=== PATIENT | male | born 1935 ===

== ENCOUNTER 2016-07-19 21:25 | Inpatient (IN) | payer MEDICARE, MEDICAID ==
[2016-07-19 21:31] VITALS: BMI 35.6
[2016-07-19] MEDS ORDERED: Promethazine/Cod 6.25mg-10mg/5ml Syr UD PO PRN (22:33)
[2016-07-19] MEDS: Oxycodone/Acetaminophen 5/325 mg Tab PO PRN (23:08)
[2016-07-20] MEDS: cefTRIAXone 2 GM in Sodium Chloride 0.9% 100 ML IVPB SCH (05:12)
[2016-07-20] MEDS: Enoxaparin 40 mg Syringe SC SCH (08:54)
[2016-07-20] MEDS: Oxycodone/Acetaminophen 5/325 mg Tab PO PRN ×2 (08:54→22:35)
[2016-07-20] MEDS: Pantoprazole 40 mg EC Tab PO SCH (08:55)
[2016-07-20] MEDS ORDERED: Patient's Own Med (Vancomycin 750mg [Vancomycin 750 Mg In Ns] 750 MG) IVPB SCH (09:00)
[2016-07-20] MEDS ORDERED: cefTRIAXone (Rocephin) 2 gm Inj IVPB SCH (09:00)
[2016-07-20] MEDS ORDERED: cefTRIAXone 2 GM in Sodium Chloride 0.9% 100 ML IVPB SCH (09:00)
[2016-07-20] MEDS: Insulin Lispro (humaLOG) 100 Units/ml Inj SC SCH ×2 (16:30→21:19)
--- NOTE | 2016-07-20 18:25 | CP.PCM.HP ---
History of Present Illness - History of Present Illness History of Present Illness: 81 years old male with PMH of Anemia,DM II and Gastritis,history prostate cancer ( on remission) brought to the ED bec of 2 days hx of sharp, intense,continuous, generalized abdominal pain, associated with vomiting, fever , chills, diarrhea, and loss of appetite. He was found to be hypotensive,, febrile with elevated WBC, bandemia ,elevated LFT-s and total jefferson,elevated Troponin. Ct abdomen showed :diverticulosis and CBD dilatation Patient admitted with severe sepsis to ICU due to cholangitis , started on IVF , and antibiotics . Surgery , GI and ID consulted.He underwent open Cholecystectomy, Cholangiogram and CBD Exploration and at present post op day 5 and doing well. Right upper quadrant ELYSIA drain and T-tube present with small drainage and antibiotics changed to Vanco , Flagyl and rocephin . Patient transferred to TCU for physical therapy and continuation of IV antibiotics At present feeling well, denies any abdominal pain, nausea, vomiting, fever, chills. tolerating diet. PMH: Anemia, Dementia, Diabetes, Gastritis, HTN, Cancer of the Prostate with seeding PSH:open c]holecystectomy SH: No illegal drugs; No cigarette smoking; Occasional Alcohol; Lives with the family FH: No Known Family Hx Allergies: NKDA ROS ; 14 point system review negative except above Present on Admission - Present on Admission Any Indicators Present on Admission: No Review of Systems - Review of Systems All systems: reviewed and no additional remarkable complaints except Past Patient History - Infectious Disease Hx of Infectious Diseases: None - Tetanus Immunizations Tetanus Immunization: Unknown - Past Medical History & Family History Past Medical History?: Yes Past Family History: Reviewed and not pertinent - Past Social History Smoking Status: Never Smoked Chewing Tobacco Use: No Cigar Use: No Alcohol: None Drugs: Denies Home Situation {Lives}: With Family Domestic Violence: Negative - CARDIAC Hx Hypertension: Yes - PULMONARY Hx Respiratory Disorders: No - NEUROLOGICAL Hx Dementia: Yes - HEENT Hx Deafness: (Hard of hearing) - RENAL Hx Chronic Kidney Disease: No - ENDOCRINE/METABOLIC Hx Hypothyroidism: Yes - HEMATOLOGICAL/ONCOLOGICAL Hx Anemia: Yes - INTEGUMENTARY Hx Dermatological Problems: No - MUSCULOSKELETAL/RHEUMATOLOGICAL Hx Falls: No - GASTROINTESTINAL Hx Gastritis: Yes - GENITOURINARY/GYNECOLOGICAL Hx Genitourinary Disorders: No - PSYCHIATRIC Hx Substance Use: No - SURGICAL HISTORY Hx Cholecystectomy: Yes - ANESTHESIA Hx Anesthesia: Yes Hx Anesthesia Reactions: No Meds Allergies/Adverse Reactions: Allergies Allergy/AdvReac Type Severity Reaction Status Date / Time No Known Allergies Allergy Verified 07/12/16 17:21 Physical Exam - Constitutional Appears: Non-toxic, No Acute Distress - Head Exam Head Exam: ATRAUMATIC, NORMAL INSPECTION, NORMOCEPHALIC - Eye Exam Eye Exam: EOMI, Normal appearance, PERRL Pupil Exam: NORMAL ACCOMODATION - ENT Exam ENT Exam: Mucous Membranes Moist, Normal Exam - Neck Exam Neck exam: Positive for: Full Rom, Normal Inspection - Respiratory Exam Respiratory Exam: Clear to Auscultation Bilateral, NORMAL BREATHING PATTERN. absent: Rales, Rhonchi, Wheezes - Cardiovascular Exam Cardiovascular Exam: REGULAR RHYTHM, RRR, +S1, +S2. absent: JVD - GI/Abdominal Exam GI & Abdominal Exam: Normal Bowel Sounds, Soft. absent: Distended, Guarding, Rebound Additional comments: right upper quadrant T tube and ELYSIA drain in place - Rectal Exam Rectal Exam: Deferred - Extremities Exam Extremities exam: Positive for: normal capillary refill, normal inspection, pedal pulses present. Negative for: calf tenderness, pedal edema - Back Exam Back exam: NORMAL INSPECTION - Neurological Exam Neurological exam: Alert, CN II-XII Intact, Oriented x3, Reflexes Normal - Psychiatric Exam Psychiatric exam: Normal Affect, Normal Mood - Skin Skin Exam: Dry, Intact, Pallor, Warm Results - Vital Signs Recent Vital Signs: Last Vital Signs Temp 97.9 F 07/20/16 18:08 Pulse 88 07/20/16 18:08 Resp 20 07/20/16 18:08 BP 132/78 07/20/16 18:08 Pulse Ox 99 07/20/16 18:08 Assessment & Plan - Assessment and Plan (Free Text) Assessment: 81 years old male with PMH of Anemia,DM II and Gastritis,history prostate cancer ( on remission) brought to the ED bec of 2 days hx of sharp, intense,continuous, generalized abdominal pain, associated with vomiting, fever , chills, diarrhea, and loss of appetite. He was found to be hypotensive,, febrile with elevated WBC, bandemia ,elevated LFT-s and total jefferson, elevatedTroponin. Ct abdomen showed :diverticulosis and CBD dilatation Patient admitted with severe sepsis to ICU , started on IVF, and antibiotics . Surgery , GI and ID consulted. 3 - underwent Open Cholecystectomy, Cholangiogram and CBD Exploration. At present post op #5 doing well , extubated , hemodynamically stable, tolerating diet. right upper quadrant ELYSIA drain and T-tube present with small drainage. Initial blood cx x 2 were positive for E.coli so patient was started on Meropenem and Flagyl and also received 1 dose of Genta for 7 days. Repeat blood cx with no growth but wound cx growing Enterococcus Gallinarum. Antibiotics changed to Vanco 750 mg IV daily for 7 more dys for enterococcus , Rocephin 2 G Iv daily for 7 more days and Flagyl 500 mg PO q8 for 7 more days for E. Coli bacteremia Physical therapy consulted and recommended TCU. Patient now in TCU for physical therapy and continue IV antibiotics. 1. Choledocholithiasis/Cholangitis with sepsis s/p open Cholecystectomy and intraop CBD exploration # 5 , doing well LFT-s, total bilirubin and WBC trending now normalized Continue pain management PRN Tolerating diet. Blood c/s x 2 positive for E coli and repeat blood cx is with no growth , wound cx positive for Enterococcus Received Meropenem, and Flagyl IV for 7 days Continue Vanco , Flagyl and Rocephin for 7 more days as per ID Continue ambulation Keep T-tube and ELYSIA drain in place 2.DM II uncontrolled Continue accu / insulin coverage on metformin Actos and Amaryl on hold 3.Gastritis on Protonix 4. Hypertension lisinopril on hold Started on Coreg and BP controlled 5.Diverticulosis stable , no signs of diverticulitis C diff : negative on Flagyl 6. History prostate cancer on remission 7. DVT prophylaxis lovenox and SCD
[2016-07-21] MEDS: cefTRIAXone 2 GM in Sodium Chloride 0.9% 100 ML IVPB SCH (05:04)
[2016-07-21] MEDS: Insulin Lispro (humaLOG) 100 Units/ml Inj SC SCH ×4 (07:26→21:23)
[2016-07-21] MEDS: Pantoprazole 40 mg EC Tab PO SCH (09:17)
[2016-07-21] MEDS: Enoxaparin 40 mg Syringe SC SCH (09:17)
--- NOTE | 2016-07-21 10:14 | CP.PCM.PN ---
<Corrine Martinez - Last Filed: 07/21/16 10:25> Subjective - Date & Time of Evaluation Date of Evaluation: 07/21/16 Time of Evaluation: 09:45 - Subjective Subjective: GENERAL SURGERY PROGRESS NOTE: DR. CARROLL Pt seen and examined at bedside in the TCU this morning. Pt seen resting comfortably in bed at time of visit. Daughter present at the bedside. Says he is feeling well overall today, does admit to a small amount of abdominal pain. Tolerating diet, however he says he does not have much of an appetite. Denies f/ n/v/c/sob/cp. Admits to passing flatus, denies diarrhea, says he had a bowel movement yesterday. Says he is walking well with physical therapy. Denies any other problems. Objective - Vital Signs/Intake and Output Vital Signs (last 24 hours): Temp Pulse Resp BP Pulse Ox 98.1 F 87 20 137/74 96 07/21/16 07:52 07/21/16 07:52 07/21/16 07:52 07/21/16 07:52 07/21/16 07:52 - Medications Medications: Current Medications Acetaminophen (Tylenol 325mg Tab) 650 mg PO Q4 PRN PRN Reason: fever 100.4 or pain 1-3 Enoxaparin Sodium (Lovenox) 40 mg SC DAILY [facility] PRN Reason: Protocol Last Admin: 07/21/16 09:17 Dose: 40 mg Ceftriaxone Sodium 2 gm/ (Sodium Chloride) 100 mls @ 100 mls/hr IVPB DAILY@ 0600 [facility] Last Admin: 07/21/16 05:04 Dose: 100 mls/hr Vancomycin HCl 750 mg/ Sodium (Chloride) 250 mls @ 166.667 mls/hr IVPB DAILY@ 1700 [facility] Insulin Human Lispro (Humalog) 0 units SC ACHS [facility] PRN Reason: Protocol Last Admin: 07/21/16 07:26 Dose: 3 units Metformin HCl (Glucophage) 1,000 mg PO BID [facility] Last Admin: 07/21/16 09:17 Dose: 1,000 mg Metronidazole (Flagyl) 500 mg PO Q8 [facility] Last Admin: 07/21/16 09:17 Dose: 500 mg Oxycodone/Acetaminophen (Percocet 5/325 Mg Tab) 1 tab PO Q4 PRN PRN Reason: Pain, severe (8-10) Stop: 07/22/16 22:34 Last Admin: 07/20/16 22:35 Dose: 1 tab Pantoprazole Sodium (Protonix Ec Tab) 40 mg PO DAILY [facility] Last Admin: 07/21/16 09:17 Dose: 40 mg Promethazine HCl/Codeine (Phenergan/Codeine Oral Syrup) 10 ml PO Q6 PRN PRN Reason: Cough Last Admin: 07/21/16 01:31 Dose: 10 ml - Constitutional Appears: Well, Non-toxic, No Acute Distress - Eye Exam Eye Exam: EOMI, Normal appearance - Respiratory Exam Respiratory Exam: NORMAL BREATHING PATTERN. absent: Respiratory Distress - Cardiovascular Exam Cardiovascular Exam: REGULAR RHYTHM - GI/Abdominal Exam GI & Abdominal Exam: Soft, Tenderness (slight tenderness to RUQ). absent: Distended, Firm, Guarding, Rigid Additional comments: Cristiano and T tube in place and draining. Dressings c/d/i - Neurological Exam Neurological Exam: Alert, Awake, Oriented x3 - Psychiatric Exam Psychiatric exam: Normal Affect, Normal Mood - Skin Skin Exam: Normal Color, Warm Assessment and Plan - Assessment and Plan (Free Text) Assessment: 81 yo male with severe sepsis and choledocholithiasis with failed ERCP and unsuccessful PTC now s/p open cholecystectomy with IOC, control of hepatic bleeding, common bile duct exploration, T tube placement POD #6 Plan: - Pt seen and evaluated at bedside. - Afebrile, VSS - T Tube had 150 cc bilious output overnight per nursing - Cristiano drain had 50 cc serosanguinous overnight - Tolerating low fat/CCD diet - C/w abx per ID - Plan discussed with Dr. Carroll -Dr. Martinez, PGY-1 <Des Carroll - Last Filed: 07/25/16 21:45> Objective - Vital Signs/Intake and Output Vital Signs (last 24 hours): Temp Pulse Resp BP Pulse Ox 97.8 F 20 L 89 H 126/85 98 07/25/16 20:35 07/25/16 20:35 07/25/16 20:35 07/25/16 20:35 07/25/16 20:35 - Medications Medications: Current Medications Acetaminophen (Tylenol 325mg Tab) 650 mg PO Q4 PRN PRN Reason: fever 100.4 or pain 1-3 Last Admin: 07/23/16 14:20 Dose: 650 mg Enoxaparin Sodium (Lovenox) 40 mg SC DAILY [facility] PRN Reason: Protocol Last Admin: 07/25/16 09:21 Dose: 40 mg Ceftriaxone Sodium 2 gm/ (Sodium Chloride) 100 mls @ 100 mls/hr IVPB DAILY@ 0600 [facility] Last Admin: 07/25/16 05:00 Dose: 100 mls/hr Vancomycin HCl 750 mg/ Sodium (Chloride) 250 mls @ 166.667 mls/hr IVPB DAILY@ 1700 [facility] Last Admin: 07/25/16 17:06 Dose: 166.667 mls/hr Insulin Human Lispro (Humalog) 0 units SC ACHS [facility] PRN Reason: Protocol Last Admin: 07/25/16 17:06 Dose: 3 units Metformin HCl (Glucophage) 1,000 mg PO BID [facility] Last Admin: 07/25/16 17:07 Dose: 1,000 mg Metronidazole (Flagyl) 500 mg PO Q8 [facility] Last Admin: 07/25/16 17:07 Dose: 500 mg Oxycodone/Acetaminophen (Percocet 5/325 Mg Tab) 1 tab PO Q4 PRN PRN Reason: Pain, moderate (4-7) Stop: 07/26/16 14:26 Last Admin: 07/24/16 21:29 Dose: 1 tab Oxycodone/Acetaminophen (Percocet 5/325 Mg Tab) 1 tab PO Q4 PRN PRN Reason: Pain, severe (8-10) Stop: 07/26/16 16:55 Pantoprazole Sodium (Protonix Ec Tab) 40 mg PO DAILY [facility] Last Admin: 07/25/16 09:21 Dose: 40 mg Promethazine HCl/Codeine (Phenergan/Codeine Oral Syrup) 10 ml PO Q6 PRN PRN Reason: Cough Last Admin: 07/21/16 01:31 Dose: 10 ml - Labs Labs: 07/25/16 05:30 Attending/Attestation - Attestation I have personally seen and examined this patient.: Yes I have fully participated in the care of the patient.: Yes I have reviewed all pertinent clinical information, including history, physical exam and plan: Yes Notes (Text): 07/25/16 21:44 Pt was seen and examined at bedside on 07/23/16 Agree with above note and assessment Pt is improving clinically C.w current mx DC plan
[2016-07-21] MEDS: Oxycodone/Acetaminophen 5/325 mg Tab PO PRN ×2 (11:31→17:58)
[2016-07-22] MEDS: Oxycodone/Acetaminophen 5/325 mg Tab PO PRN ×3 (00:09→13:54)
[2016-07-22] MEDS: cefTRIAXone 2 GM in Sodium Chloride 0.9% 100 ML IVPB SCH (05:02)
[2016-07-22] MEDS: Insulin Lispro (humaLOG) 100 Units/ml Inj SC SCH ×4 (07:01→21:24)
[2016-07-22] MEDS: Enoxaparin 40 mg Syringe SC SCH (08:35)
[2016-07-22] MEDS: Pantoprazole 40 mg EC Tab PO SCH (08:36)
--- NOTE | 2016-07-22 10:25 | CP.PCM.PN ---
Subjective - Date & Time of Evaluation Date of Evaluation: 07/22/16 Time of Evaluation: 10:23 - Subjective Subjective: Patient seen and examined at bedside, states he is feeling better today, tolerating pt and all meds well. No cp, no dyspnea, pain is well controlled. T Tube 160 cc bilious overnight, 40 cc from anabela serosang overnight. Tolerating diet well. VSS NAD. Objective - Vital Signs/Intake and Output Vital Signs (last 24 hours): Temp Pulse Resp BP Pulse Ox 97.2 F L 88 20 132/67 20 L 07/22/16 08:54 07/22/16 08:54 07/22/16 08:54 07/22/16 08:54 07/22/16 08:54 Intake and Output: 07/22/16 07/22/16 06:59 18:59 Output Total 200 Balance -200 - Medications Medications: Current Medications Acetaminophen (Tylenol 325mg Tab) 650 mg PO Q4 PRN PRN Reason: fever 100.4 or pain 1-3 Enoxaparin Sodium (Lovenox) 40 mg SC DAILY [facility] PRN Reason: Protocol Last Admin: 07/22/16 08:35 Dose: 40 mg Ceftriaxone Sodium 2 gm/ (Sodium Chloride) 100 mls @ 100 mls/hr IVPB DAILY@ 0600 [facility] Last Admin: 07/22/16 05:02 Dose: 100 mls/hr Vancomycin HCl 750 mg/ Sodium (Chloride) 250 mls @ 166.667 mls/hr IVPB DAILY@ 1700 [facility] Last Admin: 07/21/16 17:33 Dose: 166.667 mls/hr Insulin Human Lispro (Humalog) 0 units SC ACHS [facility] PRN Reason: Protocol Last Admin: 07/22/16 07:01 Dose: 3 units Metformin HCl (Glucophage) 1,000 mg PO BID [facility] Last Admin: 07/22/16 08:36 Dose: 1,000 mg Metronidazole (Flagyl) 500 mg PO Q8 [facility] Last Admin: 07/22/16 08:36 Dose: 500 mg Oxycodone/Acetaminophen (Percocet 5/325 Mg Tab) 1 tab PO Q4 PRN PRN Reason: Pain, severe (8-10) Stop: 07/22/16 22:34 Last Admin: 07/22/16 08:35 Dose: 1 tab Pantoprazole Sodium (Protonix Ec Tab) 40 mg PO DAILY [facility] Last Admin: 07/22/16 08:36 Dose: 40 mg Promethazine HCl/Codeine (Phenergan/Codeine Oral Syrup) 10 ml PO Q6 PRN PRN Reason: Cough Last Admin: 07/21/16 01:31 Dose: 10 ml - Constitutional Appears: Non-toxic, No Acute Distress - Head Exam Head Exam: ATRAUMATIC, NORMOCEPHALIC - Eye Exam Eye Exam: EOMI, Normal appearance, PERRL Pupil Exam: NORMAL ACCOMODATION - ENT Exam ENT Exam: Mucous Membranes Moist, Normal Exam - Neck Exam Neck Exam: Full ROM, Normal Inspection - Respiratory Exam Respiratory Exam: Clear to Ausculation Bilateral, NORMAL BREATHING PATTERN. absent: Wheezes, Respiratory Distress - Cardiovascular Exam Cardiovascular Exam: RRR, +S1, +S2. absent: Gallop, Rubs - GI/Abdominal Exam GI & Abdominal Exam: Soft, Tenderness (op sites, drains in place), Normal Bowel Sounds. absent: Mass, Organomegaly - Extremities Exam Extremities Exam: Normal Capillary Refill. absent: Calf Tenderness - Back Exam Back Exam: absent: CVA tenderness (L), CVA tenderness (R) - Neurological Exam Neurological Exam: Alert, Awake - Psychiatric Exam Psychiatric exam: Normal Affect, Normal Mood - Skin Skin Exam: Dry, Warm Assessment and Plan - Assessment and Plan (Free Text) Plan: 81 year old male PMH of Anemia, DM II and Gastritis, history prostate cancer (remission) initially presented with 2 days hx of sharp, intense, continuous, generalized abdominal pain, associated with vomiting, fever, chills , diarrhea, and loss of appetite. He was found to be hypotensive, febrile with elevated WBC, bandemia, elevated LFT-s and total jefferson, elevatedTroponin. Ct abdomen showed: diverticulosis and CBD dilatation Patient admitted with severe sepsis to ICU, started on IVF, and antibiotics. Surgery, GI and ID consulted. 07/15/16 - underwent Open Cholecystectomy, Cholangiogram and CBD Exploration. ( Failed ERCP and unsuccessful PTC now s/p open cholecystectomy with IOC, control of hepatic bleeding, common bile duct exploration, T tube placement) At present post op doing well, extubated, hemodynamically stable, tolerating diet. right upper quadrant ELYSIA drain and T-tube present both with small drainage. Initial blood cx x2 were positive for E.coli so patient was started on Meropenem and Flagyl and also received 1 dose of Genta for 7 days. Repeat blood cx with no growth but wound cx growing Enterococcus Gallinarum. Antibiotics changed to Vanco 750 mg IV daily for 7 more dys for enterococcus, Rocephin 2 G Iv daily for 7 more days and Flagyl 500 mg PO q8 for 7 more days for E. Coli bacteremia Physical therapy consulted and recommended TCU. Patient now in TCU for physical therapy and continue IV antibiotics. 1. Choledocholithiasis/Cholangitis with sepsis s/p open Cholecystectomy and intraop CBD exploration #7, doing well LFT-s, total bilirubin and WBC trending now normalized Continue pain management PRN Followed by surgery as well, Dr. Carroll, appreciated Tolerating diet. Blood c/s x 2 positive for E coli and repeat blood cx is with no growth, wound cx positive for Enterococcus Received Meropenem, and Flagyl IV for 7 days Continue Vanco , Flagyl and Rocephin today is day 4 of 7 more days as per ID Continue ambulation Keep T-tube and ELYSIA drain in place 2.DM II uncontrolled Continue accu / insulin coverage on metformin Actos and Amaryl on hold 3.Gastritis on Protonix 4. Hypertension lisinopril on hold Started on Coreg and BP controlled 5.Diverticulosis stable , no signs of diverticulitis C diff : negative on Flagyl 6. History prostate cancer on remission 7. DVT prophylaxis lovenox and SCD
[2016-07-23] MEDS: cefTRIAXone 2 GM in Sodium Chloride 0.9% 100 ML IVPB SCH (05:57)
[2016-07-23] MEDS: Insulin Lispro (humaLOG) 100 Units/ml Inj SC SCH ×4 (07:11→22:04)
--- NOTE | 2016-07-23 07:23 | CP.PCM.PN ---
<Bianca Baron - Last Filed: 07/23/16 07:44> Subjective - Date & Time of Evaluation Date of Evaluation: 07/23/16 Time of Evaluation: 07:00 - Subjective Subjective: GENERAL SURGERY PROGRESS NOTE FOR DR. CARROLL Patient seen and examined at bedside in the TCU. He is doing well and only has abdominal pain when he moves. He is tolerating his low fat/CCD diet, however he states that he is not eating much because he doesn't like the food. He denies nausea or vomiting. He is having some diarrhea. He is using his IS. He is doing his PT. Objective - Vital Signs/Intake and Output Vital Signs (last 24 hours): Temp Pulse Resp BP Pulse Ox 97.7 F 90 20 134/67 97 07/22/16 20:31 07/22/16 20:31 07/22/16 20:31 07/22/16 20:31 07/22/16 20:31 Intake and Output: 07/23/16 07/23/16 06:59 18:59 Intake Total 100 Output Total 265 Balance -165 - Medications Medications: Current Medications Acetaminophen (Tylenol 325mg Tab) 650 mg PO Q4 PRN PRN Reason: fever 100.4 or pain 1-3 Enoxaparin Sodium (Lovenox) 40 mg SC DAILY [facility] PRN Reason: Protocol Last Admin: 07/22/16 08:35 Dose: 40 mg Ceftriaxone Sodium 2 gm/ (Sodium Chloride) 100 mls @ 100 mls/hr IVPB DAILY@ 0600 [facility] Last Admin: 07/23/16 05:57 Dose: 100 mls/hr Vancomycin HCl 750 mg/ Sodium (Chloride) 250 mls @ 166.667 mls/hr IVPB DAILY@ 1700 [facility] Last Admin: 07/22/16 17:25 Dose: 166.667 mls/hr Insulin Human Lispro (Humalog) 0 units SC ACHS [facility] PRN Reason: Protocol Last Admin: 07/23/16 07:11 Dose: 3 units Metformin HCl (Glucophage) 1,000 mg PO BID [facility] Last Admin: 07/22/16 17:27 Dose: 1,000 mg Metronidazole (Flagyl) 500 mg PO Q8 [facility] Last Admin: 07/23/16 01:36 Dose: 500 mg Pantoprazole Sodium (Protonix Ec Tab) 40 mg PO DAILY [facility] Last Admin: 07/22/16 08:36 Dose: 40 mg Promethazine HCl/Codeine (Phenergan/Codeine Oral Syrup) 10 ml PO Q6 PRN PRN Reason: Cough Last Admin: 07/21/16 01:31 Dose: 10 ml - Constitutional Appears: Non-toxic, No Acute Distress - Head Exam Head Exam: ATRAUMATIC, NORMAL INSPECTION - Eye Exam Eye Exam: EOMI, Normal appearance - Respiratory Exam Respiratory Exam: NORMAL BREATHING PATTERN. absent: Respiratory Distress - Cardiovascular Exam Cardiovascular Exam: +S1, +S2 - GI/Abdominal Exam GI & Abdominal Exam: Soft, Tenderness (RUQ). absent: Distended, Firm, Guarding , Rigid, Rebound Additional comments: Dressings around drains with small amount drainage, changed Gordon in place Cristiano drain with 40cc serosanguinous output T tube with 225cc bilious output - Neurological Exam Neurological Exam: Alert, Awake, Oriented x3 - Psychiatric Exam Psychiatric exam: Normal Affect, Normal Mood - Skin Skin Exam: Dry, Normal Color, Warm Assessment and Plan - Assessment and Plan (Free Text) Assessment: 81yo M with severe sepsis and choledocholithiasis with failed ERCP and unsuccessful PTC now s/p Open cholecystectomy with IOC, control of hepatic bleeding, common bile duct exploration, T tube placement POD #8 - Afebrile, VSS - T Tube had 225cc bilious output - Cristiano drain had 340cc serosanguinous output - Both Cristiano drain and T tube dressings changed - Tolerating low fat/CCD diet - Clear for DC home from surgical standpoint with PO Abx, will discuss with ID - Patient will go home with both T tube and Cristiano drain in place. Dr. Carroll will remove cristiano drain in his office. T tube will remain in place for 4-6 weeks. - Discussed plan with Dr. Carly Baron PGY-2 <Des Carroll - Last Filed: 07/28/16 18:04> Objective - Vital Signs/Intake and Output Vital Signs (last 24 hours): Temp Pulse Resp BP Pulse Ox 98.1 F 90 20 117/66 97 07/28/16 16:58 07/28/16 16:58 07/28/16 16:58 07/28/16 16:58 07/28/16 16:58 Intake and Output: 07/28/16 07/28/16 06:59 18:59 Output Total 150 Balance -150 - Medications Medications: Current Medications Acetaminophen (Tylenol 325mg Tab) 650 mg PO Q4 PRN PRN Reason: fever 100.4 or pain 1-3 Last Admin: 07/23/16 14:20 Dose: 650 mg Enoxaparin Sodium (Lovenox) 40 mg SC DAILY [facility] PRN Reason: Protocol Last Admin: 07/28/16 09:09 Dose: 40 mg Glipizide (Glucotrol Xl) 5 mg PO BRK [facility] Last Admin: 07/28/16 09:09 Dose: 5 mg Ceftriaxone Sodium 2 gm/ (Sodium Chloride) 100 mls @ 100 mls/hr IVPB DAILY@ 0600 [facility] Last Admin: 07/28/16 05:37 Dose: 100 mls/hr Insulin Human Lispro (Humalog) 0 units SC ACHS [facility] PRN Reason: Protocol Last Admin: 07/28/16 17:50 Dose: 1 units Metformin HCl (Glucophage) 1,000 mg PO BID [facility] Last Admin: 07/28/16 17:48 Dose: 1,000 mg Metronidazole (Flagyl) 500 mg PO Q8 [facility] Last Admin: 07/28/16 17:22 Dose: 500 mg Pantoprazole Sodium (Protonix Ec Tab) 40 mg PO DAILY [facility] Last Admin: 07/28/16 09:09 Dose: 40 mg Promethazine HCl/Codeine (Phenergan/Codeine Oral Syrup) 10 ml PO Q6 PRN PRN Reason: Cough Last Admin: 07/21/16 01:31 Dose: 10 ml - Labs Labs: 07/28/16 07:00 07/28/16 07:00 Attending/Attestation - Attestation I have personally seen and examined this patient.: Yes I have fully participated in the care of the patient.: Yes I have reviewed all pertinent clinical information, including history, physical exam and plan: Yes Notes (Text): 07/28/16 18:03 Pt was seen and examined at bedside on 07/23/16 Agree with above note and assessment. C/w current mx DC Plan F/U as out pt
[2016-07-23] MEDS: Pantoprazole 40 mg EC Tab PO SCH (08:48)
[2016-07-23] MEDS: Enoxaparin 40 mg Syringe SC SCH (08:48)
--- NOTE | 2016-07-23 14:55 | CP.PCM.PCO ---
Assessment & Plan - Assessment and Plan (Free Text) Assessment: have d/w hospitalist that pt. needs total of 14 days IV abx for bacteremia. he has already completed 11 days of Iv abx and hence needs another 3 days of IV ceftriaxone for his bacteremia treatement. he is also on metronidazole which can be given by mouth. once pt. is ready to be d/c he can be d/c on oral flagyl adn ampiciiln for another 7 days and to have close f/u with his surgeon as outpatient. All above d/w at length.
[2016-07-23] MEDS ORDERED: Oxycodone/Acetaminophen 5/325 mg Tab PO PRN (16:54)
[2016-07-24] MEDS: cefTRIAXone 2 GM in Sodium Chloride 0.9% 100 ML IVPB SCH (06:37)
[2016-07-24] MEDS: Insulin Lispro (humaLOG) 100 Units/ml Inj SC SCH ×4 (06:38→21:26)
[2016-07-24] MEDS: Pantoprazole 40 mg EC Tab PO SCH (09:08)
[2016-07-24] MEDS: Oxycodone/Acetaminophen 5/325 mg Tab PO PRN ×2 (09:08→21:29)
[2016-07-24] MEDS: Enoxaparin 40 mg Syringe SC SCH (09:09)
[2016-07-25] MEDS: cefTRIAXone 2 GM in Sodium Chloride 0.9% 100 ML IVPB SCH (05:00)
[2016-07-25] MEDS: Insulin Lispro (humaLOG) 100 Units/ml Inj SC SCH ×4 (06:44→23:03)
[2016-07-25 08:23] LABS: BLOOD UREA NITROGEN 15 mg/dl (9-20); CALCIUM 7.6 mg/dL (8.4-10.2); CARBON DIOXIDE 24 mmol/L (22-30); CHLORIDE 104 mmol/L (98-107); GFR AFRICAN-AMERICAN > 60; GLUCOSE,RANDOM 203 mg/dL (75-110); POTASSIUM 3.4 MMOL/L (3.6-5.0); SODIUM 132 mmol/l (132-148)
[2016-07-25] MEDS: Pantoprazole 40 mg EC Tab PO SCH (09:21)
[2016-07-25] MEDS: Enoxaparin 40 mg Syringe SC SCH (09:21)
[2016-07-26] MEDS: cefTRIAXone 2 GM in Sodium Chloride 0.9% 100 ML IVPB SCH (05:52)
[2016-07-26] MEDS: Insulin Lispro (humaLOG) 100 Units/ml Inj SC SCH ×4 (06:37→21:47)
[2016-07-26 08:23] VITALS: RESP 20
[2016-07-26] MEDS: Pantoprazole 40 mg EC Tab PO SCH (09:11)
[2016-07-26] MEDS: Enoxaparin 40 mg Syringe SC SCH (09:12)
--- NOTE | 2016-07-26 09:16 | CP.PCM.PN ---
<Corrine Martinez - Last Filed: 07/26/16 09:19> Subjective - Date & Time of Evaluation Date of Evaluation: 07/26/16 Time of Evaluation: 09:00 - Subjective Subjective: GENERAL SURGERY PROGRESS NOTE FOR DR. CARROLL Pt seen at the bedside in TCU this morning. Seen sitting in the bedside chair with present at time of visit. Reports some mild abdominal pain today. Says he has been eating much more the past few days. Denies f/n/v/c/sob/cp. Passing flatus and having bowel movements which he reports as somewhat loose in consistency. Says he is participating in PT and it is going well. Denies any other complaints at this time. Objective - Vital Signs/Intake and Output Vital Signs (last 24 hours): Temp Pulse Resp BP Pulse Ox 98.1 F 89 20 136/63 98 07/26/16 08:22 07/26/16 08:22 07/26/16 08:22 07/26/16 08:22 07/26/16 08:22 Intake and Output: 07/26/16 07/26/16 06:59 18:59 Output Total 250 Balance -250 - Medications Medications: Current Medications Acetaminophen (Tylenol 325mg Tab) 650 mg PO Q4 PRN PRN Reason: fever 100.4 or pain 1-3 Last Admin: 07/23/16 14:20 Dose: 650 mg Enoxaparin Sodium (Lovenox) 40 mg SC DAILY [facility] PRN Reason: Protocol Last Admin: 07/26/16 09:12 Dose: 40 mg Ceftriaxone Sodium 2 gm/ (Sodium Chloride) 100 mls @ 100 mls/hr IVPB DAILY@ 0600 [facility] Last Admin: 07/26/16 05:52 Dose: 100 mls/hr Vancomycin HCl 750 mg/ Sodium (Chloride) 250 mls @ 166.667 mls/hr IVPB DAILY@ 1700 [facility] Last Admin: 07/25/16 17:06 Dose: 166.667 mls/hr Insulin Human Lispro (Humalog) 0 units SC ACHS [facility] PRN Reason: Protocol Last Admin: 07/26/16 06:37 Dose: 4 units Metformin HCl (Glucophage) 1,000 mg PO BID [facility] Last Admin: 07/26/16 09:11 Dose: 1,000 mg Metronidazole (Flagyl) 500 mg PO Q8 [facility] Last Admin: 07/26/16 09:11 Dose: 500 mg Oxycodone/Acetaminophen (Percocet 5/325 Mg Tab) 1 tab PO Q4 PRN PRN Reason: Pain, moderate (4-7) Stop: 07/26/16 14:26 Last Admin: 07/24/16 21:29 Dose: 1 tab Oxycodone/Acetaminophen (Percocet 5/325 Mg Tab) 1 tab PO Q4 PRN PRN Reason: Pain, severe (8-10) Stop: 07/26/16 16:55 Pantoprazole Sodium (Protonix Ec Tab) 40 mg PO DAILY [facility] Last Admin: 07/26/16 09:11 Dose: 40 mg Promethazine HCl/Codeine (Phenergan/Codeine Oral Syrup) 10 ml PO Q6 PRN PRN Reason: Cough Last Admin: 07/21/16 01:31 Dose: 10 ml - Labs Labs: 07/25/16 05:30 - Constitutional Appears: Well, Non-toxic, No Acute Distress - Head Exam Head Exam: ATRAUMATIC, NORMAL INSPECTION - Eye Exam Eye Exam: EOMI, Normal appearance - Respiratory Exam Respiratory Exam: NORMAL BREATHING PATTERN. absent: Respiratory Distress - Cardiovascular Exam Cardiovascular Exam: REGULAR RHYTHM - GI/Abdominal Exam GI & Abdominal Exam: Soft, Tenderness (slight tenderness RUQ). absent: Distended, Firm, Guarding, Rigid Additional comments: Dressings to drains appear c/d/i [place] well-coapted to upper abdominal incision ELYSIA drain: 20 cc T tube: 100 cc - Neurological Exam Neurological Exam: Alert, Awake, Oriented x3 - Psychiatric Exam Psychiatric exam: Normal Affect, Normal Mood - Skin Skin Exam: Normal Color, Warm Assessment and Plan - Assessment and Plan (Free Text) Assessment: 81 yo male pt w/ severe sepsis and choledocholithiasis with failed ERCP and unsuccessful PTC now s/p open cholecystectomy with IOC, control of hepatic bleeding, common bile duct exploration, T tube placement POD #11 Plan: - Pt seen and examined at bedside - Afebrile, VSS - ELYSIA drain removed today. Pressure dressing applied - T tube dressing changed - Cleared for d/c home per surgery w/ po abx (will discuss with ID) - Pt will go home with T tube in place x 4-6 weeks - Pt to follow up with Dr. Carroll in the office - Plan discussed w/ Dr. Carroll -Corrine Martinez, PGY-1 <Des Carroll - Last Filed: 07/28/16 17:55> Objective - Vital Signs/Intake and Output Vital Signs (last 24 hours): Temp Pulse Resp BP Pulse Ox 98.1 F 90 20 117/66 97 07/28/16 16:58 07/28/16 16:58 07/28/16 16:58 07/28/16 16:58 07/28/16 16:58 Intake and Output: 07/28/16 07/28/16 06:59 18:59 Output Total 150 Balance -150 - Medications Medications: Current Medications Acetaminophen (Tylenol 325mg Tab) 650 mg PO Q4 PRN PRN Reason: fever 100.4 or pain 1-3 Last Admin: 07/23/16 14:20 Dose: 650 mg Enoxaparin Sodium (Lovenox) 40 mg SC DAILY [facility] PRN Reason: Protocol Last Admin: 07/28/16 09:09 Dose: 40 mg Glipizide (Glucotrol Xl) 5 mg PO BRK [facility] Last Admin: 07/28/16 09:09 Dose: 5 mg Ceftriaxone Sodium 2 gm/ (Sodium Chloride) 100 mls @ 100 mls/hr IVPB DAILY@ 0600 [facility] Last Admin: 07/28/16 05:37 Dose: 100 mls/hr Insulin Human Lispro (Humalog) 0 units SC ACHS [facility] PRN Reason: Protocol Last Admin: 07/28/16 17:50 Dose: 1 units Metformin HCl (Glucophage) 1,000 mg PO BID [facility] Last Admin: 07/28/16 17:48 Dose: 1,000 mg Metronidazole (Flagyl) 500 mg PO Q8 [facility] Last Admin: 07/28/16 17:22 Dose: 500 mg Pantoprazole Sodium (Protonix Ec Tab) 40 mg PO DAILY [facility] Last Admin: 07/28/16 09:09 Dose: 40 mg Promethazine HCl/Codeine (Phenergan/Codeine Oral Syrup) 10 ml PO Q6 PRN PRN Reason: Cough Last Admin: 07/21/16 01:31 Dose: 10 ml - Labs Labs: 07/28/16 07:00 07/28/16 07:00 Attending/Attestation - Attestation I have personally seen and examined this patient.: Yes I have fully participated in the care of the patient.: Yes I have reviewed all pertinent clinical information, including history, physical exam and plan: Yes Notes (Text): 07/28/16 17:54 Pt was seen and examined at bedside on 07/26/16 Agree with above note and assessment. DC Plan C/w current mx
[2016-07-26] MEDS ORDERED: Potassium Chloride 20 mEq ER Tab PO ONE (09:46)
[2016-07-27] MEDS: cefTRIAXone 2 GM in Sodium Chloride 0.9% 100 ML IVPB SCH (06:13)
[2016-07-27] MEDS: Insulin Lispro (humaLOG) 100 Units/ml Inj SC SCH ×4 (06:56→21:15)
--- NOTE | 2016-07-27 07:21 | CARD ---
APPROVED REPORT EKG Measurement Heart [id number] <Conclusion> Atrial Fibrillation Low voltage QRS Cannot rule out Inferior infarct, age undetermined Abnormal ECG
[2016-07-27] MEDS: Pantoprazole 40 mg EC Tab PO SCH (09:05)
[2016-07-27] MEDS: Enoxaparin 40 mg Syringe SC SCH (09:05)
--- NOTE | 2016-07-27 15:26 | CP.PCM.PN ---
Subjective - Date & Time of Evaluation Date of Evaluation: 07/27/16 Time of Evaluation: 15:00 - Subjective Subjective: pt is afebrile participates with Physical therapy ELYSIA drain removed yesterday T tube drain in place with bilous drainage Pt is tolerating PO intake minimal abdominal discomfort and has some sl tenderness + pedal edema however no calf pain nor tenderness denies CP no cough no SOB Objective - Vital Signs/Intake and Output Vital Signs (last 24 hours): Temp Pulse Resp BP Pulse Ox 97.2 F L 88 20 133/76 98 07/27/16 08:35 07/27/16 08:35 07/27/16 08:35 07/27/16 08:35 07/27/16 08:35 Intake and Output: 07/27/16 07/27/16 06:59 18:59 Output Total 265 Balance -265 - Medications Medications: Current Medications Acetaminophen (Tylenol 325mg Tab) 650 mg PO Q4 PRN PRN Reason: fever 100.4 or pain 1-3 Last Admin: 07/23/16 14:20 Dose: 650 mg Enoxaparin Sodium (Lovenox) 40 mg SC DAILY [facility] PRN Reason: Protocol Last Admin: 07/27/16 09:05 Dose: 40 mg Ceftriaxone Sodium 2 gm/ (Sodium Chloride) 100 mls @ 100 mls/hr IVPB DAILY@ 0600 [facility] Last Admin: 07/27/16 06:13 Dose: 100 mls/hr Vancomycin HCl 750 mg/ Sodium (Chloride) 250 mls @ 166.667 mls/hr IVPB DAILY@ 1700 [facility] Last Admin: 07/26/16 17:05 Dose: 166.667 mls/hr Insulin Human Lispro (Humalog) 0 units SC ACHS [facility] PRN Reason: Protocol Last Admin: 07/27/16 12:04 Dose: 3 units Metformin HCl (Glucophage) 1,000 mg PO BID [facility] Last Admin: 07/27/16 09:05 Dose: 1,000 mg Metronidazole (Flagyl) 500 mg PO Q8 [facility] Last Admin: 07/27/16 09:06 Dose: 500 mg Pantoprazole Sodium (Protonix Ec Tab) 40 mg PO DAILY [facility] Last Admin: 07/27/16 09:05 Dose: 40 mg Promethazine HCl/Codeine (Phenergan/Codeine Oral Syrup) 10 ml PO Q6 PRN PRN Reason: Cough Last Admin: 07/21/16 01:31 Dose: 10 ml - Labs Labs: 07/25/16 05:30 - Constitutional Appears: Non-toxic, No Acute Distress - Head Exam Head Exam: NORMAL INSPECTION, NORMOCEPHALIC - Eye Exam Eye Exam: EOMI, Normal appearance Pupil Exam: NORMAL ACCOMODATION - ENT Exam ENT Exam: Mucous Membranes Moist, Normal External Ear Exam - Neck Exam Neck Exam: Full ROM. absent: Meningismus - Respiratory Exam Respiratory Exam: NORMAL BREATHING PATTERN. absent: Rales, Wheezes, Respiratory Distress - Cardiovascular Exam Cardiovascular Exam: REGULAR RHYTHM, +S1, +S2 - GI/Abdominal Exam GI & Abdominal Exam: Soft, Tenderness (minimal RUQ tenderness), Normal Bowel Sounds Additional comments: T Tube drain in place with bilious drainage dalia intact- wound looks clean - Extremities Exam Extremities Exam: Full ROM, Normal Capillary Refill, Pedal Edema. absent: Calf Tenderness - Back Exam Back Exam: Full ROM. absent: CVA tenderness (L), CVA tenderness (R) - Neurological Exam Neurological Exam: Alert, Awake, CN II-XII Intact, Oriented x3 Neuro motor strength exam: Left Upper Extremity: 5, Right Upper Extremity: 5, Left Lower Extremity: 5, Right Lower Extremity: 5 - Psychiatric Exam Psychiatric exam: Normal Affect, Normal Mood - Skin Skin Exam: Dry, Normal Color, Warm Assessment and Plan - Assessment and Plan (Free Text) Assessment: 81 year old male PMH of Anemia, DM II and Gastritis, history prostate cancer (remission) initially presented with 2 days hx of sharp, intense, continuous, generalized abdominal pain, associated with vomiting, fever, chills , diarrhea, and loss of appetite. He was found to be hypotensive, febrile with elevated WBC, bandemia, elevated LFT-s and total jefferson, elevatedTroponin. Ct abdomen showed: diverticulosis and CBD dilatation Patient admitted with severe sepsis to ICU, started on IVF, and antibiotics. Surgery, GI and ID consulted. 07/15/16 - underwent Open Cholecystectomy, Cholangiogram and CBD Exploration. ( Failed ERCP and unsuccessful PTC ) At present doing well, tolerating diet, ELYSIA drain was d/c however T-tube is still in place . Initial blood cx x2 were positive for E.coli so patient was started on Meropenem and Flagyl and also received 1 dose of Genta for 7 days. Repeat blood cx with no growth but wound cx growing Enterococcus Gallinarum. Now in TCU for Physical therapy and to continue IV antibiotics 1. Sepsis sec to Choledocholithiasis/Cholangitis s/p open Cholecystectomy and intraop CBD exploration LFT-s, total bilirubin and WBC t normalized pain management PRN Followed by surgery as well, Dr. Carroll Tolerating diet. Blood c/s x 2 positive for E coli and repeat blood cx is with no growth, wound cx positive for Enterococcus Received Meropenem, and Flagyl IV Now on IV Ceftriaxone and PO Flagyl- will continue until pt is d/c on Tuesday d/c IV Vanco ELYSIA drain d/c yesterday T tube drain in place rpt labs in am 2.DM II uncontrolled Continue accu / insulin coverage on metformin add low dose Glucotrol 3.Gastritis on Protonix 4. Hypertension Bp controlled without meds 5.Diverticulosis stable , no signs of diverticulitis C diff : negative on Flagyl 6. History prostate cancer on remission 7. DVT prophylaxis lovenox and SCD
[2016-07-28] MEDS: cefTRIAXone 2 GM in Sodium Chloride 0.9% 100 ML IVPB SCH (05:37)
[2016-07-28] MEDS: Insulin Lispro (humaLOG) 100 Units/ml Inj SC SCH ×4 (06:37→21:15)
[2016-07-28 07:48] LABS: HEMATOCRIT 30.4 % (35.0-51.0); RED CELL DISTRIBUTION WIDTH 15.9 % (11.5-14.5); WHITE BLOOD COUNT 7.4 K/uL (4.8-10.8)
[2016-07-28 07:51] LABS: ALB/GLOB RATIO 0.9 (1.0-2.1); ALKALINE PHOSPHATASE 227 U/L (38-126); ALT/SGPT 43 U/L (21-72); AST/SGOT 42 U/L (17-59); BILIRUBIN,TOTAL 0.7 mg/dl (0.2-1.3); BLOOD UREA NITROGEN 15 mg/dl (9-20); CALCIUM 7.9 mg/dL (8.4-10.2); CARBON DIOXIDE 22 mmol/L (22-30); CHLORIDE 105 mmol/L (98-107); GFR AFRICAN-AMERICAN > 60; GLUCOSE,RANDOM 203 mg/dL (75-110); POTASSIUM 3.9 MMOL/L (3.6-5.0); SODIUM 133 mmol/l (132-148)
[2016-07-28 08:07] LABS: MEAN CELL VOLUME 93.5 fl (80.0-94.0)
[2016-07-28] MEDS: Enoxaparin 40 mg Syringe SC SCH (09:09)
[2016-07-28] MEDS: Pantoprazole 40 mg EC Tab PO SCH (09:09)
[2016-07-28] MEDS: GlipiZIDE 5 mg SR Tab PO SCH (09:09)
[2016-07-29] MEDS: cefTRIAXone 2 GM in Sodium Chloride 0.9% 100 ML IVPB SCH (05:33)
[2016-07-29] MEDS: Insulin Lispro (humaLOG) 100 Units/ml Inj SC SCH ×4 (06:57→22:08)
[2016-07-29] MEDS: GlipiZIDE 5 mg SR Tab PO SCH (08:33)
[2016-07-29] MEDS: Pantoprazole 40 mg EC Tab PO SCH (08:33)
[2016-07-29] MEDS: Enoxaparin 40 mg Syringe SC SCH (08:33)
--- NOTE | 2016-07-29 09:33 | CP.PCM.PN ---
Subjective - Date & Time of Evaluation Date of Evaluation: 07/29/16 Time of Evaluation: 07:00 - Subjective Subjective: GENERAL SURGERY PROGRESS NOTE FOR DR. GUY Patient seen and examined at bedside in the TCU. He is doing well and only has abdominal pain when he moves. He is tolerating his low fat/CCD diet, however he states that he is not eating much because he doesn't like the food. He denies nausea or vomiting. His TCU stay has been extended for continued PT. Objective - Vital Signs/Intake and Output Vital Signs (last 24 hours): Temp Pulse Resp BP Pulse Ox 98.1 F 83 20 128/62 99 07/29/16 08:17 07/29/16 08:17 07/29/16 08:17 07/29/16 08:17 07/29/16 08:17 Intake and Output: 07/29/16 07/29/16 06:59 18:59 Output Total 50 Balance -50 - Medications Medications: Current Medications Acetaminophen (Tylenol 325mg Tab) 650 mg PO Q4 PRN PRN Reason: fever 100.4 or pain 1-3 Last Admin: 07/23/16 14:20 Dose: 650 mg Enoxaparin Sodium (Lovenox) 40 mg SC DAILY [facility] PRN Reason: Protocol Last Admin: 07/29/16 08:33 Dose: 40 mg Glipizide (Glucotrol Xl) 5 mg PO BRK [facility] Last Admin: 07/29/16 08:33 Dose: 5 mg Ceftriaxone Sodium 2 gm/ (Sodium Chloride) 100 mls @ 100 mls/hr IVPB DAILY@ 0600 [facility] Last Admin: 07/29/16 05:33 Dose: 100 mls/hr Insulin Human Lispro (Humalog) 0 units SC ACHS [facility] PRN Reason: Protocol Last Admin: 07/29/16 06:57 Dose: 2 units Metformin HCl (Glucophage) 1,000 mg PO BID [facility] Last Admin: 07/29/16 08:33 Dose: 1,000 mg Metronidazole (Flagyl) 500 mg PO Q8 [facility] Last Admin: 07/29/16 08:32 Dose: 500 mg Pantoprazole Sodium (Protonix Ec Tab) 40 mg PO DAILY [facility] Last Admin: 07/29/16 08:33 Dose: 40 mg Promethazine HCl/Codeine (Phenergan/Codeine Oral Syrup) 10 ml PO Q6 PRN PRN Reason: Cough Last Admin: 07/21/16 01:31 Dose: 10 ml - Labs Labs: 07/28/16 07:00 07/28/16 07:00 - Constitutional Appears: Non-toxic, No Acute Distress - Head Exam Head Exam: ATRAUMATIC, NORMAL INSPECTION - Respiratory Exam Respiratory Exam: NORMAL BREATHING PATTERN. absent: Respiratory Distress - Cardiovascular Exam Cardiovascular Exam: +S1, +S2 - GI/Abdominal Exam GI & Abdominal Exam: Soft, Tenderness (mild tenderness around T tube skin site) . absent: Distended, Firm, Guarding, Rigid, Rebound Additional comments: [place] in place over incision Small erythema around T tube insertion site. T tube in place with bilious drainage - Neurological Exam Neurological Exam: Alert, Awake, Oriented x3 - Psychiatric Exam Psychiatric exam: Normal Affect, Normal Mood - Skin Skin Exam: Dry, Normal Color, Warm Assessment and Plan - Assessment and Plan (Free Text) Assessment: 81yo M with severe sepsis and choledocholithiasis with failed ERCP and unsuccessful PTC now s/p Open cholecystectomy with IOC, control of hepatic bleeding, common bile duct exploration, T tube placement POD #14 - Afebrile, VSS - Tolerating low fat/CCD diet - Removed dalia today - Placed another stitch under local at bedside to further secure T tube drain. - T tube will remain in place for 4-6 weeks following surgery. - Surgery will sign off at this time. Please reconsult as necessary. - Discussed plan with Dr. Carly Baron PGY-2
[2016-07-29] MEDS ORDERED: Lidocaine 1% Inj (20ml) IJ ONE (14:16)
--- NOTE | 2016-07-29 14:32 | CP.PCM.PN ---
Subjective - Date & Time of Evaluation Date of Evaluation: 07/29/16 Time of Evaluation: 12:30 - Subjective Subjective: Pt seen and examined. Denied any complaint. Objective - Vital Signs/Intake and Output Vital Signs (last 24 hours): Temp Pulse Resp BP Pulse Ox 98.1 F 87 20 121/63 99 07/29/16 08:17 07/29/16 12:25 07/29/16 08:17 07/29/16 12:25 07/29/16 08:17 Intake and Output: 07/29/16 07/29/16 06:59 18:59 Output Total 250 Balance -250 - Medications Medications: Current Medications Acetaminophen (Tylenol 325mg Tab) 650 mg PO Q4 PRN PRN Reason: fever 100.4 or pain 1-3 Last Admin: 07/23/16 14:20 Dose: 650 mg Carvedilol (Coreg) 6.25 mg PO Q12 [facility] Last Admin: 07/29/16 12:25 Dose: 6.25 mg Enoxaparin Sodium (Lovenox) 40 mg SC DAILY [facility] PRN Reason: Protocol Last Admin: 07/29/16 08:33 Dose: 40 mg Glipizide (Glucotrol Xl) 5 mg PO BRK [facility] Last Admin: 07/29/16 08:33 Dose: 5 mg Ceftriaxone Sodium 2 gm/ (Sodium Chloride) 100 mls @ 100 mls/hr IVPB DAILY@ 0600 [facility] Last Admin: 07/29/16 05:33 Dose: 100 mls/hr Insulin Human Lispro (Humalog) 0 units SC ACHS [facility] PRN Reason: Protocol Last Admin: 07/29/16 12:14 Dose: 3 units Metformin HCl (Glucophage) 1,000 mg PO BID [facility] Last Admin: 07/29/16 08:33 Dose: 1,000 mg Metronidazole (Flagyl) 500 mg PO Q8 [facility] Last Admin: 07/29/16 08:32 Dose: 500 mg Pantoprazole Sodium (Protonix Ec Tab) 40 mg PO DAILY [facility] Last Admin: 07/29/16 08:33 Dose: 40 mg Promethazine HCl/Codeine (Phenergan/Codeine Oral Syrup) 10 ml PO Q6 PRN PRN Reason: Cough Last Admin: 07/21/16 01:31 Dose: 10 ml - Labs Labs: 07/28/16 07:00 07/28/16 07:00 - Constitutional Appears: No Acute Distress - Head Exam Head Exam: ATRAUMATIC - Eye Exam Eye Exam: absent: Scleral icterus - ENT Exam ENT Exam: Mucous Membranes Moist - Neck Exam Neck Exam: absent: Meningismus - Respiratory Exam Respiratory Exam: absent: Rhonchi, Wheezes, Respiratory Distress - Cardiovascular Exam Cardiovascular Exam: REGULAR RHYTHM, +S1, +S2 - GI/Abdominal Exam GI & Abdominal Exam: Soft. absent: Tenderness - Rectal Exam Rectal Exam: Deferred - Neurological Exam Neurological Exam: Alert, Oriented x3 - Psychiatric Exam Psychiatric exam: Normal Affect - Skin Skin Exam: Dry, Intact Assessment and Plan - Assessment and Plan (Free Text) Assessment: 81 yo male with history of Anemia, DM II, Gastritis and prostate cancer (on remission) admitted because of abdominal pain accompanied with vomiting, fever, chills, diarrhea, and loss of appetite. He was hypotensive, febrile with leukocytosis (elevated bands), elevated LFTs and elevated Troponin. Ct of abdomen showed: diverticulosis and CBD dilatation Patient was admitted to ICU and started on IVF and antibiotics. On 07/15/16 he had Open Cholecystectomy, Cholangiogram and CBD Exploration. Blood culture was positive for E coli. He was put on Meropenem, Flagyl and Genta. Pt did well and was transferred to TCU for IV antibiotics and Physical therapy. 1. Sepsis sec to Choledocholithiasis/Cholangitis s/p open Cholecystectomy and intraop CBD exploration LFTs improved and WBC back to normal level Tolerating diet. repeat blood culture: negative for growth wound culture positive for Enterococcus Received Meropenem, and Flagyl IV on IV Ceftriaxone and PO Flagyl, to continue until discharge on Tuesday 2. DM II uncontrolled BS uncontrolled continue Metformin and Glucotrol 3.Gastritis on Protonix 4. Hypertension BP controlled without meds 5. DVT prophylaxis Lovenox 40mg SC daily
[2016-07-30] MEDS: cefTRIAXone 2 GM in Sodium Chloride 0.9% 100 ML IVPB SCH (05:34)
[2016-07-30] MEDS: Insulin Lispro (humaLOG) 100 Units/ml Inj SC SCH ×4 (07:06→23:40)
[2016-07-30] MEDS: Enoxaparin 40 mg Syringe SC SCH (09:31)
[2016-07-30] MEDS: Pantoprazole 40 mg EC Tab PO SCH (09:31)
[2016-07-30] MEDS: GlipiZIDE 5 mg SR Tab PO SCH (09:31)
[2016-07-31] MEDS: cefTRIAXone 2 GM in Sodium Chloride 0.9% 100 ML IVPB SCH (05:40)
[2016-07-31] MEDS: Insulin Lispro (humaLOG) 100 Units/ml Inj SC SCH ×4 (08:43→21:14)
[2016-07-31] MEDS: Pantoprazole 40 mg EC Tab PO SCH (08:43)
[2016-07-31] MEDS: GlipiZIDE 5 mg SR Tab PO SCH (08:43)
[2016-07-31] MEDS: Enoxaparin 40 mg Syringe SC SCH (21:43)
[2016-08-01] MEDS: cefTRIAXone 2 GM in Sodium Chloride 0.9% 100 ML IVPB SCH (05:13)
[2016-08-01] MEDS: Insulin Lispro (humaLOG) 100 Units/ml Inj SC SCH ×4 (08:51→22:32)
[2016-08-01] MEDS: Pantoprazole 40 mg EC Tab PO SCH (08:52)
[2016-08-01] MEDS: GlipiZIDE 5 mg SR Tab PO SCH (08:53)
[2016-08-01] MEDS: Enoxaparin 40 mg Syringe SC SCH (08:53)
[2016-08-01] MEDS ORDERED: Vitamin A/D oint 60G TP ONE (21:33)
[2016-08-02] MEDS: cefTRIAXone 2 GM in Sodium Chloride 0.9% 100 ML IVPB SCH (05:46)
[2016-08-02] MEDS: Insulin Lispro (humaLOG) 100 Units/ml Inj SC SCH ×4 (06:52→21:39)
[2016-08-02 07:35] LABS: HEMATOCRIT 31.3 % (35.0-51.0); MEAN CELL VOLUME 93.8 fl (80.0-94.0); MEAN CORPUSCULAR HEMOGLOBIN 30.6 pg (27.0-31.0); MEAN CORPUSCULAR HGB CONC 32.6 g/dL (33.0-37.0); RED CELL DISTRIBUTION WIDTH 16.7 % (11.5-14.5); WHITE BLOOD COUNT 4.8 K/uL (4.8-10.8)
[2016-08-02 07:56] LABS: BLOOD UREA NITROGEN 19 mg/dl (9-20); CALCIUM 8.4 mg/dL (8.4-10.2); CARBON DIOXIDE 23 mmol/L (22-30); CHLORIDE 103 mmol/L (98-107); GFR AFRICAN-AMERICAN > 60; GLUCOSE,RANDOM 166 mg/dL (75-110); SODIUM 137 mmol/l (132-148)
[2016-08-02] MEDS: Pantoprazole 40 mg EC Tab PO SCH (08:11)
[2016-08-02] MEDS: Enoxaparin 40 mg Syringe SC SCH (08:11)
[2016-08-02] MEDS: GlipiZIDE 5 mg SR Tab PO SCH (08:11)
[2016-08-03] MEDS: cefTRIAXone 2 GM in Sodium Chloride 0.9% 100 ML IVPB SCH (05:10)
[2016-08-03] MEDS: Insulin Lispro (humaLOG) 100 Units/ml Inj SC SCH ×4 (06:41→21:09)
[2016-08-03] MEDS: GlipiZIDE 5 mg SR Tab PO SCH (08:48)
[2016-08-03] MEDS: Pantoprazole 40 mg EC Tab PO SCH (08:49)
[2016-08-03] MEDS: Enoxaparin 40 mg Syringe SC SCH (08:49)
--- NOTE | 2016-08-03 18:53 | CP.PCM.PN ---
Subjective - Date & Time of Evaluation Date of Evaluation: 08/03/16 Time of Evaluation: 10:30 - Subjective Subjective: Pt seen and examined. Complained of irritation just below the scrotum. Objective - Vital Signs/Intake and Output Vital Signs (last 24 hours): Temp Pulse Resp BP Pulse Ox 97.9 F 81 20 121/67 98 08/03/16 17:01 08/03/16 17:01 08/03/16 17:01 08/03/16 17:01 08/03/16 17:01 Intake and Output: 08/03/16 08/03/16 06:59 18:59 Output Total 160 Balance -160 - Medications Medications: Current Medications Acetaminophen (Tylenol 325mg Tab) 650 mg PO Q4 PRN PRN Reason: fever 100.4 or pain 1-3 Last Admin: 07/23/16 14:20 Dose: 650 mg Carvedilol (Coreg) 6.25 mg PO Q12 [facility] Last Admin: 08/03/16 08:48 Dose: 6.25 mg Enoxaparin Sodium (Lovenox) 40 mg SC DAILY [facility] PRN Reason: Protocol Last Admin: 08/03/16 08:49 Dose: 40 mg Glipizide (Glucotrol Xl) 5 mg PO BRK [facility] Last Admin: 08/03/16 08:48 Dose: 5 mg Ceftriaxone Sodium 2 gm/ (Sodium Chloride) 100 mls @ 100 mls/hr IVPB DAILY@ 0600 [facility] Last Admin: 08/03/16 05:10 Dose: 100 mls/hr Insulin Human Lispro (Humalog) 0 units SC ACHS [facility] PRN Reason: Protocol Last Admin: 08/03/16 16:48 Dose: Not Given Ketoconazole (Nizoral) 1 applic TOP BID [facility] Last Admin: 08/03/16 17:26 Dose: 1 appful Metformin HCl (Glucophage) 1,000 mg PO BID [facility] Last Admin: 08/03/16 17:26 Dose: 1,000 mg Metronidazole (Flagyl) 500 mg PO Q8 [facility] Last Admin: 08/03/16 17:26 Dose: 500 mg Pantoprazole Sodium (Protonix Ec Tab) 40 mg PO DAILY [facility] Last Admin: 08/03/16 08:49 Dose: 40 mg - Labs Labs: 08/02/16 06:59 08/02/16 06:59 - Constitutional Appears: No Acute Distress - Head Exam Head Exam: ATRAUMATIC - Eye Exam Eye Exam: absent: Scleral icterus - ENT Exam ENT Exam: Mucous Membranes Moist - Neck Exam Neck Exam: absent: Meningismus - Respiratory Exam Respiratory Exam: absent: Rhonchi, Wheezes, Respiratory Distress - Cardiovascular Exam Cardiovascular Exam: REGULAR RHYTHM, +S1, +S2 - GI/Abdominal Exam GI & Abdominal Exam: Soft. absent: Tenderness Additional comments: T tube drain intact draining copius amount of bile in just 4 hrs - Rectal Exam Rectal Exam: Deferred - Neurological Exam Neurological Exam: Alert, Oriented x3 - Psychiatric Exam Psychiatric exam: Normal Affect - Skin Skin Exam: Dry, Intact Assessment and Plan (1) Cholangitis due to bile duct calculus with obstruction Status: Acute (2) DM2 (diabetes mellitus, type 2) Status: Acute (3) HTN (hypertension) Status: Acute - Assessment and Plan (Free Text) Assessment: 81 yo male with history of DM2, HTN and Gastritis admitted with sepsis in ICU secondary to Cholangitis. Open cholecystectomy was done with common bile duct exploration. T tube was left in place to drain. Patient did well post surgery. He was put on Meropenem, Flagyl and 1 dose of Gentamycin. Blood culture was positive for E coli. Antibiotics later were switched to Vanco, Rocephin and Flagyl. He was transferred to TCU for continuaton of IV antibiotics and PT. 1. Choledocholithiasis/Cholangitis with sepsis s/p open Cholecystectomy and CBD exploration LFTs and WBC normalized continue pain management PRN Dr. Carroll following case Tolerating diet. Blood c/s x 2 positive for E coli, repeat blood c/s was negative, wound c/s positive for Enterococcus had 7 day course of IV Meropenem and Flagyl today is last day of IV antibiotics on PO Flagyl and Ampicillin T-tube intact and draining 2.DM II uncontrolled BS relatively controlled Continue accuchek with insulin coverage Metformin 1000mg PO BID Glipizide SR 5mg PO at breakfast 3. Hypertension BP stable continue Coreg 4. DVT prophylaxis Lovenox
[2016-08-04] MEDS: Insulin Lispro (humaLOG) 100 Units/ml Inj SC SCH ×4 (06:51→21:50)
[2016-08-04] MEDS: GlipiZIDE 5 mg SR Tab PO SCH (08:47)
[2016-08-04] MEDS: Pantoprazole 40 mg EC Tab PO SCH (08:47)
[2016-08-04] MEDS: Enoxaparin 40 mg Syringe SC SCH (08:51)
[2016-08-05] MEDS: Insulin Lispro (humaLOG) 100 Units/ml Inj SC SCH ×2 (06:46→12:31)
[2016-08-05 08:10] VITALS: BP 130/72; PULSE 76; TEMP 96.3; O2SAT 100
[2016-08-05] MEDS: Enoxaparin 40 mg Syringe SC SCH (10:02)
[2016-08-05] MEDS: GlipiZIDE 5 mg SR Tab PO SCH (10:02)
[2016-08-05] MEDS: Pantoprazole 40 mg EC Tab PO SCH (10:03)
--- NOTE | 2016-08-05 11:15 | CP.PCM.DIS ---
Provider - Provider Date of Admission: 07/19/16 21:31 Attending physician: Phan Ortiz MD Primary care physician: Alejandro Joaquin MD Consults: Dr Carly Yun Time Spent in preparation of Discharge (in minutes): 35 Diagnosis - Discharge Diagnosis (1) Cholangitis due to bile duct calculus with obstruction Status: Acute Comment: continue PO Flagyl and Ampicillin. T-tube left intact and draining (2) DM2 (diabetes mellitus, type 2) Status: Acute Comment: BS relatively controlled. Metformin 1000mg PO BID. Glipizide SR 5mg PO at breakfast (3) HTN (hypertension) Status: Acute Comment: BP stable. continue Coreg Hospital Course - Lab Results Lab Results: Most Recent Lab Values WBC 4.8 K/uL (4.8-10.8) 08/02/16 06:59 RBC 3.34 Mil/uL (4.40-5.90) L 08/02/16 06:59 Hgb 10.2 g/dL (12.0-18.0) L 08/02/16 06:59 Hct 31.3 % (35.0-51.0) L 08/02/16 06:59 MCV 93.8 fl (80.0-94.0) 08/02/16 06:59 MCH 30.6 pg (27.0-31.0) 08/02/16 06:59 MCHC 32.6 g/dL (33.0-37.0) L 08/02/16 06:59 RDW 16.7 % (11.5-14.5) H 08/02/16 06:59 Plt Count 211 K/uL (130-400) 08/02/16 06:59 Sodium 137 mmol/l (132-148) 08/02/16 06:59 Potassium 4.0 MMOL/L (3.6-5.0) 08/02/16 06:59 Chloride 103 mmol/L (98-107) 08/02/16 06:59 Carbon Dioxide 23 mmol/L (22-30) 08/02/16 06:59 Anion Gap 15 (10-20) 08/02/16 06:59 BUN 19 mg/dl (9-20) 08/02/16 06:59 Creatinine 0.9 mg/dL (0.8-1.5) 08/02/16 06:59 Est GFR ( Amer) > 60 08/02/16 06:59 Est GFR (Non-Af Amer) > 60 08/02/16 06:59 POC Glucose (mg/dL) 277 mg/dL (65-110) H 08/05/16 11:04 Random Glucose 166 mg/dL (75-110) H 08/02/16 06:59 Calcium 8.4 mg/dL (8.4-10.2) 08/02/16 06:59 Total Bilirubin 0.7 mg/dl (0.2-1.3) 07/28/16 07:00 AST 42 U/L (17-59) 07/28/16 07:00 ALT 43 U/L (21-72) 07/28/16 07:00 Alkaline Phosphatase 227 U/L (38-126) H D 07/28/16 07:00 Total Protein 5.0 G/DL (6.3-8.2) L 07/28/16 07:00 Albumin 2.4 g/dL (3.5-5.0) L 07/28/16 07:00 Globulin 2.6 gm/dL (2.2-3.9) 07/28/16 07:00 Albumin/Globulin Ratio 0.9 (1.0-2.1) L 07/28/16 07:00 Random Vancomycin 7.7 ug/mL 07/26/16 17:51 - Hospital Course Hospital Course: 81 yo male with history of Anemia, DM2, Gastritis and Prostate Cancer (on remission) because of abdominal pain accompanied with vomiting, diarrhea, fever and chills. Patient was also hypotensive with leukocytosis, elevated LFTs and elevated Troponin. Patient was admitted to ICU with sepsis secondary to cholangitis. He was started on IV antibiotics and had open Cholecystectomy and CBD exploration with T tube left in place to drain the bile. Initial blood cultures were positive for E coli. He was put on Meropenem, Flagyl and Genta and then later on switched to Rocephin and Flagyl. Pt did well and improved and was transferred to TCU for continuation of IV antibiotics and therapy. Pt is now for discharge in stable condition with T tube in place and to continue PO Flagyl and Ampicillin for another week. Patient would be followed up by surgery as outpatient. Discharge Exam - Head Exam Head Exam: ATRAUMATIC - Eye Exam Eye Exam: absent: Scleral icterus - ENT Exam ENT Exam: Mucous Membranes Moist - Respiratory Exam Respiratory Exam: absent: Wheezes, Respiratory Distress - Cardiovascular Exam Cardiovascular Exam: REGULAR RHYTHM, +S1, +S2 - GI/Abdominal Exam GI & Abdominal Exam: Soft. absent: Tenderness Additional comments: t tube intact and in place and draining - Rectal Exam Rectal Exam: Deferred - Neurological Exam Neurological exam: Alert, Oriented x3 - Psychiatric Exam Psychiatric exam: Normal Affect - Skin Skin Exam: Dry, Intact Discharge Plan - Discharge Medications Prescriptions: Ampicillin 500 mg PO Q6 #28 cap Carvedilol [Coreg] 6.25 mg PO Q12 #28 tab Metronidazole [Flagyl] 500 mg PO Q8 #21 tablet GlipiZIDE SR [Glucotrol XL] 5 mg PO BRK #14 tab Pantoprazole [Protonix EC Tab] 40 mg PO DAILY #10 ect MetFORMIN [glucoPHAGE] 1,000 mg PO BID #28 tab - Follow Up Plan Condition: GOOD Disposition: HOME/ ROUTINE Instructions: Open Cholecystectomy (DC), Fall Prevention (DC) Additional Instructions: t tube instructions given to and family. to empty twice a day. notify MD if any s/s infection such as drainage, fever, redness, t tube drainage greater than 200cc Referrals: Alejandro Joaquin [Primary Care Provider] - Des Carroll MD [Staff Provider] -
== END 2016-08-05 12:45 | disposition home health service (06) | DRG 872 ==
LOC: H.TCU 21:31
PROVIDERS: ADMIT Internal Medicine; ATTEND Internal Medicine
PROC: F07Z9ZZ Gait Training/Functional Ambulation Treatment (ICD-10-PCS; principal; 2016-07-19)
PROC: F07L6ZZ Therapeutic Exercise Treatment of Musculoskeletal System - Lower Back / Lower Extremity (ICD-10-PCS; 2016-07-19)
DX: A41.51 Sepsis due to Escherichia coli [E. coli] (principal); F03.90 Unspecified dementia, unspecified severity, without behavioral disturbance, psychotic disturbance, mood disturbance, and anxiety; E11.65 Type 2 diabetes mellitus with hyperglycemia; K80.30 Calculus of bile duct with cholangitis, unspecified, without obstruction; R65.20 Severe sepsis without septic shock; I10 Essential (primary) hypertension; K29.70 Gastritis, unspecified, without bleeding; K57.90 Diverticulosis of intestine, part unspecified, without perforation or abscess without bleeding; Z85.46 Personal history of malignant neoplasm of prostate; I48.91 Unspecified atrial fibrillation

== ENCOUNTER 2016-09-01 16:03 | Observation (INO) | payer MEDICARE, MEDICAID ==
[2016-09-01 16:03] VITALS: BMI 35.6
--- NOTE | 2016-09-01 16:44 | ED PDOC ---
HPI: Abdomen Time Seen by Provider: 09/01/16 16:35 Chief Complaint (Nursing): Abdominal Pain Chief Complaint (Provider): ABDOMINAL PAIN History Per: Patient (81 Y/O MALE HERE FOR EVALUATION OF RUQ PAIN AFTER J TUBE WAS PULLED OUT 4 CM YESTERDAY. PATIENT IS STATUS POST CHOLECYSTECTOMY FOR CHOLEDECOLITHIASIS/CHOLANGITIS.) Past Medical History Reviewed: Historical Data, Nursing Documentation, Vital Signs Vital Signs: Last Vital Signs Temp 97.9 F 09/01/16 16:17 Pulse 86 09/01/16 16:17 Resp 20 09/01/16 16:17 BP 116/62 09/01/16 16:17 Pulse Ox 99 09/01/16 18:24 - Medical History PMH: Anemia, Dementia, Diabetes, Gastritis, HTN, Hypothyroidism Denies: Cardia Arrhythmia, Peripheral Edema, Chronic Kidney Disease - Surgical History Surgical History: Cholecystectomy Denies: Pacemaker - Family History Family History: States: No Known Family Hx - Home Medications Home Medications: Ambulatory Orders Medication Instructions Recorded Acetaminophen [Tylenol 325mg tab] 650 mg PO Q4 PRN #0 tab 07/19/16 Carvedilol [Coreg] 6.25 mg PO Q12 #28 tab 08/05/16 GlipiZIDE SR [Glucotrol XL] 5 mg PO BRK #14 tab 08/05/16 MetFORMIN [glucoPHAGE] 1,000 mg PO BID #28 tab 08/05/16 Pantoprazole [Protonix EC Tab] 40 mg PO DAILY #10 ect 08/05/16 - Allergies Allergies/Adverse Reactions: Allergies Allergy/AdvReac Type Severity Reaction Status Date / Time No Known Allergies Allergy Verified 09/01/16 16:10 Review of Systems ROS Statement: Except As Marked, All Systems Reviewed And Found Negative Physical Exam - Reviewed Nursing Documentation Reviewed: Yes Vital Signs Reviewed: Yes - Physical Exam Appears: Positive for: Well, Non-toxic, No Acute Distress Head Exam: Positive for: ATRAUMATIC, NORMAL INSPECTION, NORMOCEPHALIC Skin: Positive for: Normal Color, Warm, DRY Eye Exam: Positive for: EOMI, Normal appearance, PERRL ENT: Positive for: Normal ENT Inspection Neck: Positive for: Normal, Painless ROM Cardiovascular/Chest: Positive for: Regular Rate, Rhythm Respiratory: Positive for: CNT, Normal Breath Sounds Gastrointestinal/Abdominal: Positive for: Normal Exam, Bowel Sounds, Soft, Tenderness (MILD RUQ TENDERNESS; ) Back: Positive for: Normal Inspection Extremity: Positive for: Normal ROM Neurologic/Psych: Positive for: Alert, Oriented - Laboratory Results Result Diagrams: 09/01/16 17:25 09/01/16 17:25 - ECG O2 Sat by Pulse Oximetry: 99 - Progress ED Course And Treament: D/W INDEX CLERK. NOTES DRAIN IS DUE FOR REMOVAL. WILL COME TO ED TO EVALUATE PATIENT. PATIENT NOTES THAT HE HAS HAD MODERATE DRAINAGE FROM DRAIN. NOTES INCREASED WEAKNESS. BLOODWORK REVIEWED WITH HYPONATREMIA/RENAL INSUFFICIENCY NOTED. D/W DR. SILVERMAN. Disposition - Clinical Impression Clinical Impression: Hyponatremia, Renal insufficiency, Jejunostomy tube fell out - Patient ED Disposition Is Patient to be Admitted: Yes - Disposition Referrals: Alejandro Joaquin [Primary Care Provider] - Disposition Time: 18:24 Condition: FAIR - Pt Status Changed To: Hospital Disposition Of: Observation
[2016-09-01 17:47] LABS: BASO % 0.6 % (0.0-2.0); EOS # 0.1 K/uL (0.0-0.7); EOS % 1.3 % (0.0-4.0); HEMATOCRIT 38.8 % (35.0-51.0); LYMPH # 1.9 K/uL (1.0-4.3); LYMPH % 24.3 % (20.0-40.0); MEAN CELL VOLUME 94.6 fl (80.0-94.0); MEAN CORPUSCULAR HEMOGLOBIN 31.1 pg (27.0-31.0); MEAN CORPUSCULAR HGB CONC 32.9 g/dL (33.0-37.0); MEAN PLATELET VOLUME 11.2 fl (7.2-11.7); MONO # 0.9 K/uL (0.0-0.8); NEUT # 4.9 K/uL (1.8-7.0); NEUT % 62.8 % (50.0-75.0); RED CELL DISTRIBUTION WIDTH 15.2 % (11.5-14.5); WHITE BLOOD COUNT 7.8 K/uL (4.8-10.8)
[2016-09-01 17:53] LABS: PARTIAL THROMBOPLASTIN TIME 31.3 SECONDS (23.3-32.5)
[2016-09-01 18:01] LABS: CALCIUM 9.7 mg/dL (8.4-10.2); TOTAL PROTEIN 6.8 G/DL (6.3-8.2)
[2016-09-01 18:03] LABS: ALB/GLOB RATIO 1.1 (1.0-2.1)
[2016-09-01 18:04] LABS: POTASSIUM 5.4 MMOL/L (3.6-5.0)
[2016-09-01] MEDS ORDERED: Sodium Chloride 0.9% 1,000 ML IV STA (18:21)
--- NOTE | 2016-09-01 19:06 | CP.PCM.HP ---
History of Present Illness - History of Present Illness History of Present Illness: 81 yo male with history Anemia, DM2, Gastritis, Prostate Cancer recently discharged on 08/05/2016 post cholecystectomy with continuous drainage of bile via T tube because of Cholangitis came back because of pain on RUQ after the tube was accidentally pulled out. claimed patient's tube is still actively draining and caused pain when ambulating. Complained also of poor oral intake and general weakness. Denied fever or chills. Present on Admission - Present on Admission Any Indicators Present on Admission: No History of DVT/PE: No History of Uncontrolled Diabetes: No Urinary Catheter: No Decubitus Ulcer Present: No Review of Systems - Review of Systems All systems: reviewed and no additional remarkable complaints except (aside from those mentioned above, 12 point system review were negative by me) Past Patient History - Infectious Disease Hx of Infectious Diseases: None - Tetanus Immunizations Tetanus Immunization: Unknown - Past Medical History & Family History Past Medical History?: Yes - Past Social History Smoking Status: Never Smoked Chewing Tobacco Use: No Cigar Use: No Alcohol: None Drugs: Denies - CARDIAC Hx Cardia Arrhythmia: No Hx Hypertension: Yes Hx Pacemaker: No Hx Peripheral Edema: No - PULMONARY Hx Respiratory Disorders: No - NEUROLOGICAL Hx Dementia: Yes - HEENT Hx Deafness: (Hard of hearing) - RENAL Hx Chronic Kidney Disease: No - ENDOCRINE/METABOLIC Hx Hypothyroidism: Yes - HEMATOLOGICAL/ONCOLOGICAL Hx Anemia: Yes - INTEGUMENTARY Hx Dermatological Problems: No - MUSCULOSKELETAL/RHEUMATOLOGICAL Hx Falls: No - GASTROINTESTINAL Hx Gall Bladder Disease: Yes Hx Gastritis: Yes - GENITOURINARY/GYNECOLOGICAL Hx Genitourinary Disorders: No - PSYCHIATRIC Hx Substance Use: No - SURGICAL HISTORY Hx Cholecystectomy: Yes - ANESTHESIA Hx Anesthesia: Yes Hx Anesthesia Reactions: No Meds Allergies/Adverse Reactions: Allergies Allergy/AdvReac Type Severity Reaction Status Date / Time No Known Allergies Allergy Verified 09/01/16 16:10 Physical Exam - Constitutional Appears: No Acute Distress - Head Exam Head Exam: ATRAUMATIC - Eye Exam Eye Exam: absent: Scleral icterus - ENT Exam ENT Exam: Mucous Membranes Moist - Neck Exam Neck exam: Negative for: Meningismus - Respiratory Exam Respiratory Exam: absent: Rhonchi, Wheezes, Respiratory Distress - Cardiovascular Exam Cardiovascular Exam: REGULAR RHYTHM, +S1, +S2 - GI/Abdominal Exam GI & Abdominal Exam: Soft, Tenderness (mild to moderate tenderness on RUQ; T tube actively draining bile) - Rectal Exam Rectal Exam: Deferred - Back Exam Back exam: absent: tenderness - Neurological Exam Neurological exam: Alert, Oriented x3 - Psychiatric Exam Psychiatric exam: Normal Affect - Skin Skin Exam: Dry, Intact Results - Vital Signs Recent Vital Signs: Last Vital Signs Temp 97.9 F 09/01/16 16:17 Pulse 86 09/01/16 16:17 Resp 20 09/01/16 16:17 BP 116/62 09/01/16 16:17 Pulse Ox 99 09/01/16 18:32 - Labs Result Diagrams: 09/01/16 17:25 09/01/16 17:25 Labs: Laboratory Results - last 24 hr 09/01/16 09/01/16 09/01/16 17:25 17:25 17:25 WBC 7.8 D RBC 4.10 L Hgb 12.8 D Hct 38.8 MCV 94.6 H MCH 31.1 H MCHC 32.9 L RDW 15.2 H Plt Count 136 MPV 11.2 Neut % (Auto) 62.8 Lymph % (Auto) 24.3 [place] % (Auto) 11.0 H Eos % (Auto) 1.3 Baso % (Auto) 0.6 Neut # 4.9 Lymph # 1.9 [place] # 0.9 H Eos # 0.1 Baso # 0.0 PT 13.1 H INR 1.26 H APTT 31.3 Sodium 127 L Potassium 5.4 H Chloride 99 Carbon Dioxide 17 L Anion Gap 16 BUN 56 H Creatinine 2.0 H Est GFR ( Amer) 39 Est GFR (Non-Af Amer) 32 Random Glucose 237 H Calcium 9.7 Total Bilirubin 2.0 H AST 65 H D ALT 70 Alkaline Phosphatase 187 H Total Protein 6.8 Albumin 3.5 D Globulin 3.3 Albumin/Globulin Ratio 1.1 Assessment & Plan (1) Hyponatremia Status: Acute Comment: place on observation in med/surg. IV hydration with NSS 100cc/hr. BMP in am (2) Azotemia Status: Acute Comment: probably secondary to dehydration from poor intake. continue hydration. DC Metformin. renal consult with Dr Ruano (3) Jejunostomy tube fell out Status: Acute Comment: surgical consult with Dr Carroll (4) DM2 (diabetes mellitus, type 2) Status: Chronic Comment: diabetic diet. accuchek ACHS. Glipizide SR 5mg PO daily. DC Metformin
[2016-09-01] MEDS ORDERED: Lidocaine 2% Inj (20ml) SC ONE (19:09)
[2016-09-01] MEDS ORDERED: Lidocaine 2% Inj (20ml) ONE (19:13)
[2016-09-01] MEDS ORDERED: Sod Polystyrene Sulf 15 gm/60 ml Oral Susp PO ONE (20:30)
[2016-09-01] MEDS ORDERED: Sod Polystyrene Sulf 15 gm/60 ml Oral Susp ONE (21:09)
--- NOTE | 2016-09-01 21:47 | CP.PCM.CON ---
<Bianca Baron - Last Filed: 09/01/16 22:04> History of Present Illness - History of Present Illness History of Present Illness: GENERAL SURGERY CONSULT NOTE FOR DR. CARROLL 81yo M with PMHx of HTN, DM, prostate cancer, choledocholithiasis s/p open cholecystectomy with common bile duct exploration and placement of T tube on 07/15 , POD#48 who presented to the ED due to T tube partially coming out and weakness. The patient states that yesterday, the T tube came out about 4 cm from where it had been. The tube has continued to drain bile. His notes that usually the output is around 250-290cc/24 hours but that the past week, it has increased to about 400cc/24 hours. The patient reports pain at the tube insertion site. The patient and his also note that he has felt weak and easily tires since his surgery. He has also had a poor appetite and has not been eating much at home. He denies nausea or vomiting. PMHx: anemia, dementia, DM, gastritis, HTN, prostate cancer with seeding, choledocholithiasis Surgeries: open cholecystectomy with common bile duct exploration with T tube placement on 07/15/16 Allergies: none Social history: occasional alcohol, no smoking Review of Systems - Review of Systems All systems: reviewed and no additional remarkable complaints except (as per HPI ) Past Patient History - Infectious Disease Hx of Infectious Diseases: None - Tetanus Immunizations Tetanus Immunization: Unknown - Past Medical History & Family History Past Medical History?: Yes - Past Social History Smoking Status: Never Smoked Chewing Tobacco Use: No Cigar Use: No Alcohol: None Drugs: Denies - CARDIAC Hx Cardia Arrhythmia: No Hx Hypertension: Yes Hx Pacemaker: No Hx Peripheral Edema: No - PULMONARY Hx Respiratory Disorders: No - NEUROLOGICAL Hx Dementia: Yes - HEENT Hx Deafness: (Hard of hearing) - RENAL Hx Chronic Kidney Disease: No - ENDOCRINE/METABOLIC Hx Hypothyroidism: Yes - HEMATOLOGICAL/ONCOLOGICAL Hx Anemia: Yes - INTEGUMENTARY Hx Dermatological Problems: No - MUSCULOSKELETAL/RHEUMATOLOGICAL Hx Falls: No - GASTROINTESTINAL Hx Gall Bladder Disease: Yes Hx Gastritis: Yes - GENITOURINARY/GYNECOLOGICAL Hx Genitourinary Disorders: No - PSYCHIATRIC Hx Substance Use: No - SURGICAL HISTORY Hx Cholecystectomy: Yes - ANESTHESIA Hx Anesthesia: Yes Hx Anesthesia Reactions: No Meds Allergies/Adverse Reactions: Allergies Allergy/AdvReac Type Severity Reaction Status Date / Time No Known Allergies Allergy Verified 09/01/16 16:10 - Medications Medications: Current Medications Carvedilol (Coreg) 6.25 mg PO Q12 [facility] Heparin Sodium (Porcine) (Heparin) 5,000 units SC Q12 [facility] PRN Reason: Protocol Sodium Chloride (Sodium Chloride 0.9%) 1,000 mls @ 125 mls/hr IV .Q8H STA Stop: 09/02/16 02:20 Last Admin: 09/01/16 21:20 Dose: 125 mls/hr Pantoprazole Sodium (Protonix Ec Tab) 40 mg PO DAILY [facility] Physical Exam - Constitutional Appears: Non-toxic, No Acute Distress - Head Exam Head Exam: ATRAUMATIC, NORMAL INSPECTION - Eye Exam Eye Exam: EOMI, Normal appearance - Respiratory Exam Respiratory Exam: NORMAL BREATHING PATTERN. absent: Respiratory Distress - Cardiovascular Exam Cardiovascular Exam: +S1, +S2 - GI/Abdominal Exam GI & Abdominal Exam: Soft, Tenderness (around drain site). absent: Distended, Firm, Guarding, Rebound, Rigid Additional comments: small area of erythema and skin breakdown where previous suture held the drain in place. Suture has now been pulled out of the skin. T tube in place draining bile - Neurological Exam Neurological exam: Alert, CN II-XII Intact, Oriented x3 - Psychiatric Exam Psychiatric exam: Normal Affect, Normal Mood - Skin Skin Exam: Dry, Warm Results - Vital Signs Recent Vital Signs: Last Vital Signs Temp 97.9 F 09/01/16 16:17 Pulse 86 09/01/16 16:17 Resp 20 09/01/16 16:17 BP 116/62 09/01/16 16:17 Pulse Ox 99 09/01/16 18:32 - Labs Result Diagrams: 09/01/16 17:25 09/01/16 17:25 Assessment & Plan - Assessment and Plan (Free Text) Assessment: 81yo M with PMHx of HTN, DM, prostate cancer, choledocholithiasis s/p open cholecystectomy with common bile duct exploration and placement of T tube on 07/15 , POD#48 - Afebrile, VSS, no leukocytosis - Hyponatremia Na 127 - Elevated BUN/Cr, 56/2.0 (higher than on previous admission) - Patient was admitted for the above - At bedside, 2 sutures were placed using Lidocaine to prevent further dislodgment of T tube - Will monitor T tube output - Likely will remove T tube soon - Discussed plan with Dr. Carly Baron PGY-2 <Des Carroll - Last Filed: 09/03/16 20:03> Results - Vital Signs Recent Vital Signs: Last Vital Signs Temp 97.8 F 09/02/16 15:42 Pulse 94 H 09/02/16 15:42 Resp 18 09/02/16 15:42 BP 112/70 09/02/16 15:42 Pulse Ox 98 09/02/16 15:42 - Labs Result Diagrams: 09/02/16 06:00 09/02/16 06:00 Labs: Laboratory Results - last 24 hr 09/02/16 10:59 POC Glucose (mg/dL) 287 H Attending/Attestation - Attestation I have personally seen and examined this patient.: Yes I have fully participated in the care of the patient.: Yes I have reviewed all pertinent clinical information: Yes Notes (Text): 09/03/16 20:02 Pt was seen and examined at bedside on 09/02/16 Agree with above note and assessment Pt with T tube s/p CBC exploration Clam T tube LFTs as out pt F.U as out pt Plan d.w pt in detail.
[2016-09-01] MEDS ORDERED: Oxycodone/Acetaminophen 5/325 mg Tab PO PRN (22:14)
[2016-09-02 07:47] LABS: BASO % 0.3 % (0.0-2.0); EOS # 0.1 K/uL (0.0-0.7); EOS % 1.2 % (0.0-4.0); HEMATOCRIT 37.7 % (35.0-51.0); LYMPH # 1.9 K/uL (1.0-4.3); LYMPH % 25.2 % (20.0-40.0); MEAN CELL VOLUME 92.9 fl (80.0-94.0); MEAN CORPUSCULAR HEMOGLOBIN 31.4 pg (27.0-31.0); MEAN CORPUSCULAR HGB CONC 33.8 g/dL (33.0-37.0); MEAN PLATELET VOLUME 11.5 fl (7.2-11.7); MONO # 0.9 K/uL (0.0-0.8); MONO % 11.8 % (0.0-10.0); NEUT # 4.7 K/uL (1.8-7.0); NEUT % 61.5 % (50.0-75.0); NRBC % 0.1 % (0.0-0.0); WHITE BLOOD COUNT 7.6 K/uL (4.8-10.8)
--- NOTE | 2016-09-02 07:58 | CARD ---
APPROVED REPORT EKG Measurement Heart [id number] AR [id number] [id number] <Conclusion> Sinus rhythm with 1st degree AV block Left axis deviation Low voltage QRS Inferior infarct, age undetermined Cannot rule out Anterior infarct, age undetermined Abnormal ECG
[2016-09-02 08:03] VITALS: O2SAT 98
[2016-09-02 08:13] LABS: CALCIUM 9.5 mg/dL (8.4-10.2); POTASSIUM 4.6 MMOL/L (3.6-5.0)
[2016-09-02] MEDS ORDERED: Pantoprazole 40 mg EC Tab PO SCH (09:00)
[2016-09-02] MEDS ORDERED: Sodium Chloride 0.9% 1,000 ML IV SCH (10:00)
[2016-09-02 10:07] LABS: BILIRUBIN,TOTAL 2.1 mg/dl (0.2-1.3); TOTAL PROTEIN 6.5 G/DL (6.3-8.2)
--- NOTE | 2016-09-02 12:15 | CP.PCM.DIS ---
Provider - Provider Date of Admission: 09/01/16 18:32 Attending physician: Matt Vaughn MD Primary care physician: Matt Vaughn MD Consults: Surgery consult Time Spent in preparation of Discharge (in minutes): 20 Hospital Course - Lab Results Lab Results: Most Recent Lab Values WBC 7.6 K/uL (4.8-10.8) 09/02/16 06:00 RBC 4.06 Mil/uL (4.40-5.90) L 09/02/16 06:00 Hgb 12.8 g/dL (12.0-18.0) 09/02/16 06:00 Hct 37.7 % (35.0-51.0) 09/02/16 06:00 MCV 92.9 fl (80.0-94.0) 09/02/16 06:00 MCH 31.4 pg (27.0-31.0) H 09/02/16 06:00 MCHC 33.8 g/dL (33.0-37.0) 09/02/16 06:00 RDW 15.0 % (11.5-14.5) H 09/02/16 06:00 Plt Count 139 K/uL (130-400) 09/02/16 06:00 MPV 11.5 fl (7.2-11.7) 09/02/16 06:00 Neut % (Auto) 61.5 % (50.0-75.0) 09/02/16 06:00 Lymph % (Auto) 25.2 % (20.0-40.0) 09/02/16 06:00 [place] % (Auto) 11.8 % (0.0-10.0) H 09/02/16 06:00 Eos % (Auto) 1.2 % (0.0-4.0) 09/02/16 06:00 Baso % (Auto) 0.3 % (0.0-2.0) 09/02/16 06:00 Neut # 4.7 K/uL (1.8-7.0) 09/02/16 06:00 Lymph # 1.9 K/uL (1.0-4.3) 09/02/16 06:00 [place] # 0.9 K/uL (0.0-0.8) H 09/02/16 06:00 Eos # 0.1 K/uL (0.0-0.7) 09/02/16 06:00 Baso # 0.0 K/uL (0.0-0.2) 09/02/16 06:00 PT 13.1 SECONDS (9.6-11.2) H 09/01/16 17:25 INR 1.26 (0.92-1.08) H 09/01/16 17:25 APTT 31.3 SECONDS (23.3-32.5) 09/01/16 17:25 Sodium 135 mmol/l (132-148) 09/02/16 06:00 Potassium 4.6 MMOL/L (3.6-5.0) 09/02/16 06:00 Chloride 106 mmol/L (98-107) 09/02/16 06:00 Carbon Dioxide 16 mmol/L (22-30) L 09/02/16 06:00 Anion Gap 18 (10-20) 09/02/16 06:00 BUN 45 mg/dl (9-20) H 09/02/16 06:00 Creatinine 1.6 mg/dL (0.8-1.5) H 09/02/16 06:00 Est GFR ( Amer) 50 09/02/16 06:00 Est GFR (Non-Af Amer) 41 09/02/16 06:00 POC Glucose (mg/dL) 184 mg/dL (65-110) H 09/02/16 05:52 Random Glucose 181 mg/dL (75-110) H 09/02/16 06:00 Calcium 9.5 mg/dL (8.4-10.2) 09/02/16 06:00 Total Bilirubin 2.1 mg/dl (0.2-1.3) H 09/02/16 09:39 Direct Bilirubin 1.5 mg/ml (0.0-0.4) H 09/02/16 09:39 AST 62 U/L (17-59) H 09/02/16 09:39 ALT 70 U/L (21-72) 09/02/16 09:39 Alkaline Phosphatase 173 U/L (38-126) H 09/02/16 09:39 Total Protein 6.5 G/DL (6.3-8.2) 09/02/16 09:39 Albumin 3.3 g/dL (3.5-5.0) L 09/02/16 09:39 Globulin 3.2 gm/dL (2.2-3.9) 09/02/16 09:39 Albumin/Globulin Ratio 1.0 (1.0-2.1) 09/02/16 09:39 - Hospital Course Hospital Course: 81 yo male with history Anemia, DM2, Gastritis, Prostate Cancer recently discharged on 08/05/2016 post cholecystectomy with continuous drainage of bile via T tube because of Cholangitis came back because of pain on RUQ after the tube was accidentally pulled out. claimed patient's tube is still actively draining and caused pain when ambulating. Complained also of poor oral intake and general weakness. Denied fever or chills.In ER laboratory work up showed hyponatremia and acute renal failure with BUn/Cr 56/2 . Surgery was cosnulted. Patient placed under observation for hyponatremia, dehydration , prerenal ANDERSON and dislodgment of T-tube. He was placed under observation , started on IVF with improvement of hyponatremia and renal failure. Surgery reinserted T-tube to RUQ and cleared patient to be discharged after clamping T-tube. Patient to follow upw sandeep Carroll at his office as scheduled on . will discharge patient home (1) Hyponatremia Mosty likely secondary to poor PO intake and volume depletion Improved after IVF given (2) Acute kidney injury with Azotemia probably secondary to dehydration from poor intake. improved with hydration D/c metformin D/c Lisinopril (3) Jejunostomy tube fell out re inserted by surgery. Will clamp tube and follow up with surgery in 5 days (4) DM2 (diabetes mellitus, type 2) d/c Metformin due to renal failure Continue Amaryl, Actos 5. Hypertension D/c lisinoprl due to renal failure Increase Coreg griffin to 6.25 mg po BID 6. Dementia on namenda megace for poor po intake Discharge Exam - Head Exam Head Exam: ATRAUMATIC, NORMAL INSPECTION - Eye Exam Eye Exam: Normal appearance, PERRL - ENT Exam ENT Exam: Mucous Membranes Moist, Normal Exam - Neck Exam Neck exam: Normal Inspection - Respiratory Exam Respiratory Exam: Clear to PA & Lateral, NORMAL BREATHING PATTERN. absent: Rhonchi, Wheezes - Cardiovascular Exam Cardiovascular Exam: REGULAR RHYTHM, +S1, +S2. absent: JVD - GI/Abdominal Exam GI & Abdominal Exam: Normal Bowel Sounds, Soft. absent: Distended, Guarding, Rebound Additional comments: RUQ J-tube in place - Rectal Exam Rectal Exam: Deferred - Extremities Exam Extremities exam: normal capillary refill, normal inspection - Neurological Exam Neurological exam: Alert, CN II-XII Intact - Psychiatric Exam Psychiatric exam: Normal Affect - Skin Skin Exam: Dry, Pallor, Warm Discharge Plan - Discharge Medications Prescriptions: Carvedilol [Coreg] 6.25 mg PO Q12 #60 tab - Follow Up Plan Condition: STABLE Disposition: HOME/ ROUTINE Patient education suggested?: Yes Referrals: Alejandro Joaquin [Family Provider] - Amrit Carroll MD [Staff Provider] -
--- NOTE | 2016-09-02 12:39 | CP.PCM.PN ---
Addendum entered and electronically signed by Diane Paris DO 09/02/16 14:28: Will Clamp T Tube and Pt may be D/Bharat home. Will repeat LFTs as outpatient and F/U in office w/ Dr. Carroll. Original Note: <Diane Paris - Last Filed: 09/02/16 12:37> Subjective - Date & Time of Evaluation Date of Evaluation: 09/02/16 Time of Evaluation: 12:37 - Subjective Subjective: General surgery - Dr. Carroll Pt S&E. NAEO. Pt had 200cc bilious drainage from T Tube past 12hours. He currently complains of mild R flank pain, but states this discomfort is not new for him since the surgery. He is tolerating regular diet and OOB in the chair. He denies any N/V, F/C, SOB/Cp. Objective - Vital Signs/Intake and Output Vital Signs (last 24 hours): Temp Pulse Resp BP Pulse Ox 98.7 F 102 H 20 130/78 98 09/02/16 08:02 09/02/16 08:36 09/02/16 08:02 09/02/16 08:36 09/02/16 08:02 - Medications Medications: Current Medications Carvedilol (Coreg) 6.25 mg PO Q12 [facility] Last Admin: 09/02/16 08:36 Dose: 6.25 mg Heparin Sodium (Porcine) (Heparin) 5,000 units SC Q12 JENNIFER PRN Reason: Protocol Last Admin: 09/02/16 08:37 Dose: 5,000 units Sodium Chloride (Sodium Chloride 0.9%) 1,000 mls @ 100 mls/hr IV .Q10H [facility] Stop: 09/03/16 09:53 Last Admin: 09/02/16 10:02 Dose: 100 mls/hr Oxycodone/Acetaminophen (Percocet 5/325 Mg Tab) 1 tab PO Q6 PRN PRN Reason: Pain, severe (8-10) Stop: 09/04/16 22:15 Pantoprazole Sodium (Protonix Ec Tab) 40 mg PO DAILY [facility] Last Admin: 09/02/16 08:37 Dose: 40 mg - Labs Labs: 09/02/16 06:00 09/02/16 06:00 PT 13.1 SECONDS (9.6-11.2) H 09/01/16 17:25 INR 1.26 (0.92-1.08) H 09/01/16 17:25 APTT 31.3 SECONDS (23.3-32.5) 09/01/16 17:25 - Constitutional Appears: No Acute Distress - Head Exam Head Exam: ATRAUMATIC, NORMAL INSPECTION, NORMOCEPHALIC - Eye Exam Eye Exam: absent: Scleral icterus - Respiratory Exam Respiratory Exam: NORMAL BREATHING PATTERN. absent: Respiratory Distress - GI/Abdominal Exam GI & Abdominal Exam: Soft, Tenderness (R flank ). absent: Distended, Guarding, Rigid, Rebound Additional comments: T tube drain in place w/ light orange/brown bilious drainage, 200cc/12hrs - Neurological Exam Neurological Exam: Alert, Oriented x3 - Psychiatric Exam Psychiatric exam: Normal Affect, Normal Mood - Skin Skin Exam: Dry, Intact Assessment and Plan - Assessment and Plan (Free Text) Assessment: 81M w/ Hx of HTN, DM, prostate ca, choledocholithiasis s/p open cholecystectomy w/ CBD exploration and T tube 07/15, admitted for ANDERSON -Electrolytes/Cr improving -T tube in place w/ appropriate drainage -Will continue to monitor, likely removal soon Dw Dr Carly Paris, PGY2 <Des Carroll - Last Filed: 09/03/16 19:55> Objective - Vital Signs/Intake and Output Vital Signs (last 24 hours): Temp Pulse Resp BP Pulse Ox 97.8 F 94 H 18 112/70 98 09/02/16 15:42 09/02/16 15:42 09/02/16 15:42 09/02/16 15:42 09/02/16 15:42 - Labs Labs: 09/02/16 06:00 09/02/16 06:00 PT 13.1 SECONDS (9.6-11.2) H 09/01/16 17:25 INR 1.26 (0.92-1.08) H 09/01/16 17:25 APTT 31.3 SECONDS (23.3-32.5) 09/01/16 17:25 Attending/Attestation - Attestation I have personally seen and examined this patient.: Yes I have fully participated in the care of the patient.: Yes I have reviewed all pertinent clinical information, including history, physical exam and plan: Yes Notes (Text): 09/03/16 19:54 Pt was seen and examined at bedside on 09/02/16 Agree with above note and assessment Pt with T tube, Pt can be DC home Plan d.w pt and Hospitalist Amanda as out pt.
[2016-09-02 15:43] VITALS: BP 112/70; PULSE 94; RESP 18; TEMP 97.8
== END 2016-09-02 17:50 | disposition home or self-care (01) ==
LOC: H.ER 16:03 → H.ERHOLD 18:32 → H.MEDSURG1 19:38 → H.ERHOLD 20:23 → H.MEDSURG1 21:50
DX: Z45.89 Encounter for adjustment and management of other implanted devices (principal); E03.9 Hypothyroidism, unspecified; E11.9 Type 2 diabetes mellitus without complications; E86.0 Dehydration; E87.1 Hypo-osmolality and hyponatremia; F03.90 Unspecified dementia, unspecified severity, without behavioral disturbance, psychotic disturbance, mood disturbance, and anxiety; I10 Essential (primary) hypertension; N17.9 Acute kidney failure, unspecified; Z85.46 Personal history of malignant neoplasm of prostate; K29.70 Gastritis, unspecified, without bleeding; D64.9 Anemia, unspecified
CPT/HCPCS: 36415; 80048; 80053; 80076; 82948; 85025; 85610; 85730; 93005; 96372; 99282; G0378; J1644; J7040

== ENCOUNTER 2016-10-04 18:40 | Observation (INO) | payer MEDICARE, MEDICAID ==
[2016-10-04 18:41] VITALS: BMI 29.2
--- NOTE | 2016-10-04 19:44 | ED PDOC ---
HPI: Abdomen Time Seen by Provider: 10/04/16 19:12 Chief Complaint (Nursing): Male Genitourinary Chief Complaint (Provider): RUQ pain, t-tube no longer in place History Per: Patient History/Exam Limitations: no limitations Onset/Duration Of Symptoms: Hrs (T-tube out of place ), Days (RUQ pain ) Additional Complaint(s): In july patient diagnosed with cholangitis and cholelithiasis. Pt was septic and in the ICU at that time. Pt had surgery by Dr. Carroll and a T-tube was placed. states she empties it daily and today she noticed it had fallen out. Young/brown colored drainage in bag. No fever/chills. Past Medical History Reviewed: Historical Data, Nursing Documentation, Vital Signs Vital Signs: Last Vital Signs Temp 98.1 F 10/04/16 18:52 Pulse 66 10/04/16 18:52 Resp 18 10/04/16 18:52 BP 115/60 10/04/16 18:52 Pulse Ox 99 10/04/16 18:52 - Medical History PMH: Anemia, Arthritis, Dementia, Diabetes, Gastritis, Gall Bladder Disease, HTN , Hypercholesterolemia, Hypothyroidism - Surgical History Surgical History: Cholecystectomy - Family History Family History: States: No Known Family Hx - Living Arrangements Living Arrangements: With Family - Social History Current smoker - smoking cessation education provided: No Alcohol: None Drugs: Denies - Home Medications Home Medications: Ambulatory Orders Medication Instructions Recorded Acetaminophen [Tylenol 325mg tab] 650 mg PO Q4 PRN #0 tab 07/19/16 Pantoprazole [Protonix EC Tab] 40 mg PO DAILY #10 ect 08/05/16 Cholecalciferol (Vitamin D3) 5,000 unit PO DAILY 09/01/16 [Vitamin D3] Donepezil HCl [Aricept] 10 mg PO DAILY 09/01/16 Glimepiride [amaRYL] 4 mg PO BID 09/01/16 Megestrol [Megace] 20 mg PO DAILY 09/01/16 Pioglitazone HCl [Actos] 15 mg PO BID PRN 09/01/16 Temazepam [Restoril] 30 mg PO HS 09/01/16 Carvedilol [Coreg] 6.25 mg PO Q12 #60 tab 09/02/16 - Allergies Allergies/Adverse Reactions: Allergies Allergy/AdvReac Type Severity Reaction Status Date / Time No Known Allergies Allergy Verified 09/01/16 16:10 Review of Systems ROS Statement: Except As Marked, All Systems Reviewed And Found Negative Gastrointestinal: Positive for: Abdominal Pain, Other Physical Exam - Reviewed Nursing Documentation Reviewed: Yes Vital Signs Reviewed: Yes - Physical Exam Appears: Positive for: Well, Non-toxic, No Acute Distress Head Exam: Positive for: ATRAUMATIC, NORMAL INSPECTION, NORMOCEPHALIC Skin: Positive for: Normal Color, Warm, DRY Eye Exam: Positive for: Normal appearance ENT: Positive for: Normal ENT Inspection Neck: Positive for: Normal, Painless ROM Cardiovascular/Chest: Positive for: Regular Rate, Rhythm Respiratory: Positive for: CNT, Normal Breath Sounds Gastrointestinal/Abdominal: Positive for: Bowel Sounds, Soft, Tenderness (RUQ tenderness ). Negative for: Normal Exam Back: Positive for: Normal Inspection Extremity: Positive for: Normal ROM Neurologic/Psych: Positive for: Alert, Oriented - ECG O2 Sat by Pulse Oximetry: 99 Pulse Ox Interpretation: Normal Medical Decision Making Medical Decision Making: Labs, CXR and EKG ordered. Called placed to outside residential sales professional. Endorsed to MINA Feng at 1999 Disposition - Clinical Impression Clinical Impression: T-tube migration - Patient ED Disposition Is Patient to be Admitted: Transfer of Care - Disposition Disposition: Transfer of Care Disposition Time: 19:47 Condition: STABLE
--- NOTE | 2016-10-04 21:12 | ED PDOC ---
- Laboratory Results Result Diagrams: 10/05/16 06:40 10/05/16 06:40 - ECG O2 Sat by Pulse Oximetry: 99 - Progress ED Course And Treament: Case endorsed to job specification writer from [facility] ENRIQUE[facility] pending assistant professor surgical technology call-back Spoke with Dr. Baron, who states drain can be left out indefinitely as per Dr. Carroll. Patient/family educated on plan; is concerned because she states area still draining. states she empties approx 400cc drainage from bag daily. Concerns relayed to Dr. Baron, requesting possible ED evall; states she will relay message to Dr. Carroll. Dr. Gallegos spoke with Dr. Baron regarding case, who also requested bedside eval. Patient family refusing to take patient home due to concerns for possible continued drainage post ttube removal. Case discussed with Dr. Gallegos, will place in observation for surgical consult in am. Dr. Baron aware. Case discussed with Dr. Ortiz, Hospitalist on-call, for placement in observation status. Disposition - Clinical Impression Clinical Impression: T-tube migration - POA Present On Arrival: Poor Glycemic Control - Disposition Disposition: Hospitalized as Observation Patient Disposition Time: 22:20 Condition: FAIR
[2016-10-04] MEDS ORDERED: Sodium Chloride 0.9% 250 ML IV STA (22:31)
[2016-10-04 23:53] LABS: BASO # 0.1 K/uL (0.0-0.2); BASO % 0.8 % (0.0-2.0); EOS # 0.2 K/uL (0.0-0.7); HEMATOCRIT 34.1 % (35.0-51.0); LYMPH # 2.4 K/uL (1.0-4.3); LYMPH % 27.9 % (20.0-40.0); MEAN CELL VOLUME 94.7 fl (80.0-94.0); MEAN CORPUSCULAR HEMOGLOBIN 31.1 pg (27.0-31.0); MEAN CORPUSCULAR HGB CONC 32.9 g/dL (33.0-37.0); MEAN PLATELET VOLUME 10.8 fl (7.2-11.7); MONO # 0.8 K/uL (0.0-0.8); MONO % 8.8 % (0.0-10.0); NEUT # 5.3 K/uL (1.8-7.0); NEUT % 60.5 % (50.0-75.0); RED CELL DISTRIBUTION WIDTH 13.9 % (11.5-14.5); WHITE BLOOD COUNT 8.8 K/uL (4.8-10.8)
[2016-10-04 23:58] LABS: VENOUS BLOOD GAS BASE EXCESS -1.5 mmol/L (0.0-2.0); VENOUS BLOOD GAS MODE ROOM AIR; VENOUS BLOOD GAS PCO2 37 mmHg (40-60)
[2016-10-05 00:16] LABS: ALB/GLOB RATIO 1.2 (1.0-2.1); CALCIUM 9.1 mg/dL (8.4-10.2); POTASSIUM 4.1 MMOL/L (3.6-5.0); TOTAL PROTEIN 6.5 G/DL (6.3-8.2)
--- NOTE | 2016-10-05 00:22 | CP.PCM.HP ---
History of Present Illness - History of Present Illness History of Present Illness: CC: T tube has fallen out HPI: This is an 81 y/o male with MHx sig for HTN, HLD, Hypothyroid, and dementia among other conditions who was diagnosed with cholecystitis in August 2016. He ended up develping cholangitis as well and had a complicated course including an ICU stay. Had cholecystectomy and then had a T tube placed. noted today that T tube had fallen partially out. She noted that tube had still been draining orange/brown fluid up until it fell out. She brought him in mainly for replacement of the tube. Patient without f/c/n/v/d or any significant pain at this time. ROS: limited given patient is very hard of hearing MHx: Dementia, gastritis, HTN, HLD, hypothyroid SHx: Cholecystectomy Allergies: NKDA Family Hx: Patient cannot provide at this time Social Hx: Lives with family, no EtOH, not tobacco Surrogate Dec Mkr: Pending Present on Admission - Present on Admission Any Indicators Present on Admission: No Past Patient History - Infectious Disease Hx of Infectious Diseases: None - Tetanus Immunizations Tetanus Immunization: Unknown - Past Medical History & Family History Past Medical History?: Yes - Past Social History Alcohol: None Drugs: Denies - CARDIAC Hx Hypercholesterolemia: Yes Hx Hypertension: Yes - NEUROLOGICAL Hx Dementia: Yes - HEENT Hx HEENT Problems: Yes Hx Deafness: (Hard of hearing) Other/Comment: Hard of hearing, bilateral ears - ENDOCRINE/METABOLIC Hx Hypothyroidism: Yes - HEMATOLOGICAL/ONCOLOGICAL Hx Anemia: Yes - MUSCULOSKELETAL/RHEUMATOLOGICAL Hx Arthritis: Yes - GASTROINTESTINAL Hx Gall Bladder Disease: Yes Hx Gastritis: Yes - GENITOURINARY/GYNECOLOGICAL Hx Genitourinary Disorders: Yes Hx Prostate Problems: Yes - PSYCHIATRIC Hx Psychophysiologic Disorder: No Hx Emotional Abuse: No - SURGICAL HISTORY Hx Cholecystectomy: Yes - ANESTHESIA Hx Anesthesia: Yes Hx Anesthesia Reactions: No Hx Malignant Hyperthermia: No Meds Allergies/Adverse Reactions: Allergies Allergy/AdvReac Type Severity Reaction Status Date / Time No Known Allergies Allergy Verified 09/01/16 16:10 Physical Exam - Constitutional Appears: No Acute Distress - Head Exam Head Exam: ATRAUMATIC, NORMOCEPHALIC - Eye Exam Eye Exam: EOMI, PERRL - ENT Exam ENT Exam: Mucous Membranes Moist - Neck Exam Neck exam: Positive for: Full Rom - Respiratory Exam Respiratory Exam: Clear to Auscultation Bilateral, NORMAL BREATHING PATTERN - Cardiovascular Exam Cardiovascular Exam: REGULAR RHYTHM, +S1, +S2 - GI/Abdominal Exam GI & Abdominal Exam: Normal Bowel Sounds, Soft Additional comments: Nhi scar noted on R abd; T tube appears out of position - Extremities Exam Extremities exam: Positive for: full ROM, normal inspection - Neurological Exam Neurological exam: Alert, CN II-XII Intact, Oriented x3 - Psychiatric Exam Psychiatric exam: Normal Affect, Normal Mood - Skin Skin Exam: Dry, Warm Results - Vital Signs Recent Vital Signs: Last Vital Signs Temp 98.1 F 10/04/16 18:52 Pulse 66 10/04/16 18:52 Resp 18 10/04/16 18:52 BP 115/60 10/04/16 18:52 Pulse Ox 99 10/04/16 21:12 - Labs Result Diagrams: 10/04/16 23:48 10/04/16 23:48 Labs: Laboratory Results - last 24 hr 10/04/16 10/04/16 23:48 23:50 WBC 8.8 RBC 3.60 L Hgb 11.2 L Hct 34.1 L MCV 94.7 H MCH 31.1 H MCHC 32.9 L RDW 13.9 Plt Count 130 MPV 10.8 Neut % (Auto) 60.5 Lymph % (Auto) 27.9 Kingfisher % (Auto) 8.8 Eos % (Auto) 2.0 Baso % (Auto) 0.8 Neut # 5.3 Lymph # 2.4 King[place]isher # 0.8 Eos # 0.2 Baso # 0.1 pO2 18 L VBG pH 7.40 VBG pCO2 37 L VBG HCO3 21.8 VBG Total CO2 24.0 VBG O2 Sat (Calc) 17.7 L VBG Base Excess -1.5 L VBG Potassium 4.3 Sodium 136.0 Chloride 106.0 Glucose 199 H Lactate 1.4 FiO2 21.0 Venous Blood Potassium 4.3 Assessment & Plan (1) T-tube migration Assessment and Plan: 81 y/o male with multiple conditions mainly being admitted for surgical assessment in AM due to T tube migration. Patient also with ANDERSON it appears. 1) T tube migration -Will keep patient NPO in case of procedure -Surgical consult entered for AM 2) ANDERSON -- possibly volume depletion -Will give IVF o/n -Chk UA -Chk BMP in AM, if Cr not improved, further workup 3) DM2 -- SSI only since NPO 4) DVT PPx -- SCDs only Status: Acute (2) Renal insufficiency Status: Acute (3) DM2 (diabetes mellitus, type 2) Status: Chronic
[2016-10-05 00:27] LABS: TROPONIN I 0.015 ng/mL (0.00-0.120)
[2016-10-05] MEDS: Sodium Chloride 0.9% 1,000 ML IV SCH ×2 (01:16→12:17)
[2016-10-05 01:49] LABS: RBC URINE 8 /hpf (0-3); URINE BACTERIA OCC (<OCC); URINE BILIRUBIN NEGATIVE (NEGATIVE); URINE BLOOD SMALL (NEGATIVE); URINE COLOR YELLOW (YELLOW); URINE GLUCOSE (UA) 50 mg/dL (Normal); URINE KETONE NEGATIVE (NEGATIVE); URINE LEUKOCYTE ESTERASE NEG Leu/uL (Negative); URINE PROTEIN NEGATIVE (NEGATIVE); URINE UROBILINOGEN 0.2-1.0 mg/dL (0.2-1.0); WBC URINE 2 /hpf (0-5)
[2016-10-05 03:29] VITALS: O2SAT 99
[2016-10-05] MEDS: Insulin Lispro (humaLOG) 100 Units/ml Inj SC SCH ×2 (05:47→12:18)
--- NOTE | 2016-10-05 06:56 | CP.PCM.CON ---
<[place]Bianca major - Last Filed: 10/05/16 08:22> History of Present Illness - History of Present Illness History of Present Illness: GENERAL SURGERY CONSULT NOTE FOR DR. GUY 81yo M with PMHx of HTN, DM, prostate cancer, choledocholithiasis s/p open cholecystectomy with common bile duct exploration and placement of T tube on 07/15 , POD#82 who presented to the ED due to T tube coming out. Back on 09/01/16, he had presented to the ED due to T tube partially coming out. Two additional sutures were placed to secure T tube in place. However, yesterday, the tube came out entirely. is concerned about taking the patient home due to drainage from the site and therefore the patient was admitted for observation. The states that she is also concerned that part of the T tube is still inside. She thinks the tube did not entirely come out. Tried to find specimen to examine it to see if everything was intact but pathology does not have it and it seems the tube was thrown away. The patient does not report any pain, nausea, vomiting, diarrhea, fever, or chills. The states that the patient has abdominal pain when he coughs and moves. His has been keeping daily outputs from the T tube. Outputs for the past week are as follows: 09/28: 440cc 09/29: 380cc 09/30: 460cc 10/01: 365cc 10/02: 400cc 10/03: 405cc PMHx: anemia, dementia, DM, gastritis, HTN, prostate cancer with seeding, choledocholithiasis Surgeries: open cholecystectomy with common bile duct exploration with T tube placement on 07/15/16 Allergies: none Social history: occasional alcohol, no smoking Review of Systems - Review of Systems All systems: reviewed and no additional remarkable complaints except (as per HPI ) Past Patient History - Infectious Disease Hx of Infectious Diseases: None - Tetanus Immunizations Tetanus Immunization: Unknown - Past Medical History & Family History Past Medical History?: Yes - Past Social History Smoking Status: Never Smoked - CARDIAC Hx Cardiac Disorders: Yes (HTN) - PULMONARY Hx Respiratory Disorders: No - NEUROLOGICAL Hx Dementia: Yes - HEENT Other/Comment: [place] - RENAL Hx Chronic Kidney Disease: No - ENDOCRINE/METABOLIC Hx Endocrine Disorders: Yes (DM) - HEMATOLOGICAL/ONCOLOGICAL Hx Anemia: Yes - INTEGUMENTARY Hx Dermatological Problems: No - MUSCULOSKELETAL/RHEUMATOLOGICAL Hx Falls: No - GASTROINTESTINAL Hx Gall Bladder Disease: Yes Hx Gastritis: Yes - GENITOURINARY/GYNECOLOGICAL Hx Genitourinary Disorders: Yes - PSYCHIATRIC Hx Substance Use: No - SURGICAL HISTORY Hx Cholecystectomy: Yes - ANESTHESIA Hx Anesthesia: Yes Hx Anesthesia Reactions: No Hx Malignant Hyperthermia: No Meds Allergies/Adverse Reactions: Allergies Allergy/AdvReac Type Severity Reaction Status Date / Time No Known Allergies Allergy Verified 09/01/16 16:10 - Medications Medications: Current Medications Carvedilol (Coreg) 6.25 mg PO Q12 [facility] Donepezil HCl (Aricept) 10 mg PO DAILY [facility] Sodium Chloride (Sodium Chloride 0.9%) 1,000 mls @ 100 mls/hr IV .Q10H [facility] Last Admin: 10/05/16 01:16 Dose: 100 mls/hr Insulin Human Lispro (Humalog) 0 units SC Q6H JENNIFER PRN Reason: Protocol Last Admin: 10/05/16 05:47 Dose: Not Given Ondansetron HCl (Zofran Inj) 4 mg IVP Q6 PRN PRN Reason: Nausea/Vomiting Pantoprazole Sodium (Protonix Ec Tab) 40 mg PO DAILY [facility] Physical Exam - Constitutional Appears: Well, Non-toxic, No Acute Distress - Head Exam Head Exam: ATRAUMATIC, NORMAL INSPECTION - Respiratory Exam Respiratory Exam: NORMAL BREATHING PATTERN. absent: Respiratory Distress - Cardiovascular Exam Cardiovascular Exam: +S1, +S2 - GI/Abdominal Exam GI & Abdominal Exam: Soft. absent: Distended, Firm, Guarding, Rigid, Tenderness Additional comments: Open cholecystectomy scar No drainage able to be expressed from previous T tube site. No erythema, tenderness, signs of infection - Neurological Exam Neurological exam: Alert, CN II-XII Intact, Oriented x3 - Psychiatric Exam Psychiatric exam: Normal Affect, Normal Mood - Skin Skin Exam: Dry, Normal Color, Warm Results - Vital Signs Recent Vital Signs: Last Vital Signs Temp 98.2 F 10/05/16 03:05 Pulse 71 10/05/16 03:05 Resp 19 10/05/16 03:05 BP 113/62 10/05/16 03:05 Pulse Ox 99 10/05/16 03:05 - Labs Result Diagrams: 10/05/16 06:40 10/05/16 06:40 Labs: Laboratory Results - last 24 hr 10/04/16 10/04/16 10/04/16 23:48 23:48 23:50 WBC 8.8 RBC 3.60 L Hgb 11.2 L Hct 34.1 L MCV 94.7 H MCH 31.1 H MCHC 32.9 L RDW 13.9 Plt Count 130 MPV 10.8 Neut % (Auto) 60.5 Lymph % (Auto) 27.9 [place] % (Auto) 8.8 Eos % (Auto) 2.0 Baso % (Auto) 0.8 Neut # 5.3 Lymph # 2.4 [place] # 0.8 Eos # 0.2 Baso # 0.1 pO2 18 L VBG pH 7.40 VBG pCO2 37 L VBG HCO3 21.8 VBG Total CO2 24.0 VBG O2 Sat (Calc) 17.7 L VBG Base Excess -1.5 L VBG Potassium 4.3 Glucose 199 H Lactate 1.4 FiO2 21.0 Sodium 135 136.0 Potassium 4.1 Chloride 106 106.0 Carbon Dioxide 19 L Anion Gap 14 BUN 31 H Creatinine 1.6 H Est GFR ( Amer) 50 Est GFR (Non-Af Amer) 41 POC Glucose (mg/dL) Random Glucose 185 H Calcium 9.1 Total Bilirubin 1.0 AST 124 H D ALT 171 H D Alkaline Phosphatase 183 H Troponin I 0.0150 Total Protein 6.5 Albumin 3.5 Globulin 3.0 Albumin/Globulin Ratio 1.2 Lipase 272 Venous Blood Potassium 4.3 Urine Color Urine Clarity Urine pH Ur Specific [place] Urine Protein Urine Glucose (UA) Urine Ketones Urine Blood Urine Nitrate Urine Bilirubin Urine Urobilinogen Ur Leukocyte Esterase Urine RBC (Auto) Urine Microscopic WBC Ur Squamous Epith Cells Urine Bacteria Hyaline Casts 10/05/16 10/05/16 10/05/16 00:41 01:30 05:42 WBC RBC Hgb Hct MCV MCH MCHC RDW Plt Count MPV Neut % (Auto) Lymph % (Auto) [place] % (Auto) Eos % (Auto) Baso % (Auto) Neut # Lymph # [place] # Eos # Baso # pO2 VBG pH VBG pCO2 VBG HCO3 VBG Total CO2 VBG O2 Sat (Calc) VBG Base Excess VBG Potassium Glucose Lactate FiO2 Sodium Potassium Chloride Carbon Dioxide Anion Gap BUN Creatinine Est GFR ( Amer) Est GFR (Non-Af Amer) POC Glucose (mg/dL) 189 H 132 H Random Glucose Calcium Total Bilirubin AST ALT Alkaline Phosphatase Troponin I Total Protein Albumin Globulin Albumin/Globulin Ratio Lipase Venous Blood Potassium Urine Color Yellow Urine Clarity Slighty-cloudy Urine pH 5.0 Ur Specific [place] 1.019 Urine Protein Negative Urine Glucose (UA) 50 Urine Ketones Negative Urine Blood Small Urine Nitrate Negative Urine Bilirubin Negative Urine Urobilinogen 0.2-1.0 Ur Leukocyte Esterase Neg Urine RBC (Auto) 8 H Urine Microscopic WBC 2 Ur Squamous Epith Cells < 1 Urine Bacteria Occ H Hyaline Casts 0-2 Assessment & Plan - Assessment and Plan (Free Text) Assessment: 81yo M with PMHx of HTN, DM, prostate cancer, choledocholithiasis s/p open cholecystectomy with common bile duct exploration and placement of T tube on 07/15 , now POD#82 who presented to the ED due to T tube coming out - Afebrile, VSS - No leukocytosis - Bili WNL - Elevated LFTs - T tube is now out - No drainage noted from previous T tube site, no drainage able to be expressed , area non tender - Dr. Guy will eval patient in AM - Discussed plan with Dr. Carly Baron PGY-2 <Paxton Brandt - Last Filed: 10/05/16 11:54> Meds - Medications Medications: Current Medications Carvedilol (Coreg) 6.25 mg PO Q12 [facility] Last Admin: 10/05/16 09:22 Dose: 6.25 mg Donepezil HCl (Aricept) 10 mg PO DAILY [facility] Last Admin: 10/05/16 09:22 Dose: 10 mg Sodium Chloride (Sodium Chloride 0.9%) 1,000 mls @ 100 mls/hr IV .Q10H [facility] Last Admin: 10/05/16 01:16 Dose: 100 mls/hr Insulin Human Lispro (Humalog) 0 units SC Q6H JENNIFER PRN Reason: Protocol Last Admin: 10/05/16 05:47 Dose: Not Given Ondansetron HCl (Zofran Inj) 4 mg IVP Q6 PRN PRN Reason: Nausea/Vomiting Pantoprazole Sodium (Protonix Ec Tab) 40 mg PO DAILY [facility] Last Admin: 10/05/16 09:22 Dose: 40 mg Results - Vital Signs Recent Vital Signs: Last Vital Signs Temp 98.0 F 10/05/16 08:08 Pulse 66 10/05/16 09:22 Resp 20 10/05/16 08:08 BP 120/65 10/05/16 09:22 Pulse Ox 99 10/05/16 08:08 - Labs Result Diagrams: 10/05/16 06:40 10/05/16 06:40 Labs: Laboratory Results - last 24 hr 10/04/16 10/04/16 10/04/16 23:48 23:48 23:50 WBC 8.8 RBC 3.60 L Hgb 11.2 L Hct 34.1 L MCV 94.7 H MCH 31.1 H MCHC 32.9 L RDW 13.9 Plt Count 130 MPV 10.8 Neut % (Auto) 60.5 Lymph % (Auto) 27.9 [place] % (Auto) 8.8 Eos % (Auto) 2.0 Baso % (Auto) 0.8 Neut # 5.3 Lymph # 2.4 [place] # 0.8 Eos # 0.2 Baso # 0.1 pO2 18 L VBG pH 7.40 VBG pCO2 37 L VBG HCO3 21.8 VBG Total CO2 24.0 VBG O2 Sat (Calc) 17.7 L VBG Base Excess -1.5 L VBG Potassium 4.3 Glucose 199 H Lactate 1.4 FiO2 21.0 Sodium 135 136.0 Potassium 4.1 Chloride 106 106.0 Carbon Dioxide 19 L Anion Gap 14 BUN 31 H Creatinine 1.6 H Est GFR ( Amer) 50 Est GFR (Non-Af Amer) 41 POC Glucose (mg/dL) Random Glucose 185 H Calcium 9.1 Total Bilirubin 1.0 AST 124 H D ALT 171 H D Alkaline Phosphatase 183 H Troponin I 0.0150 Total Protein 6.5 Albumin 3.5 Globulin 3.0 Albumin/Globulin Ratio 1.2 Lipase 272 Venous Blood Potassium 4.3 Urine Color Urine Clarity Urine pH Ur Specific [place] Urine Protein Urine Glucose (UA) Urine Ketones Urine Blood Urine Nitrate Urine Bilirubin Urine Urobilinogen Ur Leukocyte Esterase Urine RBC (Auto) Urine Microscopic WBC Ur Squamous Epith Cells Urine Bacteria Hyaline Casts 10/05/16 10/05/16 10/05/16 00:41 01:30 05:42 WBC RBC Hgb Hct MCV MCH MCHC RDW Plt Count MPV Neut % (Auto) Lymph % (Auto) [place] % (Auto) Eos % (Auto) Baso % (Auto) Neut # Lymph # [place] # Eos # Baso # pO2 VBG pH VBG pCO2 VBG HCO3 VBG Total CO2 VBG O2 Sat (Calc) VBG Base Excess VBG Potassium Glucose Lactate FiO2 Sodium Potassium Chloride Carbon Dioxide Anion Gap BUN Creatinine Est GFR ( Amer) Est GFR (Non-Af Amer) POC Glucose (mg/dL) 189 H 132 H Random Glucose Calcium Total Bilirubin AST ALT Alkaline Phosphatase Troponin I Total Protein Albumin Globulin Albumin/Globulin Ratio Lipase Venous Blood Potassium Urine Color Yellow Urine Clarity Slighty-cloudy Urine pH 5.0 Ur Specific [place] 1.019 Urine Protein Negative Urine Glucose (UA) 50 Urine Ketones Negative Urine Blood Small Urine Nitrate Negative Urine Bilirubin Negative Urine Urobilinogen 0.2-1.0 Ur Leukocyte Esterase Neg Urine RBC (Auto) 8 H Urine Microscopic WBC 2 Ur Squamous Epith Cells < 1 Urine Bacteria Occ H Hyaline Casts 0-2 10/05/16 10/05/16 10/05/16 06:40 06:40 11:11 WBC 9.4 RBC 3.71 L Hgb 11.6 L Hct 34.8 L MCV 93.9 MCH 31.3 H MCHC 33.3 RDW 14.0 Plt Count 125 L MPV 10.8 Neut % (Auto) 57.6 Lymph % (Auto) 30.0 [place] % (Auto) 9.8 Eos % (Auto) 2.2 Baso % (Auto) 0.4 Neut # 5.4 Lymph # 2.8 [place] # 0.9 H Eos # 0.2 Baso # 0.0 pO2 VBG pH VBG pCO2 VBG HCO3 VBG Total CO2 VBG O2 Sat (Calc) VBG Base Excess VBG Potassium Glucose Lactate FiO2 Sodium 138 Potassium 3.8 Chloride 108 H Carbon Dioxide 20 L Anion Gap 14 BUN 31 H Creatinine 1.5 Est GFR ( Amer) 54 Est GFR (Non-Af Amer) 45 POC Glucose (mg/dL) 59 L Random Glucose 92 Calcium 9.2 Total Bilirubin 1.0 AST 129 H ALT 183 H Alkaline Phosphatase 194 H Troponin I Total Protein 6.6 Albumin 3.4 L Globulin 3.1 Albumin/Globulin Ratio 1.1 Lipase Venous Blood Potassium Urine Color Urine Clarity Urine pH Ur Specific [place] Urine Protein Urine Glucose (UA) Urine Ketones Urine Blood Urine Nitrate Urine Bilirubin Urine Urobilinogen Ur Leukocyte Esterase Urine RBC (Auto) Urine Microscopic WBC Ur Squamous Epith Cells Urine Bacteria Hyaline Casts Assessment & Plan - Assessment and Plan (Free Text) Assessment: CT scan of abdomen and pelvis done showed no remaining tube. Shows hyperdense material in CBD suggestive of sludge/stone. Normal T.Bili. No leukocytosis. Patient is cleared to go home on regular diet. Discussed with Dr. Guy. Aiden Brandt, PGY1 <Des Guy - Last Filed: 10/05/16 13:55> Meds - Medications Medications: Current Medications Carvedilol (Coreg) 6.25 mg PO Q12 [facility] Last Admin: 10/05/16 09:22 Dose: 6.25 mg Donepezil HCl (Aricept) 10 mg PO DAILY [facility] Last Admin: 10/05/16 09:22 Dose: 10 mg Sodium Chloride (Sodium Chloride 0.9%) 1,000 mls @ 100 mls/hr IV .Q10H [facility] Last Admin: 10/05/16 12:17 Dose: Not Given Insulin Human Lispro (Humalog) 0 units SC Q6H JENNIFER PRN Reason: Protocol Last Admin: 10/05/16 12:18 Dose: Not Given Ondansetron HCl (Zofran Inj) 4 mg IVP Q6 PRN PRN Reason: Nausea/Vomiting Pantoprazole Sodium (Protonix Ec Tab) 40 mg PO DAILY [facility] Last Admin: 10/05/16 09:22 Dose: 40 mg Results - Vital Signs Recent Vital Signs: Last Vital Signs Temp 98.0 F 10/05/16 08:08 Pulse 66 10/05/16 09:22 Resp 20 10/05/16 08:08 BP 120/65 10/05/16 09:22 Pulse Ox 99 10/05/16 08:08 - Labs Result Diagrams: 10/05/16 06:40 10/05/16 06:40 Labs: Laboratory Results - last 24 hr 10/04/16 10/04/16 10/04/16 23:48 23:48 23:50 WBC 8.8 RBC 3.60 L Hgb 11.2 L Hct 34.1 L MCV 94.7 H MCH 31.1 H MCHC 32.9 L RDW 13.9 Plt Count 130 MPV 10.8 Neut % (Auto) 60.5 Lymph % (Auto) 27.9 [place] % (Auto) 8.8 Eos % (Auto) 2.0 Baso % (Auto) 0.8 Neut # 5.3 Lymph # 2.4 [place] # 0.8 Eos # 0.2 Baso # 0.1 pO2 18 L VBG pH 7.40 VBG pCO2 37 L VBG HCO3 21.8 VBG Total CO2 24.0 VBG O2 Sat (Calc) 17.7 L VBG Base Excess -1.5 L VBG Potassium 4.3 Glucose 199 H Lactate 1.4 FiO2 21.0 Sodium 135 136.0 Potassium 4.1 Chloride 106 106.0 Carbon Dioxide 19 L Anion Gap 14 BUN 31 H Creatinine 1.6 H Est GFR ( Amer) 50 Est GFR (Non-Af Amer) 41 POC Glucose (mg/dL) Random Glucose 185 H Calcium 9.1 Total Bilirubin 1.0 AST 124 H D ALT 171 H D Alkaline Phosphatase 183 H Troponin I 0.0150 Total Protein 6.5 Albumin 3.5 Globulin 3.0 Albumin/Globulin Ratio 1.2 Lipase 272 Venous Blood Potassium 4.3 Urine Color Urine Clarity Urine pH Ur Specific [place] Urine Protein Urine Glucose (UA) Urine Ketones Urine Blood Urine Nitrate Urine Bilirubin Urine Urobilinogen Ur Leukocyte Esterase Urine RBC (Auto) Urine Microscopic WBC Ur Squamous Epith Cells Urine Bacteria Hyaline Casts 10/05/16 10/05/16 10/05/16 00:41 01:30 05:42 WBC RBC Hgb Hct MCV MCH MCHC RDW Plt Count MPV Neut % (Auto) Lymph % (Auto) [place] % (Auto) Eos % (Auto) Baso % (Auto) Neut # Lymph # [place] # Eos # Baso # pO2 VBG pH VBG pCO2 VBG HCO3 VBG Total CO2 VBG O2 Sat (Calc) VBG Base Excess VBG Potassium Glucose Lactate FiO2 Sodium Potassium Chloride Carbon Dioxide Anion Gap BUN Creatinine Est GFR ( Amer) Est GFR (Non-Af Amer) POC Glucose (mg/dL) 189 H 132 H Random Glucose Calcium Total Bilirubin AST ALT Alkaline Phosphatase Troponin I Total Protein Albumin Globulin Albumin/Globulin Ratio Lipase Venous Blood Potassium Urine Color Yellow Urine Clarity Slighty-cloudy Urine pH 5.0 Ur Specific [place] 1.019 Urine Protein Negative Urine Glucose (UA) 50 Urine Ketones Negative Urine Blood Small Urine Nitrate Negative Urine Bilirubin Negative Urine Urobilinogen 0.2-1.0 Ur Leukocyte Esterase Neg Urine RBC (Auto) 8 H Urine Microscopic WBC 2 Ur Squamous Epith Cells < 1 Urine Bacteria Occ H Hyaline Casts 0-2 10/05/16 10/05/16 10/05/16 06:40 06:40 11:11 WBC 9.4 RBC 3.71 L Hgb 11.6 L Hct 34.8 L MCV 93.9 MCH 31.3 H MCHC 33.3 RDW 14.0 Plt Count 125 L MPV 10.8 Neut % (Auto) 57.6 Lymph % (Auto) 30.0 [place] % (Auto) 9.8 Eos % (Auto) 2.2 Baso % (Auto) 0.4 Neut # 5.4 Lymph # 2.8 [place] # 0.9 H Eos # 0.2 Baso # 0.0 pO2 VBG pH VBG pCO2 VBG HCO3 VBG Total CO2 VBG O2 Sat (Calc) VBG Base Excess VBG Potassium Glucose Lactate FiO2 Sodium 138 Potassium 3.8 Chloride 108 H Carbon Dioxide 20 L Anion Gap 14 BUN 31 H Creatinine 1.5 Est GFR ( Amer) 54 Est GFR (Non-Af Amer) 45 POC Glucose (mg/dL) 59 L Random Glucose 92 Calcium 9.2 Total Bilirubin 1.0 AST 129 H ALT 183 H Alkaline Phosphatase 194 H Troponin I Total Protein 6.6 Albumin 3.4 L Globulin 3.1 Albumin/Globulin Ratio 1.1 Lipase Venous Blood Potassium Urine Color Urine Clarity Urine pH Ur Specific [place] Urine Protein Urine Glucose (UA) Urine Ketones Urine Blood Urine Nitrate Urine Bilirubin Urine Urobilinogen Ur Leukocyte Esterase Urine RBC (Auto) Urine Microscopic WBC Ur Squamous Epith Cells Urine Bacteria Hyaline Casts Attending/Attestation - Attestation I have personally seen and examined this patient.: Yes I have fully participated in the care of the patient.: Yes I have reviewed all pertinent clinical information: Yes Notes (Text): 10/05/16 13:53 Pt was seen and examined at bedside on 10/05/16 Agree with above note and assessment Pt with CBC Exploration and T tube displacement Labs reviewed CT scan reviewed. Pt can be DC home f/u out pt Plan d.w pt in detail
[2016-10-05 07:32] LABS: BASO % 0.4 % (0.0-2.0); EOS # 0.2 K/uL (0.0-0.7); EOS % 2.2 % (0.0-4.0); HEMATOCRIT 34.8 % (35.0-51.0); LYMPH # 2.8 K/uL (1.0-4.3); MEAN CELL VOLUME 93.9 fl (80.0-94.0); MEAN CORPUSCULAR HEMOGLOBIN 31.3 pg (27.0-31.0); MEAN CORPUSCULAR HGB CONC 33.3 g/dL (33.0-37.0); MEAN PLATELET VOLUME 10.8 fl (7.2-11.7); MONO # 0.9 K/uL (0.0-0.8); MONO % 9.8 % (0.0-10.0); NEUT # 5.4 K/uL (1.8-7.0); NEUT % 57.6 % (50.0-75.0); WHITE BLOOD COUNT 9.4 K/uL (4.8-10.8)
[2016-10-05 07:53] LABS: ALB/GLOB RATIO 1.1 (1.0-2.1); CALCIUM 9.2 mg/dL (8.4-10.2); POTASSIUM 3.8 MMOL/L (3.6-5.0); TOTAL PROTEIN 6.6 G/DL (6.3-8.2)
--- NOTE | 2016-10-05 08:04 | CARD ---
APPROVED REPORT EKG Measurement Heart [id number] <Conclusion> Sinus rhythm with 1st degree AV block Low voltage QRS Possible Inferior infarct, age undetermined Abnormal ECG
[2016-10-05 08:10] VITALS: BP 120/65; PULSE 66; RESP 20; TEMP 98
[2016-10-05] MEDS ORDERED: Pantoprazole 40 mg EC Tab PO SCH (09:00)
--- NOTE | 2016-10-05 11:13 | CT ---
PROCEDURE: CT Abdomen and Pelvis without intravenous contrast HISTORY: s/p CBD T-tube removel COMPARISON: 07/12/2016 TECHNIQUE: Technique. Contrast Dose: Radiation dose: Total exam DLP = 961 mGy-cm. This CT exam was performed using one or more of the following dose reduction techniques: Automated exposure control, adjustment of the mA and/or kV according to patient size, and/or use of iterative reconstruction technique. FINDINGS: LOWER THORAX: Unremarkable. LIVER: Unremarkable. No gross lesion or ductal dilatation. GALLBLADDER AND BILE DUCTS: Mild dilatation of the extrahepatic common bile duct with hyperdense material internally compatible with calculi. Cholecystectomy. PANCREAS: Unremarkable. No gross lesion or ductal dilatation. SPLEEN: Unremarkable. ADRENALS: Unremarkable. No mass. KIDNEYS AND URETERS: Stable right renal cyst measuring roughly 3.8 centimeters.. No hydronephrosis. No solid mass. VASCULATURE: Unremarkable. No aortic aneurysm. BOWEL: Diffuse colonic diverticulosis.. No obstruction. No gross mural thickening. APPENDIX: Unremarkable. Normal appendix. PERITONEUM: Unremarkable. No free fluid. No free air. LYMPH NODES: Unremarkable. No enlarged lymph nodes. BLADDER: Unremarkable. REPRODUCTIVE: Unremarkable. BONES: No acute fracture. OTHER FINDINGS: Mild infiltration in the right anterior abdominal wall subcutaneous fat. IMPRESSION: Mild dilatation of the extrahepatic common bile duct with hyperdense material internally compatible with calculi/choledocholithiasis. Mild infiltration in the right anterior abdominal wall subcutaneous fat.
--- NOTE | 2016-10-05 13:25 | CP.PCM.DIS ---
Provider - Provider Date of Admission: 10/04/16 22:21 Attending physician: Phan Ortiz MD Primary care physician: Dr Joaquin Consults: Surgery : Dr Carroll Time Spent in preparation of Discharge (in minutes): 25 Diagnosis - Discharge Diagnosis (1) T-tube migration Status: Acute (2) History of cholecystectomy Status: Chronic (3) DM2 (diabetes mellitus, type 2) Status: Chronic (4) CKD (chronic kidney disease) stage 3, GFR 30-59 ml/min Status: Chronic (5) HTN (hypertension) Status: Acute Hospital Course - Lab Results Lab Results: Most Recent Lab Values WBC 9.4 K/uL (4.8-10.8) 10/05/16 06:40 RBC 3.71 Mil/uL (4.40-5.90) L 10/05/16 06:40 Hgb 11.6 g/dL (12.0-18.0) L 10/05/16 06:40 Hct 34.8 % (35.0-51.0) L 10/05/16 06:40 MCV 93.9 fl (80.0-94.0) 10/05/16 06:40 MCH 31.3 pg (27.0-31.0) H 10/05/16 06:40 MCHC 33.3 g/dL (33.0-37.0) 10/05/16 06:40 RDW 14.0 % (11.5-14.5) 10/05/16 06:40 Plt Count 125 K/uL (130-400) L 10/05/16 06:40 MPV 10.8 fl (7.2-11.7) 10/05/16 06:40 Neut % (Auto) 57.6 % (50.0-75.0) 10/05/16 06:40 Lymph % (Auto) 30.0 % (20.0-40.0) 10/05/16 06:40 [place] % (Auto) 9.8 % (0.0-10.0) 10/05/16 06:40 Eos % (Auto) 2.2 % (0.0-4.0) 10/05/16 06:40 Baso % (Auto) 0.4 % (0.0-2.0) 10/05/16 06:40 Neut # 5.4 K/uL (1.8-7.0) 10/05/16 06:40 Lymph # 2.8 K/uL (1.0-4.3) 10/05/16 06:40 [place] # 0.9 K/uL (0.0-0.8) H 10/05/16 06:40 Eos # 0.2 K/uL (0.0-0.7) 10/05/16 06:40 Baso # 0.0 K/uL (0.0-0.2) 10/05/16 06:40 pO2 18 mm/Hg (30-55) L 10/04/16 23:50 VBG pH 7.40 (7.32-7.43) 10/04/16 23:50 VBG pCO2 37 mmHg (40-60) L 10/04/16 23:50 VBG HCO3 21.8 mmol/L 10/04/16 23:50 VBG Total CO2 24.0 mmol/L (22-28) 10/04/16 23:50 VBG O2 Sat (Calc) 17.7 % (40-65) L 10/04/16 23:50 VBG Base Excess -1.5 mmol/L (0.0-2.0) L 10/04/16 23:50 VBG Potassium 4.3 mmol/L (3.6-5.2) 10/04/16 23:50 Sodium 136.0 mmol/L (132-148) 10/04/16 23:50 Chloride 106.0 mmol/L (98-107) 10/04/16 23:50 Glucose 199 mg/dL (75-110) H 10/04/16 23:50 Lactate 1.4 mmol/L (0.7-2.1) 10/04/16 23:50 FiO2 21.0 % 10/04/16 23:50 Sodium 138 mmol/l (132-148) 10/05/16 06:40 Potassium 3.8 MMOL/L (3.6-5.0) 10/05/16 06:40 Chloride 108 mmol/L (98-107) H 10/05/16 06:40 Carbon Dioxide 20 mmol/L (22-30) L 10/05/16 06:40 Anion Gap 14 (10-20) 10/05/16 06:40 BUN 31 mg/dl (9-20) H 10/05/16 06:40 Creatinine 1.5 mg/dL (0.8-1.5) 10/05/16 06:40 Est GFR ( Amer) 54 10/05/16 06:40 Est GFR (Non-Af Amer) 45 10/05/16 06:40 POC Glucose (mg/dL) 59 mg/dL (65-110) L 10/05/16 11:11 Random Glucose 92 mg/dL (75-110) 10/05/16 06:40 Calcium 9.2 mg/dL (8.4-10.2) 10/05/16 06:40 Total Bilirubin 1.0 mg/dl (0.2-1.3) 10/05/16 06:40 AST 129 U/L (17-59) H 10/05/16 06:40 ALT 183 U/L (21-72) H 10/05/16 06:40 Alkaline Phosphatase 194 U/L (38-126) H 10/05/16 06:40 Troponin I 0.0150 ng/mL (0.00-0.120) 10/04/16 23:48 Total Protein 6.6 G/DL (6.3-8.2) 10/05/16 06:40 Albumin 3.4 g/dL (3.5-5.0) L 10/05/16 06:40 Globulin 3.1 gm/dL (2.2-3.9) 10/05/16 06:40 Albumin/Globulin Ratio 1.1 (1.0-2.1) 10/05/16 06:40 Lipase 272 U/L (23-300) 10/04/16 23:48 Venous Blood Potassium 4.3 mmol/L (3.6-5.2) 10/04/16 23:50 Urine Color Yellow (YELLOW) 10/05/16 01:30 Urine Clarity Slighty-cloudy (Clear) 10/05/16 01:30 Urine pH 5.0 (5.0-8.0) 10/05/16 01:30 Ur Specific [place] 1.019 (1.003-1.030) 10/05/16 01:30 Urine Protein Negative mg/dL (NEGATIVE) 10/05/16 01:30 Urine Glucose (UA) 50 mg/dL (Normal) 10/05/16 01:30 Urine Ketones Negative mg/dL (NEGATIVE) 10/05/16 01:30 Urine Blood Small (NEGATIVE) 10/05/16 01:30 Urine Nitrate Negative (NEGATIVE) 10/05/16 01:30 Urine Bilirubin Negative (NEGATIVE) 10/05/16 01:30 Urine Urobilinogen 0.2-1.0 mg/dL (0.2-1.0) 10/05/16 01:30 Ur Leukocyte Esterase Neg Jessi/uL (Negative) 10/05/16 01:30 Urine RBC (Auto) 8 /hpf (0-3) H 10/05/16 01:30 Urine Microscopic WBC 2 /hpf (0-5) 10/05/16 01:30 Ur Squamous Epith Cells < 1 /hpf (0-5) 10/05/16 01:30 Urine Bacteria Occ (<OCC) H 10/05/16 01:30 Hyaline Casts 0-2 /hpf (0-2) 10/05/16 01:30 - Hospital Course Hospital Course: [age]y/o gent with hx of Open Cholecystectomy with CBD exploration and placement of T tube ( July 2016) came in because his T tube got accidentally pulled out. Surgery was consulted - Dr Carroll saw pt and deemed that T Tube does not need to be replaced. CT of abdomen :Mild dilatation of the extrahepatic common bile duct with hyperdense material internally compatible with calculi/choledocholithiasis. Mild infiltration in the right anterior abdominal wall subcutaneous fat. Surgery cleared pt for discharge and rec that pt follow up with dr Daugherty. (1) T-tube accidentally came off Status: Acute Surgery consulted- ok to d/c T tube pt to ff up with dr Carroll next wk (2) History of Open cholecystectomy with CBD Exploration and Tube placement Status: Chronic (3) DM2 (diabetes mellitus, type 2) Status: Chronic accucheck cont Amary (4) CKD (chronic kidney disease) stage 3, GFR 30-59 ml/min Status: Chronic stable and improved (5) HTN (hypertension) Status: Acute cont Coreg Discharge Exam - Head Exam Head Exam: ATRAUMATIC, NORMAL INSPECTION, NORMOCEPHALIC - Eye Exam Eye Exam: EOMI, Normal appearance Pupil Exam: NORMAL ACCOMODATION - ENT Exam ENT Exam: Mucous Membranes Moist, Normal External Ear Exam - Neck Exam Neck exam: Full Rom - Respiratory Exam Respiratory Exam: NORMAL BREATHING PATTERN. absent: Rales, Respiratory Distress - Cardiovascular Exam Cardiovascular Exam: REGULAR RHYTHM, +S1, +S2 - GI/Abdominal Exam GI & Abdominal Exam: Normal Bowel Sounds, Soft. absent: Tenderness Additional comments: right surgical wound with dressing intact - Extremities Exam Extremities exam: full ROM, normal capillary refill, normal inspection, pedal pulses present - Back Exam Back exam: FULL ROM. absent: CVA tenderness (L), CVA tenderness (R) - Neurological Exam Neurological exam: Alert, CN II-XII Intact, Normal Gait, Oriented x3, Reflexes Normal - Psychiatric Exam Psychiatric exam: Normal Affect, Normal Mood - Skin Skin Exam: Dry, Normal Color, Warm Discharge Plan - Follow Up Plan Condition: GOOD Disposition: HOME/ ROUTINE Instructions: ERCP (Endoscopic Retrograde Cholangiopancreatography) (DC), Acute Abdominal Pain (DC) Additional Instructions: ff up with Dr Jalloh in 1 wk appt with PMD Dr Emani lynn Referrals: Alejandro Joaquin [Family Provider] - Des Carroll MD [Staff Provider] -
--- NOTE | 2016-10-05 14:17 | RAD ---
HISTORY: Right upper quadrant pain COMPARISON: 07/16/2016. FINDINGS: LUNGS: The lungs are hyperinflated and there is peribronchial thickening with chronic changes in both lungs. PLEURA: No significant pleural effusion identified, no pneumothorax apparent. CARDIOVASCULAR: The heart is normal in size. There is unfolding of the aorta. Atherosclerotic aortic arch calcifications are present. . OSSEOUS STRUCTURES: No significant abnormalities. VISUALIZED UPPER ABDOMEN: Normal. OTHER FINDINGS: None. IMPRESSION: No active pulmonary disease. COPD.
== END 2016-10-05 15:45 | disposition home or self-care (01) ==
LOC: H.ER 18:40 → H.ERHOLD 22:21 → H.MEDSURG1 10-05 03:04
PROVIDERS: ADMIT Internal Medicine; ATTEND Internal Medicine
DX: T83.021A Displacement of indwelling urethral catheter, initial encounter (principal); N17.9 Acute kidney failure, unspecified; I12.9 Hypertensive chronic kidney disease with stage 1 through stage 4 chronic kidney disease, or unspecified chronic kidney disease; N18.3 Chronic kidney disease, stage 3 (moderate); E11.22 Type 2 diabetes mellitus with diabetic chronic kidney disease; E03.9 Hypothyroidism, unspecified; E78.5 Hyperlipidemia, unspecified; E78.00 Pure hypercholesterolemia, unspecified; F03.90 Unspecified dementia, unspecified severity, without behavioral disturbance, psychotic disturbance, mood disturbance, and anxiety; K29.70 Gastritis, unspecified, without bleeding; Y83.9 Surgical procedure, unspecified as the cause of abnormal reaction of the patient, or of later complication, without mention of misadventure at the time of the procedure; Z85.46 Personal history of malignant neoplasm of prostate; Y92.9 Unspecified place or not applicable
CPT/HCPCS: 36415; 71010; 74176; 80053; 81003; 82803; 82948; 83690; 84484; 85025; 93005; 96360; 99285; G0378; J7040

== ENCOUNTER 2016-10-28 01:16 | Inpatient (IN) | payer MEDICARE, MEDICAID ==
[2016-10-28 01:16] VITALS: BMI 29.2
[2016-10-28] MEDS ORDERED: Sodium Chloride 0.9% 1,000 ML IV STA (01:40)
[2016-10-28 02:40] LABS: BASO % 0.4 % (0.0-2.0); EOS % 0.3 % (0.0-4.0); HEMATOCRIT 32.8 % (35.0-51.0); LYMPH # 0.7 K/uL (1.0-4.3); LYMPH % 7.6 % (20.0-40.0); MEAN CELL VOLUME 93.8 fl (80.0-94.0); MEAN CORPUSCULAR HGB CONC 33.1 g/dL (33.0-37.0); MEAN PLATELET VOLUME 9.9 fl (7.2-11.7); MONO # 0.7 K/uL (0.0-0.8); MONO % 8.1 % (0.0-10.0); NEUT # 7.6 K/uL (1.8-7.0); NEUT % 83.6 % (50.0-75.0); PLATELET COUNT 106 K/uL (130-400); RED CELL DISTRIBUTION WIDTH 13.9 % (11.5-14.5); WHITE BLOOD COUNT 9.1 K/uL (4.8-10.8)
[2016-10-28 02:46] LABS: VENOUS BLOOD GAS BASE EXCESS 5.1 mmol/L (0.0-2.0); VENOUS BLOOD GAS PCO2 33 mmHg (40-60); VENOUS BLOOD PH 7.53 (7.32-7.43)
[2016-10-28 02:47] LABS: POTASSIUM 3.5 MMOL/L (3.6-5.0)
[2016-10-28] MEDS ORDERED: Iohexol 240 (50 ml) PO ONE (02:47)
[2016-10-28 02:49] LABS: ALB/GLOB RATIO 1.2 (1.0-2.1); BILIRUBIN,TOTAL 0.7 mg/dl (0.2-1.3); TOTAL PROTEIN 6.7 G/DL (6.3-8.2)
[2016-10-28 02:50] LABS: CALCIUM 8.9 mg/dL (8.4-10.2)
[2016-10-28 03:02] LABS: TROPONIN I 0.046 ng/mL (0.00-0.120)
--- NOTE | 2016-10-28 04:47 | ED PDOC ---
"HPI: General Adult Time Seen by Provider: 10/28/16 01:33 Chief Complaint (Nursing): GI Problem Chief Complaint (Provider): vomiting, weakness History Per: Patient, Family, Forensic Photographer History/Exam Limitations: physical impairment (hard of hearing, family poor historian) Current Symptoms Are (Timing): Still Present Severity: Moderate Recently: Hospitalized Additional Complaint(s): 81yo male presents c/o several episodes nonbloody vomiting, generalized weakness and malaise. Pt hospitalized several times over last several months for cholecystectomy with T-tube, sepsis/bacteremia. Denies cough, chest pain, headache or neck pain. Past Medical History Reviewed: Historical Data, Nursing Documentation, Vital Signs Vital Signs: Last Vital Signs Temp 98.1 F 10/28/16 06:08 Pulse 83 10/28/16 04:54 Resp 18 10/28/16 01:29 BP 145/85 10/28/16 01:29 Pulse Ox 93 L 10/28/16 04:54 - Medical History PMH: Anemia, Arthritis, Dementia, Diabetes, Gastritis, Gall Bladder Disease, HTN , Hypercholesterolemia, Hyperlipidemia, Hypothyroidism Denies: Chronic Kidney Disease - Surgical History Surgical History: Cholecystectomy Other surgeries: TTube - Family History Family History: States: Unknown Family Hx - Living Arrangements Living Arrangements: With Family - Social History Current smoker - smoking cessation education provided: No - Home Medications Home Medications: Ambulatory Orders Medication Instructions Recorded Pantoprazole [Protonix EC Tab] 40 mg PO DAILY #10 ect 08/05/16 Cholecalciferol (Vitamin D3) 5,000 unit PO DAILY 09/01/16 [Vitamin D3] Donepezil HCl [Aricept] 10 mg PO DAILY 09/01/16 Glimepiride [amaRYL] 4 mg PO BID 09/01/16 Temazepam [Restoril] 30 mg PO HS 09/01/16 Carvedilol [Coreg] 6.25 mg PO Q12 #60 tab 09/02/16 - Allergies Allergies/Adverse Reactions: Allergies Allergy/AdvReac Type Severity Reaction Status Date / Time No Known Allergies Allergy Verified 09/01/16 16:10 Review of Systems Review Of Systems: ROS cannot be obtained secondary to pt's inabilty to answer questions. (poor historian) Constitutional: Positive for: Chills, Malaise Gastrointestinal: Positive for: Nausea, Vomiting, Abdominal Pain Musculoskeletal: Negative for: Neck Pain, Arm Pain, Leg Pain Skin: Negative for: Rash, Lesions Neurological: Positive for: Weakness. Negative for: Headache Physical Exam - Reviewed Nursing Documentation Reviewed: Yes Vital Signs Reviewed: Yes - Physical Exam Appears: Positive for: Non-toxic (elderly male awake, hard of hearing) Head Exam: Positive for: ATRAUMATIC, NORMAL INSPECTION, NORMOCEPHALIC Skin: Positive for: Normal Color, Warm, DRY Eye Exam: Positive for: EOMI, PERRL. Negative for: Scleral icterus ENT: Positive for: Normal ENT Inspection Neck: Positive for: Normal, Painless ROM Cardiovascular/Chest: Positive for: Regular Rate, Rhythm Respiratory: Positive for: CNT, Normal Breath Sounds Gastrointestinal/Abdominal: Positive for: Bowel Sounds, Soft, Tenderness (mild mid and upper abd tenderness; RUQ surgical scar healed, no drainage, erythema or edema) Back: Positive for: Normal Inspection Extremity: Positive for: Normal ROM Neurologic/Psych: Positive for: Alert, Oriented. Negative for: Motor/Sensory Deficits - Laboratory Results Result Diagrams: 10/28/16 02:35 10/28/16 02:35 - ECG ECG: Positive for: Interpreted By La ECG Rhythm: Positive for: Normal QRS, Normal ST Segment, Sinus Rhythm, Nonspecific Changes Rate: 83 O2 Sat by Pulse Oximetry: 93 Pulse Ox Interpretation: Abnormal (mild hypoxia) - Radiology X-Ray: Interpreted by La X-Ray Interpretation: No Acute Disease Medical Decision Making Medical Decision Making: Pt found to have fever on rectal temp. Sepsis workup therefor initiated. Cultures, labs, lactate, IVF. Tylenol ordered. EKG performed. Labs reviewed, WBC 9.1 w L shift chem reveals evidence of dehydration with mild hypokalemia and mild hyponatremia lactate normal at 1.2 UDip shows neg leuk esterase CT abd pelv ordered given pain, fever, vomiting, r/o abscess given recent hardware placement, SBO, or other acute abdominal pathology. ABDOMEN: LIVER: Fatty infiltration of the liver. GALLBLADDER AND BILE DUCTS: Common bile duct is dilated, measuring 10 mm in diameter. Best seen on image 51 of series 601, there is a 9 mm round density in the region of the distal common bile duct, which could represent a distal common bile duct stone. Cholecystectomy clips. PANCREAS: No CT evidence of acute pancreatitis. SPLEEN: No acute abnormality of the spleen identified. ADRENALS: No acute abnormality of the adrenal glands identified. KIDNEYS AND URETERS: Bilateral perinephric stranding and fluid, stable in appearance, a nonspecific finding. Low density probable cysts in the kidneys bilaterally. No acute abnormality of the kidneys identified. YURY GRANDE | Final Radiology Report CONFIDENTIALITY STATEMENT This report is intended only for use by the referring physician, and only in accordance with law. If you received this in error, call [phone]. Page 2 of 2 STOMACH AND BOWEL: Multiple duodenal diverticula again seen, including a stable- appearing large duodenal diverticulum abutting the head of the pancreas on the right. Extensive colonic diverticulosis, without evidence of acute diverticulitis. Otherwise, no significant abnormality of the bowel is identified. No evidence of bowel obstruction. APPENDIX: Normal appendix is not seen, however, there are no significant inflammatory changes visualized in the expected location of the appendix to suggest appendicitis. Recommend clinical correlation. PELVIS: BLADDER: No acute abnormality of the bladder identified. REPRODUCTIVE: Brachytherapy seeds noted in the prostate gland. No acute abnormality of the reproductive organs is seen. ABDOMEN and PELVIS: INTRAPERITONEAL SPACE: Stable appearance of a small amount of free fluid in the posterior pelvis, in the presacral region. No evidence of free air. BONES/JOINTS: Bony structures appear demineralized. SOFT TISSUES: Suspect scarring in the right anterior abdominal wall soft tissues. No evidence of abdominal wall hernia containing bowel. VASCULATURE: Atherosclerotic calcification. No evidence of abdominal aortic aneurysm. LYMPH NODES: No evidence of diffuse lymphadenopathy. IMPRESSION: - Biliary ductal dilatation, with a possible stone in the distal common bile duct. Recommend correlation with LFTs for laboratory evidence of biliary obstruction, and further workup as indicated, such as with right upper ultrasound or MRCP. - Otherwise, no evidence of significant acute process. - Multiple duodenal diverticula. - Extensive colonic diverticulosis. - See above for remaining findings. Thank you for allowing us to participate in the care of your patient. Dictated and Authenticated by: Shantell Briggs MD 10/28/2016 6:43 AM Eastern Time ([place] & [place]) D/w hospitalist Dr Szymanski for admission. To start vanco and zosyn given recent bacteremia and now return of fever. Lactate 1.2, BP maintaining, does not qualify for severe sepsis. ED OBSERVATION Date of observation admission: 10/28/16 Time of observation admission: 03:07 - Observation admission statement Patient is being placed in observation because:: vomiting, fever, cough with history of recent bacteremia and complicated abdominal surgery - Progress Note Progress Note: 10/28/16 07:32 see other notes in MDM Patient required frequent re-evaluations to gauge for development of sepsis. Does not meet severe sepsis criteria but given fever, cough, recent multiple hospitalizations to cover for hospital acquired infection and admit to tele Dr Szymanski for further workup. Disposition - Clinical Impression Clinical Impression: Sepsis, Dehydration - Patient ED Disposition Is Patient to be Admitted: Yes Counseled Patient/Family Regarding: Studies Performed, Diagnosis, Need For Followup - Disposition Disposition Time: 03:07 Condition: GUARDED - Pt Status Changed To: Hospital Disposition Of: Inpatient - Admit Certification Admit to Inpatient:: After my assessment, the patient will require hospitalization for at least two midnights. This is because of the severity of symptoms shown, intensity of services needed, and/or the medical risk in this patient being treated as an outpatient. - POA Present On Arrival: Poor Glycemic Control"
[2016-10-28 04:56] LABS: RBC URINE 1 /hpf (0-3); URINE BILIRUBIN NEGATIVE (NEGATIVE); URINE BLOOD NEGATIVE (NEGATIVE); URINE COLOR YELLOW (YELLOW); URINE GLUCOSE (UA) 50 mg/dL (Normal); URINE KETONE NEGATIVE (NEGATIVE); URINE LEUKOCYTE ESTERASE NEG Leu/uL (Negative); URINE PROTEIN 30 mg/dL (NEGATIVE); URINE UROBILINOGEN 0.2-1.0 mg/dL (0.2-1.0); WBC URINE 1 /hpf (0-5)
[2016-10-28 04:59] LABS: NEUTROPHIL 71 % (42-75); TOTAL CELLS COUNTED 100
--- NOTE | 2016-10-28 06:43 | CT ---
EXAM: CT Abdomen and Pelvis With Intravenous Contrast CLINICAL HISTORY: 81 years old, male; Signs and symptoms; Fever; Prior surgery; Surgery date: 6+ months; Surgery type: Cholescystecomy; Additional info: Fever, vomiting, abd pain, recent ttube remove TECHNIQUE: Axial computed tomography images of the abdomen and pelvis with intravenous contrast. This CT exam was performed using one or more of the following dose reduction techniques: automated exposure control, adjustment of the mA and/or kV according to patient size, and/or use of iterative reconstruction technique. Coronal and sagittal reformatted images were created and reviewed. CONTRAST: 90 mL of [id number] administered intravenously. EXAM DATE/TIME: 10/28/2016 2:47 AM COMPARISON: Prior CT abdomen and pelvis of 10/05/2016 9:53:34 AM FINDINGS: LIMITATIONS: Mild streak/motion artifact. LOWER THORAX: Heart: Coronary artery calcification. ABDOMEN: LIVER: Fatty infiltration of the liver. GALLBLADDER AND BILE DUCTS: Common bile duct is dilated, measuring 10 mm in diameter. Best seen on image 51 of series 601, there is a 9 mm round density in the region of the distal common bile duct, which could represent a distal common bile duct stone. Cholecystectomy clips. PANCREAS: No CT evidence of acute pancreatitis. SPLEEN: No acute abnormality of the spleen identified. ADRENALS: No acute abnormality of the adrenal glands identified. KIDNEYS AND URETERS: Bilateral perinephric stranding and fluid, stable in appearance, a nonspecific finding. Low density probable cysts in the kidneys bilaterally. No acute abnormality of the kidneys identified. STOMACH AND BOWEL: Multiple duodenal diverticula again seen, including a stable-appearing large duodenal diverticulum abutting the head of the pancreas on the right. Extensive colonic diverticulosis, without evidence of acute diverticulitis. Otherwise, no significant abnormality of the bowel is identified. No evidence of bowel obstruction. APPENDIX: Normal appendix is not seen, however, there are no significant inflammatory changes visualized in the expected location of the appendix to suggest appendicitis. Recommend clinical correlation. PELVIS: BLADDER: No acute abnormality of the bladder identified. REPRODUCTIVE: Brachytherapy seeds noted in the prostate gland. No acute abnormality of the reproductive organs is seen. ABDOMEN and PELVIS: INTRAPERITONEAL SPACE: Stable appearance of a small amount of free fluid in the posterior pelvis, in the presacral region. No evidence of free air. BONES/JOINTS: Bony structures appear demineralized. SOFT TISSUES: Suspect scarring in the right anterior abdominal wall soft tissues. No evidence of abdominal wall hernia containing bowel. VASCULATURE: Atherosclerotic calcification. No evidence of abdominal aortic aneurysm. LYMPH NODES: No evidence of diffuse lymphadenopathy. IMPRESSION: - Biliary ductal dilatation, with a possible stone in the distal common bile duct. Recommend correlation with LFTs for laboratory evidence of biliary obstruction, and further workup as indicated, such as with right upper ultrasound or MRCP. - Otherwise, no evidence of significant acute process. - Multiple duodenal diverticula. - Extensive colonic diverticulosis. - See above for remaining findings.
[2016-10-28] MEDS ORDERED: Piperacillin/Tazobact 3.375 GM in Sodium Chloride 0.9% 100 ML IVPB STA (07:22)
--- NOTE | 2016-10-28 08:26 | CP.PCM.HP ---
<Bryson Turpin - Last Filed: 10/28/16 10:51> History of Present Illness - History of Present Illness History of Present Illness: HPI: This is an 81 y/o male with PMHx sig for HTN, HLD, Hypothyroid, and dementia who was admitted to our hospital one month ago b/c he thought his T tube was pulled out accidentally s/p cholecystectomy, was discharged and seen by Dr. Adler outpatient and the tube was removed. - For the last couple of days the patient has had a decreased appetite and feeling weak. The patient states that he had a low grade fever last night of 100.5, denies any chill or night sweats. He has also has had a cough x 4 days with nasal congestion. Denies any constipation or diarrhea. Pt has had several episodes non bloody vomits. ROS: limited given patient is very hard of hearing MHx: Dementia, gastritis, HTN, HLD, hypothyroid SHx: Cholecystectomy Allergies: NKDA Family Hx: Patient cannot provide at this time Social Hx: Lives with family, no EtOH, not tobacco ER course: Temperature: 102 CBC: WBC 9/1 w/ left shift CMP: Chem reveals evidence of dehydration w/ mild hypokalemia and mild hyponatremia Lactate: 1.2 EKG: Low voltage consistent with pts baseline Chest X Ray: Tylenol : administered U dip: neg leuco esterase CT abdomen: Showed biliary ductal dilation w/ possible stone in distal common bile duct. Multiple duodenal diverticula. Extensive duodenal diverticula - Patient is a full code, and the is the decision maker Present on Admission - Present on Admission Any Indicators Present on Admission: No Past Patient History - Infectious Disease Hx of Infectious Diseases: None - Tetanus Immunizations Tetanus Immunization: Unknown - Past Medical History & Family History Past Medical History?: Yes - Past Social History Smoking Status: Never Smoked - CARDIAC Hx Hypercholesterolemia: Yes Hx Hypertension: Yes - PULMONARY Hx Respiratory Disorders: No - NEUROLOGICAL Hx Dementia: Yes - HEENT Other/Comment: [place] - RENAL Hx Chronic Kidney Disease: No - ENDOCRINE/METABOLIC Hx Hypothyroidism: Yes - HEMATOLOGICAL/ONCOLOGICAL Hx Anemia: Yes - INTEGUMENTARY Hx Dermatological Problems: No - MUSCULOSKELETAL/RHEUMATOLOGICAL Hx Arthritis: Yes - GASTROINTESTINAL Hx Gall Bladder Disease: Yes Hx Gastritis: Yes - GENITOURINARY/GYNECOLOGICAL Hx Genitourinary Disorders: Yes - PSYCHIATRIC Hx Psychophysiologic Disorder: No Hx Substance Use: No - SURGICAL HISTORY Hx Cholecystectomy: Yes - ANESTHESIA Hx Anesthesia: Yes Hx Anesthesia Reactions: No Hx Malignant Hyperthermia: No Meds Allergies/Adverse Reactions: Allergies Allergy/AdvReac Type Severity Reaction Status Date / Time No Known Allergies Allergy Verified 09/01/16 16:10 Physical Exam - Constitutional Appears: No Acute Distress Additional comments: elderly man awake, hard of hearing - Head Exam Head Exam: ATRAUMATIC, NORMAL INSPECTION, NORMOCEPHALIC - Eye Exam Eye Exam: Normal appearance Pupil Exam: NORMAL ACCOMODATION, PERRL - Respiratory Exam Respiratory Exam: Clear to Auscultation Bilateral, NORMAL BREATHING PATTERN. absent: Rhonchi, Wheezes - Cardiovascular Exam Cardiovascular Exam: REGULAR RHYTHM, +S1, +S2 - GI/Abdominal Exam GI & Abdominal Exam: Normal Bowel Sounds, Soft Additional comments: Mild right quadrant tenderness. - RUQ surgical scar healed, no drainage, erythema or edema - Extremities Exam Extremities exam: Positive for: normal inspection. Negative for: calf tenderness - Back Exam Back exam: NORMAL INSPECTION - Neurological Exam Neurological exam: Alert, Oriented x3 - Psychiatric Exam Psychiatric exam: Normal Affect, Normal Mood - Skin Skin Exam: Normal Color, Warm Results - Vital Signs Recent Vital Signs: Last Vital Signs Temp 98.1 F 10/28/16 06:08 Pulse 83 10/28/16 07:33 Resp 18 10/28/16 01:29 BP 145/85 10/28/16 01:29 Pulse Ox 93 L 10/28/16 07:33 - Labs Result Diagrams: 10/28/16 02:35 10/28/16 02:35 Assessment & Plan - Assessment and Plan (Free Text) Assessment: 1) Sepsis of unclear etiology r/o pneumonia - Fever, cough, multiple recent hospitalizations - Fever of 102 in the ER - WBC of 9.2 w/ a left shift - IV Antibiotics: Azithromycin daily, Zosyn Q8, Vancomycin one dose given in ER -F/u: LDH, Mycoplama, Legionella AG, Blood culture, Urine culture, Sputum culture, Procalcitonin serology,Influenza swab official X Ray results 2) Abdominal pain w/ Nausea and vomiting s/p cholecystectomy on 08/2016 - Surgery has been consulted: Billiary ductal dilation w/ possible stone in distal common bile duct. 9 mm round density in region of common bile duct. - NPO as of now untill surgery evaluates the patient 3) DM2 - - NPO as of now untill surgery evaluates the patient - Accucheck - Hold sliding scale as of now while patient is NPO 4) Prophylaxis - DVT prophylaxis: SCD untill seen by surgery. If no surgical intervention needed then can start Lovenox 30 - GI prophylaxis: Protonix <Christina Szymanski - Last Filed: 10/28/16 11:51> Results - Vital Signs Recent Vital Signs: Last Vital Signs Temp 98.1 F 10/28/16 06:08 Pulse 68 10/28/16 08:10 Resp 20 10/28/16 08:10 BP 100/51 L 10/28/16 08:10 Pulse Ox 94 L 10/28/16 08:10 - Labs Result Diagrams: 10/28/16 02:35 10/28/16 02:35 Attending/Attestation - Attestation I have personally seen and examined this patient.: Yes I have fully participated in the care of the patient.: Yes I have reviewed all pertinent clinical information: Yes
[2016-10-28] MEDS ORDERED: Sodium Chloride 3% for Inhalation 4 ML VIAL.NEB IH PRN (08:50)
[2016-10-28] MEDS ORDERED: Enoxaparin 30 mg Syringe SC SCH (09:00)
[2016-10-28] MEDS: Pantoprazole 40 mg EC Tab PO SCH (12:10)
[2016-10-28] MEDS ORDERED: Pneumococcal 23-Valent Vaccine IM ONE (13:47)
[2016-10-28] MEDS: Azithromycin 500 MG in Sodium Chloride 0.9% 250 ML IVPB SCH (15:11)
--- NOTE | 2016-10-28 15:14 | CP.PCM.CON ---
<France Santizo - Last Filed: 10/28/16 16:01> History of Present Illness - History of Present Illness History of Present Illness: General surgery consult note for Dr. Carroll Consulted for: RUQ pain, nausea, and vomiting Pt is an 81 year old male with PMH of HTN, HLD, hypothyroidism, and dementia and PSH of open cholecystectomy with CBD exploration and T-tube placement 3 months ago with subsequent T-tube removal who presented to the ER with low grade feverccough, and decreased appetite. On exam patient had a fever of 102F, right sided abdominal pain, and CT of the abdomen and pelvis showed a dilated CBD of 10mm and a possible stone in the distal CBD and surgery was consulted. Patient reports that he has had pain in the RUQ with coughing and after he eats the past few day. Patient also reports nausea and vomiting non-bloody emesis after meals. Patient denies any diarrhea, constipation, dysuria, hematuria, hematochezia, hematuria, or flank pain. Last bowel movement was yesterday and was described as normal color and consistency. Currently patient states that his symptoms have resolved but that it is likely because he has only consumed water today. Patient has been afebrile for 12 hours. PMH: HTN, HLD, hypothyroidism, and dementia PSH: open cholecystectomy with CBD exploration and T-tube placement All: NKDA Social: denies ETOH and tobacco Review of Systems - Review of Systems All systems: reviewed and no additional remarkable complaints except (as per HPI ) - Constitutional Constitutional: Fever, Weakness Additional comments: decreased appetite - Cardiovascular Cardiovascular: Leg Edema. absent: Chest Pain, Chest Pain at Rest, Dyspnea - Respiratory Respiratory: Cough, Chest Congestion. absent: Dyspnea - Gastrointestinal Gastrointestinal: As Per HPI, Abdominal Pain, Nausea, Vomiting. absent: Change in Bowel Habits, Constipation, Diarrhea, Hematemesis, Hematochezia, Melena - Genitourinary Genitourinary: As Per HPI. absent: Dysuria, Flank Pain, Hematuria - Musculoskeletal Musculoskeletal: Abnormal Gait (unstable, weak after short ambulation distance) , Back Pain - Neurological Neurological: Abnormal Gait Past Patient History - Infectious Disease Hx of Infectious Diseases: None - Tetanus Immunizations Tetanus Immunization: Unknown - Past Medical History & Family History Past Medical History?: Yes - Past Social History Smoking Status: Never Smoked - CARDIAC Hx Hypercholesterolemia: Yes Hx Hypertension: Yes - PULMONARY Hx Respiratory Disorders: No - NEUROLOGICAL Hx Dementia: Yes - HEENT Other/Comment: [place] - RENAL Hx Chronic Kidney Disease: No - ENDOCRINE/METABOLIC Hx Diabetes Mellitus Type 1: Yes Hx Hypothyroidism: Yes - HEMATOLOGICAL/ONCOLOGICAL Hx AIDS: No Hx Anemia: Yes Hx Human Immunodeficiency Virus (HIV): No - INTEGUMENTARY Hx Dermatological Problems: No - MUSCULOSKELETAL/RHEUMATOLOGICAL Hx Falls: No - GASTROINTESTINAL Hx Gall Bladder Disease: Yes Hx Gastritis: Yes - GENITOURINARY/GYNECOLOGICAL Hx Genitourinary Disorders: Yes - PSYCHIATRIC Hx Substance Use: No - SURGICAL HISTORY Hx Cholecystectomy: Yes - ANESTHESIA Hx Anesthesia: Yes Hx Anesthesia Reactions: No Hx Malignant Hyperthermia: No Meds Allergies/Adverse Reactions: Allergies Allergy/AdvReac Type Severity Reaction Status Date / Time No Known Allergies Allergy Verified 09/01/16 16:10 - Medications Medications: Current Medications Carvedilol (Coreg) 3.125 mg PO Q12H [facility] Cholecalciferol (Vitamin D) 5,000 iu PO DAILY [facility] Donepezil HCl (Aricept) 10 mg PO DAILY [facility] Azithromycin 500 mg/ Sodium (Chloride) 250 mls @ 250 mls/hr IVPB DAILY [facility] Piperacillin Sod/Tazobactam (Sod 2.25 gm/ Sodium Chloride) 100 mls @ 100 mls/ hr IVPB Q8 [facility] Potassium Chloride 20 meq/ (Sodium Chloride) 1,010 mls @ 100 mls/hr IV .Q10H6M [facility] Stop: 10/29/16 10:16 Last Admin: 10/28/16 11:29 Dose: 100 mls/hr Pantoprazole Sodium (Protonix Ec Tab) 40 mg PO DAILY [facility] Temazepam (Restoril) 15 mg PO HS [facility] Physical Exam - Constitutional Appears: Well, Non-toxic, No Acute Distress - Head Exam Head Exam: ATRAUMATIC, NORMOCEPHALIC - Eye Exam Eye Exam: Normal appearance. absent: Conjunctival injection, Scleral icterus - ENT Exam ENT Exam: Mucous Membranes Moist, Normal Oropharynx - Respiratory Exam Respiratory Exam: NORMAL BREATHING PATTERN. absent: Accessory Muscle Use, Respiratory Distress - GI/Abdominal Exam GI & Abdominal Exam: Soft, Tenderness (RUQ with deep palpation). absent: Distended - Extremities Exam Extremities exam: Positive for: normal capillary refill. Negative for: calf tenderness, pedal edema - Neurological Exam Neurological exam: Alert, Oriented x3 - Psychiatric Exam Psychiatric exam: Normal Affect, Normal Mood - Skin Skin Exam: Dry, Intact, Normal Color, Warm Results - Vital Signs Recent Vital Signs: Last Vital Signs Temp 97.5 F L 10/28/16 13:00 Pulse 60 10/28/16 13:22 Resp 18 10/28/16 13:22 BP 113/63 10/28/16 13:00 Pulse Ox 96 10/28/16 13:00 - Labs Result Diagrams: 10/28/16 02:35 10/28/16 15:30 Labs: Laboratory Results - last 24 hr 10/28/16 10/28/16 11:35 11:44 Lactate Dehydrogenase 507 Influenza Typ A,B (EIA) Negative for flu a/b Assessment & Plan - Assessment and Plan (Free Text) Assessment: 81M 3 months S/P open cholecystectomy with CBD exploration and T-Tube insertion and subsequent T-tube removal with RUQ and possible choledocolithiasis Currently afebrile, VSS, symptoms resolved CT: 10mm CBD, possible stone in distal CBD No leukocytosis, LFT's wnl Plan: -ERCP with GI tomorrow AM to evaluate/treat choledocholithiasis--further surgical plans pending results -trend CBC/CMP -IVF -Continue antibiotics -Continue analgesice, anti-emetics -CLD and NPO after midnight for ERCP -Continue medical management per primary Thank you for this consult Patient examined and discussed with Dr. Craly Santizo, PGY1 <Des Carroll - Last Filed: 10/29/16 12:43> Meds - Medications Medications: Current Medications Carvedilol (Coreg) 3.125 mg PO Q12H [facility] Last Admin: 10/28/16 23:15 Dose: Not Given Cholecalciferol (Vitamin D) 5,000 iu PO DAILY [facility] Last Admin: 10/29/16 08:47 Dose: Not Given Donepezil HCl (Aricept) 10 mg PO DAILY [facility] Last Admin: 10/29/16 08:44 Dose: Not Given Azithromycin 500 mg/ Sodium (Chloride) 250 mls @ 250 mls/hr IVPB DAILY [facility] Last Admin: 10/29/16 12:30 Dose: 250 mls/hr Piperacillin Sod/Tazobactam (Sod 2.25 gm/ Sodium Chloride) 100 mls @ 100 mls/ hr IVPB Q8 [facility] Last Admin: 10/29/16 08:48 Dose: 100 mls/hr Sodium Chloride (Sodium Chloride 0.9%) 1,000 mls @ 100 mls/hr IV .Q10H [facility] Stop: 10/30/16 02:59 Last Admin: 10/29/16 08:46 Dose: Not Given Potassium Chloride/Dextrose/Sod Cl (Potassium Chl 20 Meq In D5-Ns) 1,000 mls @ 74.257 mls/hr IV .[id number] [facility] Last Admin: 10/29/16 12:29 Dose: 74.257 mls/hr Pantoprazole Sodium (Protonix Ec Tab) 40 mg PO DAILY [facility] Last Admin: 10/29/16 08:47 Dose: Not Given Temazepam (Restoril) 15 mg PO HS [facility] Last Admin: 10/28/16 21:31 Dose: 15 mg Results - Vital Signs Recent Vital Signs: Last Vital Signs Temp 96.5 F L 10/29/16 11:53 Pulse 80 10/29/16 11:53 Resp 16 10/29/16 11:53 BP 135/59 L 10/29/16 11:53 Pulse Ox 100 10/29/16 11:53 - Labs Result Diagrams: 10/29/16 06:45 10/29/16 06:45 Labs: Laboratory Results - last 24 hr 10/28/16 10/28/16 10/28/16 11:35 15:30 15:30 WBC RBC Hgb Hct MCV MCH MCHC RDW Plt Count MPV Neut % (Auto) Lymph % (Auto) [place] % (Auto) Eos % (Auto) Baso % (Auto) Neut # Lymph # [place] # Eos # Baso # PT INR APTT Sodium 138 Potassium 3.5 L Chloride 102 Carbon Dioxide 25 Anion Gap 15 BUN 25 H Creatinine 1.5 Est GFR ( Amer) 54 Est GFR (Non-Af Amer) 45 POC Glucose (mg/dL) Random Glucose 75 Lactic Acid 2.3 H Calcium 8.5 Total Bilirubin 0.6 AST 33 ALT 37 Alkaline Phosphatase 77 Total Protein 5.9 L Albumin 3.0 L Globulin 2.8 Albumin/Globulin Ratio 1.1 Procalcitonin 3.45 H Random Vancomycin 10/28/16 10/28/16 10/29/16 16:18 21:27 06:38 WBC RBC Hgb Hct MCV MCH MCHC RDW Plt Count MPV Neut % (Auto) Lymph % (Auto) [place] % (Auto) Eos % (Auto) Baso % (Auto) Neut # Lymph # [place] # Eos # Baso # PT INR APTT Sodium Potassium Chloride Carbon Dioxide Anion Gap BUN Creatinine Est GFR ( Amer) Est GFR (Non-Af Amer) POC Glucose (mg/dL) 96 133 H 45 L Random Glucose Lactic Acid Calcium Total Bilirubin AST ALT Alkaline Phosphatase Total Protein Albumin Globulin Albumin/Globulin Ratio Procalcitonin Random Vancomycin 10/29/16 10/29/16 10/29/16 06:45 06:45 06:45 WBC 6.8 RBC 3.20 L Hgb 9.9 L Hct 30.6 L MCV 95.7 H MCH 31.0 MCHC 32.4 L RDW 14.3 Plt Count 87 L MPV 10.5 Neut % (Auto) 44.7 L Lymph % (Auto) 42.4 H [place] % (Auto) 10.0 Eos % (Auto) 2.6 Baso % (Auto) 0.3 Neut # 3.1 Lymph # 2.9 [place] # 0.7 Eos # 0.2 Baso # 0.0 PT 12.9 INR 1.1 APTT 24.5 L Sodium 139 Potassium 3.8 Chloride 106 Carbon Dioxide 25 Anion Gap 12 BUN 21 H Creatinine 1.5 Est GFR ( Amer) 54 Est GFR (Non-Af Amer) 45 POC Glucose (mg/dL) Random Glucose 141 H Lactic Acid Calcium 8.3 L Total Bilirubin 0.5 AST 51 ALT 35 Alkaline Phosphatase 70 Total Protein 5.6 L Albumin 2.9 L Globulin 2.7 Albumin/Globulin Ratio 1.1 Procalcitonin Random Vancomycin 10/29/16 06:45 WBC RBC Hgb Hct MCV MCH MCHC RDW Plt Count MPV Neut % (Auto) Lymph % (Auto) [place] % (Auto) Eos % (Auto) Baso % (Auto) Neut # Lymph # [place] # Eos # Baso # PT INR APTT Sodium Potassium Chloride Carbon Dioxide Anion Gap BUN Creatinine Est GFR ( Amer) Est GFR (Non-Af Amer) POC Glucose (mg/dL) Random Glucose Lactic Acid Calcium Total Bilirubin AST ALT Alkaline Phosphatase Total Protein Albumin Globulin Albumin/Globulin Ratio Procalcitonin Random Vancomycin 5.7 Attending/Attestation - Attestation I have personally seen and examined this patient.: Yes I have fully participated in the care of the patient.: Yes I have reviewed all pertinent clinical information: Yes Notes (Text): 10/29/16 12:42 Pt was seen and examined at bedside on 10/28/16 Agree with above note and assessment Pt with abdominal pain and retained CBD sludge and stone Pt would need GI consult and ERCP CT scan reviewed Labs reviewed C.w current mx Plan d.w pt and PMD in detail.
--- NOTE | 2016-10-28 15:38 | RAD ---
HISTORY: SOB COMPARISON: Comparison chest 10/04/2016 comparison also made with CT scan abdomen pelvis 10/28/2016 which imaged both lung bases. FINDINGS: LUNGS: Suspect minor bibasilar atelectasis. Right paratracheal density felt to be ectatic great vessels. Mild hyperinflation. Rule out chronic changes of COPD PLEURA: No significant pleural effusion identified, no pneumothorax apparent. CARDIOVASCULAR: Mitral valve calcification. OSSEOUS STRUCTURES: No significant abnormalities. VISUALIZED UPPER ABDOMEN: Normal. OTHER FINDINGS: None. IMPRESSION: Mild bibasilar atelectasis. Mild hyperinflation ; rule out chronic changes of COPD.
[2016-10-28 15:49] LABS: ALB/GLOB RATIO 1.1 (1.0-2.1); BILIRUBIN,TOTAL 0.6 mg/dl (0.2-1.3); CALCIUM 8.5 mg/dL (8.4-10.2); POTASSIUM 3.5 MMOL/L (3.6-5.0); TOTAL PROTEIN 5.9 G/DL (6.3-8.2)
--- NOTE | 2016-10-28 23:51 | CARD ---
APPROVED REPORT EKG Measurement Heart [id number] <Conclusion> Normal sinus rhythm Low voltage QRS Possible Inferior infarct, age undetermined Abnormal ECG
[2016-10-29] MEDS ORDERED: POTASSIUM CHLORIDE IV SCH (01:45)
[2016-10-29] MEDS ORDERED: Potassium Chl 20 mEq in NS 1,000 ML IV SCH (01:45)
[2016-10-29] MEDS ORDERED: POTASSIUM CHL IV SCH (01:45)
[2016-10-29] MEDS ORDERED: NS IV SCH (01:45)
[2016-10-29] MEDS ORDERED: Dextrose 50% SYRINGE Inj (50 ml) IVP ONE (06:47)
[2016-10-29 07:17] LABS: BASO % 0.3 % (0.0-2.0); EOS # 0.2 K/uL (0.0-0.7); EOS % 2.6 % (0.0-4.0); HEMATOCRIT 30.6 % (35.0-51.0); LYMPH # 2.9 K/uL (1.0-4.3); LYMPH % 42.4 % (20.0-40.0); MEAN CELL VOLUME 95.7 fl (80.0-94.0); MEAN CORPUSCULAR HGB CONC 32.4 g/dL (33.0-37.0); MEAN PLATELET VOLUME 10.5 fl (7.2-11.7); MONO # 0.7 K/uL (0.0-0.8); NEUT # 3.1 K/uL (1.8-7.0); NEUT % 44.7 % (50.0-75.0); RED CELL DISTRIBUTION WIDTH 14.3 % (11.5-14.5); WHITE BLOOD COUNT 6.8 K/uL (4.8-10.8)
[2016-10-29 07:30] LABS: ALB/GLOB RATIO 1.1 (1.0-2.1); BILIRUBIN,TOTAL 0.5 mg/dl (0.2-1.3); CALCIUM 8.3 mg/dL (8.4-10.2); POTASSIUM 3.8 MMOL/L (3.6-5.0); TOTAL PROTEIN 5.6 G/DL (6.3-8.2)
[2016-10-29 07:44] LABS: PARTIAL THROMBOPLASTIN TIME 24.5 Seconds (25.6-37.1)
[2016-10-29] MEDS: Sodium Chloride 0.9% 1,000 ML IV SCH ×2 (08:46→16:42)
[2016-10-29] MEDS: Pantoprazole 40 mg EC Tab PO SCH ×2 (08:47→12:58)
[2016-10-29] MEDS ORDERED: Pantoprazole 40 mg EC Tab PO SCH (09:00)
--- NOTE | 2016-10-29 09:18 | CP.PCM.PN ---
<France Santizo - Last Filed: 10/29/16 09:18> Subjective - Date & Time of Evaluation Date of Evaluation: 10/29/16 Time of Evaluation: 07:10 - Subjective Subjective: Pt s/e at bedside this AM. NAEO. Patient states that he still has some pain in the RUQ but no nausea, vomiting, diarrhea, fevers, or any other symptoms. Objective - Vital Signs/Intake and Output Vital Signs (last 24 hours): Temp Pulse Resp BP Pulse Ox 97.3 F L 57 L 18 130/67 98 10/29/16 08:32 10/29/16 08:32 10/29/16 08:32 10/29/16 08:32 10/29/16 08:32 - Medications Medications: Current Medications Carvedilol (Coreg) 3.125 mg PO Q12H [facility] Last Admin: 10/28/16 23:15 Dose: Not Given Cholecalciferol (Vitamin D) 5,000 iu PO DAILY [facility] Last Admin: 10/29/16 08:47 Dose: Not Given Donepezil HCl (Aricept) 10 mg PO DAILY [facility] Last Admin: 10/29/16 08:44 Dose: Not Given Azithromycin 500 mg/ Sodium (Chloride) 250 mls @ 250 mls/hr IVPB DAILY [facility] Last Admin: 10/28/16 15:11 Dose: 250 mls/hr Piperacillin Sod/Tazobactam (Sod 2.25 gm/ Sodium Chloride) 100 mls @ 100 mls/ hr IVPB Q8 [facility] Last Admin: 10/29/16 08:48 Dose: 100 mls/hr Potassium Chloride/Sodium Chloride (Potassium Chl 20 Meq In Ns) 1,000 mls @ 99.01 mls/hr IV .Q10H6M [facility] Stop: 10/29/16 10:16 Last Admin: 10/29/16 02:00 Dose: 99.01 mls/hr Sodium Chloride (Sodium Chloride 0.9%) 1,000 mls @ 100 mls/hr IV .Q10H [facility] Stop: 10/30/16 02:59 Last Admin: 10/29/16 08:46 Dose: Not Given Potassium Chloride/Dextrose/Sod Cl (Potassium Chl 20 Meq In D5-Ns) 1,000 mls @ 74.257 mls/hr IV .[id number] [facility] Pantoprazole Sodium (Protonix Ec Tab) 40 mg PO DAILY [facility] Last Admin: 10/29/16 08:47 Dose: Not Given Temazepam (Restoril) 15 mg PO HS [facility] Last Admin: 10/28/16 21:31 Dose: 15 mg - Labs Labs: 10/29/16 06:45 10/29/16 06:45 PT 12.9 Seconds (9.8-13.1) 10/29/16 06:45 INR 1.1 (0.9-1.2) 10/29/16 06:45 APTT 24.5 Seconds (25.6-37.1) L 10/29/16 06:45 - Constitutional Appears: Well, Non-toxic, No Acute Distress - Head Exam Head Exam: ATRAUMATIC, NORMOCEPHALIC - Eye Exam Eye Exam: Normal appearance. absent: Conjunctival injection, Scleral icterus - ENT Exam ENT Exam: Mucous Membranes Moist, Normal Oropharynx - Respiratory Exam Respiratory Exam: NORMAL BREATHING PATTERN. absent: Accessory Muscle Use, Respiratory Distress - Cardiovascular Exam Cardiovascular Exam: RRR - GI/Abdominal Exam GI & Abdominal Exam: Soft, Tenderness (mild tenderness to deep palpation in the RUQ). absent: Distended, Mass, Rebound - Extremities Exam Extremities Exam: absent: Calf Tenderness, Pedal Edema, Tenderness - Neurological Exam Neurological Exam: Alert, Awake, Oriented x3 - Psychiatric Exam Psychiatric exam: Normal Affect, Normal Mood - Skin Skin Exam: Dry, Intact, Normal Color, Warm Assessment and Plan - Assessment and Plan (Free Text) Assessment: 81M 3 months S/P open cholecystectomy with CBD exploration and T-Tube insertion and subsequent T-tube removal with RUQ and possible choledocolithiasis Currently afebrile, VSS, persistent mild RUQ pain Worsened anemia and thrombocytopenia this AM LFT's wnl Plan: -ERCP today with GI -trend CBC/CMP -IVF -Continue antibiotics -Continue analgesics, anti-emetics -NPO for ERCP -Continue medical management per primary Discussed with Dr. Carly Santizo, PGY1 <Des Carroll - Last Filed: 11/01/16 22:02> Objective - Vital Signs/Intake and Output Vital Signs (last 24 hours): Temp Pulse Resp BP Pulse Ox 98.2 F 85 18 138/88 98 10/31/16 12:41 10/31/16 12:41 10/31/16 12:41 10/31/16 12:41 10/31/16 12:41 - Labs Labs: 10/31/16 05:30 10/31/16 05:30 PT 12.9 Seconds (9.8-13.1) 10/29/16 06:45 INR 1.1 (0.9-1.2) 10/29/16 06:45 APTT 24.5 Seconds (25.6-37.1) L 10/29/16 06:45 Attending/Attestation - Attestation I have personally seen and examined this patient.: Yes I have fully participated in the care of the patient.: Yes I have reviewed all pertinent clinical information, including history, physical exam and plan: Yes Notes (Text): 11/01/16 22:00 Pt was seen and examined at bedside on 10/29/16 Agree with above note and assessment Pt with CBD stone s/p ERCP LFT's withing normal limit c.w liquid diet Repeat LFTs and Lipase Plan d.w pt in detail Risk and benefit explained in detail.
--- NOTE | 2016-10-29 09:43 | CP.PCM.CON ---
<Nita Rodriguez - Last Filed: 10/29/16 09:45> History of Present Illness - History of Present Illness History of Present Illness: Gastroenterology Fellow/PGY4 Consult Note 81 year old male with history of Dementia, Diabetes, Hypertension, Hyperlipidemia, CKD Stage 3 presenting with abdominal pain and weakness. History of sepsis secondary to cholangitis with failed ERCP and percutaneous transhepatic cholangiograpy status post open cholecystectomy, intraoperative cholangiogram, removal of mid CBD stone and sludge, 16F T tube placement, and evacuation of a 300cc hemoperitoneum on 07/17/16. Patient oriented to person and time. at bedside notes T ube had been slowing coming out since late August with previous notes of appropriate tube output and a cholangiogram performed showed Tube with good flow and no filling defects. Recent discharge after complete dislodgement of T tube and CT A/P showing extrahepatic CBD dilatation and choledocholithiasis. notes right upper abdomen pain, fever, nausea, chills, weakness, and tremors for the last three days. One episode of food vomitus prior to admission. Tolerating clear liquids yesterday and abdominal pain unchanged. Denies diarrhea, melena, hematochezia, yellowing of skin or eyes, or pruritis. Family- denies colon cancer Social- denies tobacco, alcohol, illicit drug use Surgery-open cholecystectomy with Tube placement 07/17/16 Review of Systems - Review of Systems Review of Systems: Unable to complete 12-point review of systems with history of Dementia Past Patient History - Infectious Disease Hx of Infectious Diseases: None - Tetanus Immunizations Tetanus Immunization: Unknown - Past Medical History & Family History Past Medical History?: Yes - Past Social History Smoking Status: Never Smoked - CARDIAC Hx Hypercholesterolemia: Yes Hx Hypertension: Yes - PULMONARY Hx Respiratory Disorders: No - NEUROLOGICAL Hx Dementia: Yes - HEENT Other/Comment: [place] - RENAL Hx Chronic Kidney Disease: No - ENDOCRINE/METABOLIC Hx Diabetes Mellitus Type 1: Yes Hx Hypothyroidism: Yes - HEMATOLOGICAL/ONCOLOGICAL Hx AIDS: No Hx Anemia: Yes Hx Human Immunodeficiency Virus (HIV): No - INTEGUMENTARY Hx Dermatological Problems: No - MUSCULOSKELETAL/RHEUMATOLOGICAL Hx Falls: No - GASTROINTESTINAL Hx Gall Bladder Disease: Yes Hx Gastritis: Yes - GENITOURINARY/GYNECOLOGICAL Hx Genitourinary Disorders: Yes - PSYCHIATRIC Hx Substance Use: No - SURGICAL HISTORY Hx Cholecystectomy: Yes - ANESTHESIA Hx Anesthesia: Yes Hx Anesthesia Reactions: No Hx Malignant Hyperthermia: No Meds Allergies/Adverse Reactions: Allergies Allergy/AdvReac Type Severity Reaction Status Date / Time No Known Allergies Allergy Verified 09/01/16 16:10 - Medications Medications: Current Medications Carvedilol (Coreg) 3.125 mg PO Q12H [facility] Last Admin: 10/28/16 23:15 Dose: Not Given Cholecalciferol (Vitamin D) 5,000 iu PO DAILY [facility] Last Admin: 10/29/16 08:47 Dose: Not Given Donepezil HCl (Aricept) 10 mg PO DAILY [facility] Last Admin: 10/29/16 08:44 Dose: Not Given Azithromycin 500 mg/ Sodium (Chloride) 250 mls @ 250 mls/hr IVPB DAILY [facility] Last Admin: 10/28/16 15:11 Dose: 250 mls/hr Piperacillin Sod/Tazobactam (Sod 2.25 gm/ Sodium Chloride) 100 mls @ 100 mls/ hr IVPB Q8 [facility] Last Admin: 10/29/16 08:48 Dose: 100 mls/hr Potassium Chloride/Sodium Chloride (Potassium Chl 20 Meq In Ns) 1,000 mls @ 99.01 mls/hr IV .Q10H6M [facility] Stop: 10/29/16 10:16 Last Admin: 10/29/16 02:00 Dose: 99.01 mls/hr Sodium Chloride (Sodium Chloride 0.9%) 1,000 mls @ 100 mls/hr IV .Q10H [facility] Stop: 10/30/16 02:59 Last Admin: 10/29/16 08:46 Dose: Not Given Potassium Chloride/Dextrose/Sod Cl (Potassium Chl 20 Meq In D5-Ns) 1,000 mls @ 74.257 mls/hr IV .[id number] [facility] Pantoprazole Sodium (Protonix Ec Tab) 40 mg PO DAILY [facility] Last Admin: 10/29/16 08:47 Dose: Not Given Temazepam (Restoril) 15 mg PO HS [facility] Last Admin: 10/28/16 21:31 Dose: 15 mg Physical Exam - Constitutional Appears: Non-toxic, No Acute Distress - Head Exam Head Exam: ATRAUMATIC, NORMOCEPHALIC - Eye Exam Eye Exam: EOMI, PERRL Pupil Exam: NORMAL ACCOMODATION, PERRL. absent: Miosis, Mydriatic - ENT Exam ENT Exam: Mucous Membranes Moist, Normal Oropharynx - Neck Exam Neck exam: Positive for: Full Rom, Normal Inspection - Respiratory Exam Respiratory Exam: Clear to Auscultation Bilateral. absent: Rales, Rhonchi, Wheezes - Cardiovascular Exam Cardiovascular Exam: RRR, +S1, +S2. absent: Gallop, Rubs - GI/Abdominal Exam GI & Abdominal Exam: Normal Bowel Sounds, Soft, Tenderness. absent: Distended, Firm, Guarding, Organomegaly, Rebound, Rigid Additional comments: B/L UQ tenderness to palpation - Extremities Exam Extremities exam: Positive for: full ROM. Negative for: pedal edema - Neurological Exam Neurological exam: Alert, Oriented x3 - Psychiatric Exam Psychiatric exam: Normal Affect, Normal Mood - Skin Skin Exam: Dry, Intact, Normal Color, Warm Results - Vital Signs Recent Vital Signs: Last Vital Signs Temp 97.3 F L 10/29/16 08:32 Pulse 57 L 10/29/16 08:32 Resp 18 10/29/16 08:32 BP 130/67 10/29/16 08:32 Pulse Ox 98 10/29/16 08:32 - Labs Result Diagrams: 10/29/16 06:45 10/29/16 06:45 Labs: Laboratory Results - last 24 hr 10/28/16 10/28/16 10/28/16 11:35 11:35 11:44 WBC RBC Hgb Hct MCV MCH MCHC RDW Plt Count MPV Neut % (Auto) Lymph % (Auto) Ogle % (Auto) Eos % (Auto) Baso % (Auto) Neut # Lymph # Ogle # Eos # Baso # PT INR APTT Sodium Potassium Chloride Carbon Dioxide Anion Gap BUN Creatinine Est GFR ( Amer) Est GFR (Non-Af Amer) POC Glucose (mg/dL) Random Glucose Lactic Acid Calcium Total Bilirubin AST ALT Alkaline Phosphatase Lactate Dehydrogenase 507 Total Protein Albumin Globulin Albumin/Globulin Ratio Procalcitonin 3.45 H Random Vancomycin Influenza Typ A,B (EIA) Negative for flu a/b 10/28/16 10/28/16 10/28/16 15:30 15:30 16:18 WBC RBC Hgb Hct MCV MCH MCHC RDW Plt Count MPV Neut % (Auto) Lymph % (Auto) Ogle % (Auto) Eos % (Auto) Baso % (Auto) Neut # Lymph # Ogle # Eos # Baso # PT INR APTT Sodium 138 Potassium 3.5 L Chloride 102 Carbon Dioxide 25 Anion Gap 15 BUN 25 H Creatinine 1.5 Est GFR ( Amer) 54 Est GFR (Non-Af Amer) 45 POC Glucose (mg/dL) 96 Random Glucose 75 Lactic Acid 2.3 H Calcium 8.5 Total Bilirubin 0.6 AST 33 ALT 37 Alkaline Phosphatase 77 Lactate Dehydrogenase Total Protein 5.9 L Albumin 3.0 L Globulin 2.8 Albumin/Globulin Ratio 1.1 Procalcitonin Random Vancomycin Influenza Typ A,B (EIA) 10/28/16 10/29/16 10/29/16 21:27 06:38 06:45 WBC 6.8 RBC 3.20 L Hgb 9.9 L Hct 30.6 L MCV 95.7 H MCH 31.0 MCHC 32.4 L RDW 14.3 Plt Count 87 L MPV 10.5 Neut % (Auto) 44.7 L Lymph % (Auto) 42.4 H Ogle % (Auto) 10.0 Eos % (Auto) 2.6 Baso % (Auto) 0.3 Neut # 3.1 Lymph # 2.9 Ogle # 0.7 Eos # 0.2 Baso # 0.0 PT INR APTT Sodium Potassium Chloride Carbon Dioxide Anion Gap BUN Creatinine Est GFR ( Amer) Est GFR (Non-Af Amer) POC Glucose (mg/dL) 133 H 45 L Random Glucose Lactic Acid Calcium Total Bilirubin AST ALT Alkaline Phosphatase Lactate Dehydrogenase Total Protein Albumin Globulin Albumin/Globulin Ratio Procalcitonin Random Vancomycin Influenza Typ A,B (EIA) 10/29/16 10/29/16 10/29/16 06:45 06:45 06:45 WBC RBC Hgb Hct MCV MCH MCHC RDW Plt Count MPV Neut % (Auto) Lymph % (Auto) Ogle % (Auto) Eos % (Auto) Baso % (Auto) Neut # Lymph # Ogle # Eos # Baso # PT 12.9 INR 1.1 APTT 24.5 L Sodium 139 Potassium 3.8 Chloride 106 Carbon Dioxide 25 Anion Gap 12 BUN 21 H Creatinine 1.5 Est GFR ( Amer) 54 Est GFR (Non-Af Amer) 45 POC Glucose (mg/dL) Random Glucose 141 H Lactic Acid Calcium 8.3 L Total Bilirubin 0.5 AST 51 ALT 35 Alkaline Phosphatase 70 Lactate Dehydrogenase Total Protein 5.6 L Albumin 2.9 L Globulin 2.7 Albumin/Globulin Ratio 1.1 Procalcitonin Random Vancomycin 5.7 Influenza Typ A,B (EIA) Assessment & Plan - Assessment and Plan (Free Text) Assessment: 81 year old male with history of Dementia, Diabetes, Hypertension, Hyperlipidemia, CKD Stage 3 presenting with abdominal pain and weakness. History of sepsis secondary to cholangitis with failed ERCP and percutaneous transhepatic cholangiography status post open cholecystectomy, intraoperative cholangiogram, removal of mid CBD stone and sludge, 16F T tube placement, and evacuation of a 300cc hemoperitoneum on 07/17/16. Accidental dislodgement of T tube end of September. Active treatment of choledocholithiasis. Plan: >NPO >ERCP today >monitor LFTs >consent obtained from on chart >supportive care: IVFs, pain control, antiemetics >further recommendations post-ERCP <Rudy De Jesus - Last Filed: 10/29/16 10:05> Meds - Medications Medications: Current Medications Carvedilol (Coreg) 3.125 mg PO Q12H [facility] Last Admin: 10/28/16 23:15 Dose: Not Given Cholecalciferol (Vitamin D) 5,000 iu PO DAILY [facility] Last Admin: 10/29/16 08:47 Dose: Not Given Donepezil HCl (Aricept) 10 mg PO DAILY [facility] Last Admin: 10/29/16 08:44 Dose: Not Given Azithromycin 500 mg/ Sodium (Chloride) 250 mls @ 250 mls/hr IVPB DAILY [facility] Last Admin: 10/28/16 15:11 Dose: 250 mls/hr Piperacillin Sod/Tazobactam (Sod 2.25 gm/ Sodium Chloride) 100 mls @ 100 mls/ hr IVPB Q8 [facility] Last Admin: 10/29/16 08:48 Dose: 100 mls/hr Potassium Chloride/Sodium Chloride (Potassium Chl 20 Meq In Ns) 1,000 mls @ 99.01 mls/hr IV .Q10H6M [facility] Stop: 10/29/16 10:16 Last Admin: 10/29/16 02:00 Dose: 99.01 mls/hr Sodium Chloride (Sodium Chloride 0.9%) 1,000 mls @ 100 mls/hr IV .Q10H [facility] Stop: 10/30/16 02:59 Last Admin: 10/29/16 08:46 Dose: Not Given Potassium Chloride/Dextrose/Sod Cl (Potassium Chl 20 Meq In D5-Ns) 1,000 mls @ 74.257 mls/hr IV .[id number] [facility] Pantoprazole Sodium (Protonix Ec Tab) 40 mg PO DAILY [facility] Last Admin: 10/29/16 08:47 Dose: Not Given Temazepam (Restoril) 15 mg PO HS [facility] Last Admin: 10/28/16 21:31 Dose: 15 mg Results - Vital Signs Recent Vital Signs: Last Vital Signs Temp 96.8 F L 10/29/16 09:51 Pulse 54 L 10/29/16 09:51 Resp 18 10/29/16 09:51 BP 131/56 L 10/29/16 09:51 Pulse Ox 98 10/29/16 09:51 - Labs Result Diagrams: 10/29/16 06:45 10/29/16 06:45 Labs: Laboratory Results - last 24 hr 10/28/16 10/28/16 10/28/16 11:35 11:35 11:44 WBC RBC Hgb Hct MCV MCH MCHC RDW Plt Count MPV Neut % (Auto) Lymph % (Auto) Ogle % (Auto) Eos % (Auto) Baso % (Auto) Neut # Lymph # Ogle # Eos # Baso # PT INR APTT Sodium Potassium Chloride Carbon Dioxide Anion Gap BUN Creatinine Est GFR ( Amer) Est GFR (Non-Af Amer) POC Glucose (mg/dL) Random Glucose Lactic Acid Calcium Total Bilirubin AST ALT Alkaline Phosphatase Lactate Dehydrogenase 507 Total Protein Albumin Globulin Albumin/Globulin Ratio Procalcitonin 3.45 H Random Vancomycin Influenza Typ A,B (EIA) Negative for flu a/b 10/28/16 10/28/16 10/28/16 15:30 15:30 16:18 WBC RBC Hgb Hct MCV MCH MCHC RDW Plt Count MPV Neut % (Auto) Lymph % (Auto) Ogle % (Auto) Eos % (Auto) Baso % (Auto) Neut # Lymph # Ogle # Eos # Baso # PT INR APTT Sodium 138 Potassium 3.5 L Chloride 102 Carbon Dioxide 25 Anion Gap 15 BUN 25 H Creatinine 1.5 Est GFR ( Amer) 54 Est GFR (Non-Af Amer) 45 POC Glucose (mg/dL) 96 Random Glucose 75 Lactic Acid 2.3 H Calcium 8.5 Total Bilirubin 0.6 AST 33 ALT 37 Alkaline Phosphatase 77 Lactate Dehydrogenase Total Protein 5.9 L Albumin 3.0 L Globulin 2.8 Albumin/Globulin Ratio 1.1 Procalcitonin Random Vancomycin Influenza Typ A,B (EIA) 10/28/16 10/29/16 10/29/16 21:27 06:38 06:45 WBC 6.8 RBC 3.20 L Hgb 9.9 L Hct 30.6 L MCV 95.7 H MCH 31.0 MCHC 32.4 L RDW 14.3 Plt Count 87 L MPV 10.5 Neut % (Auto) 44.7 L Lymph % (Auto) 42.4 H Ogle % (Auto) 10.0 Eos % (Auto) 2.6 Baso % (Auto) 0.3 Neut # 3.1 Lymph # 2.9 Ogle # 0.7 Eos # 0.2 Baso # 0.0 PT INR APTT Sodium Potassium Chloride Carbon Dioxide Anion Gap BUN Creatinine Est GFR ( Amer) Est GFR (Non-Af Amer) POC Glucose (mg/dL) 133 H 45 L Random Glucose Lactic Acid Calcium Total Bilirubin AST ALT Alkaline Phosphatase Lactate Dehydrogenase Total Protein Albumin Globulin Albumin/Globulin Ratio Procalcitonin Random Vancomycin Influenza Typ A,B (EIA) 10/29/16 10/29/16 10/29/16 06:45 06:45 06:45 WBC RBC Hgb Hct MCV MCH MCHC RDW Plt Count MPV Neut % (Auto) Lymph % (Auto) Ogle % (Auto) Eos % (Auto) Baso % (Auto) Neut # Lymph # Ogle # Eos # Baso # PT 12.9 INR 1.1 APTT 24.5 L Sodium 139 Potassium 3.8 Chloride 106 Carbon Dioxide 25 Anion Gap 12 BUN 21 H Creatinine 1.5 Est GFR ( Amer) 54 Est GFR (Non-Af Amer) 45 POC Glucose (mg/dL) Random Glucose 141 H Lactic Acid Calcium 8.3 L Total Bilirubin 0.5 AST 51 ALT 35 Alkaline Phosphatase 70 Lactate Dehydrogenase Total Protein 5.6 L Albumin 2.9 L Globulin 2.7 Albumin/Globulin Ratio 1.1 Procalcitonin Random Vancomycin 5.7 Influenza Typ A,B (EIA) Attending/Attestation - Attestation I have personally seen and examined this patient.: Yes I have fully participated in the care of the patient.: Yes I have reviewed all pertinent clinical information: Yes Notes (Text): 10/29/16 10:03 81 year old male with h/o Dementia, DM, HTN, HLD, CKD, cholelithiasis, choledocholithiasis, open cholecystectomy, PTC, T tube now admitted with recurrent abdominal pain with CT evidence of persistent choledocholithiasis. 1. Choledocholithiasis Plan: -recommend ERCP today -NPO -monitor daily lfts -risks/benefits/alternatives discussed with patient and family -supportive care -continue antibiotics
[2016-10-29] MEDS ORDERED: Dextrose 5%/0.45% NS 500 ML IV ONE (09:50)
[2016-10-29] MEDS ORDERED: Indomethacin 50 MG Suppository PR ONE (10:00)
[2016-10-29] MEDS ORDERED: Dextrose 5%/0.45% NS 1,000 ML IV ONE (10:02)
[2016-10-29] MEDS: Potassium Chl 20 mEq in D5-NS 1,000 ML IV SCH ×2 (12:29→22:01)
[2016-10-29] MEDS: Azithromycin 500 MG in Sodium Chloride 0.9% 250 ML IVPB SCH (12:30)
--- NOTE | 2016-10-29 15:20 | CP.PCM.PN ---
Subjective - Date & Time of Evaluation Date of Evaluation: 10/29/16 Time of Evaluation: 13:30 - Subjective Subjective: Pt seen post ERCP Liquid dit started and pt is tolerating diet no fever no N/V minimal rifgt abd discomfort denies CP no SOB at bedside , discussed test results and treatment plan with pt and - discussed need to ff up with GI as outpt Objective - Vital Signs/Intake and Output Vital Signs (last 24 hours): Temp Pulse Resp BP Pulse Ox 96.5 F L 80 16 135/59 L 100 10/29/16 11:53 10/29/16 11:53 10/29/16 11:53 10/29/16 11:53 10/29/16 11:53 Intake and Output: 10/29/16 10/29/16 06:59 18:59 Intake Total 500 Balance 500 - Medications Medications: Current Medications Carvedilol (Coreg) 3.125 mg PO Q12H [facility] Last Admin: 10/29/16 12:54 Dose: Not Given Cholecalciferol (Vitamin D) 5,000 iu PO DAILY [facility] Last Admin: 10/29/16 08:47 Dose: Not Given Donepezil HCl (Aricept) 10 mg PO DAILY [facility] Last Admin: 10/29/16 08:44 Dose: Not Given Azithromycin 500 mg/ Sodium (Chloride) 250 mls @ 250 mls/hr IVPB DAILY [facility] Last Admin: 10/29/16 12:30 Dose: 250 mls/hr Piperacillin Sod/Tazobactam (Sod 2.25 gm/ Sodium Chloride) 100 mls @ 100 mls/ hr IVPB Q8 [facility] Last Admin: 10/29/16 08:48 Dose: 100 mls/hr Sodium Chloride (Sodium Chloride 0.9%) 1,000 mls @ 100 mls/hr IV .Q10H [facility] Stop: 10/30/16 02:59 Last Admin: 10/29/16 08:46 Dose: Not Given Potassium Chloride/Dextrose/Sod Cl (Potassium Chl 20 Meq In D5-Ns) 1,000 mls @ 74.257 mls/hr IV .[id number] [facility] Last Admin: 10/29/16 12:29 Dose: 74.257 mls/hr Pantoprazole Sodium (Protonix Ec Tab) 40 mg PO DAILY [facility] Last Admin: 10/29/16 12:58 Dose: 40 mg Temazepam (Restoril) 15 mg PO HS [facility] Last Admin: 10/28/16 21:31 Dose: 15 mg - Labs Labs: 10/29/16 06:45 10/29/16 06:45 PT 12.9 Seconds (9.8-13.1) 10/29/16 06:45 INR 1.1 (0.9-1.2) 10/29/16 06:45 APTT 24.5 Seconds (25.6-37.1) L 10/29/16 06:45 - Constitutional Appears: No Acute Distress, Chronically Ill - Head Exam Head Exam: NORMAL INSPECTION, NORMOCEPHALIC - Eye Exam Eye Exam: EOMI, Normal appearance Pupil Exam: NORMAL ACCOMODATION - ENT Exam ENT Exam: Mucous Membranes Moist, Normal External Ear Exam - Neck Exam Neck Exam: Full ROM. absent: Meningismus - Respiratory Exam Respiratory Exam: Rhonchi, NORMAL BREATHING PATTERN. absent: Wheezes, Respiratory Distress - Cardiovascular Exam Cardiovascular Exam: REGULAR RHYTHM, +S1, +S2 - GI/Abdominal Exam GI & Abdominal Exam: Soft, Tenderness (minimal Right abd tenderness), Normal Bowel Sounds - Extremities Exam Extremities Exam: Full ROM, Normal Capillary Refill. absent: Calf Tenderness - Back Exam Back Exam: Full ROM, NORMAL INSPECTION. absent: CVA tenderness (L), CVA tenderness (R), paraspinal tenderness - Neurological Exam Neurological Exam: Alert, Awake, CN II-XII Intact, Oriented x3 Neuro motor strength exam: Left Upper Extremity: 5, Right Upper Extremity: 5, Left Lower Extremity: 5, Right Lower Extremity: 5 - Psychiatric Exam Psychiatric exam: Normal Affect, Normal Mood - Skin Skin Exam: Dry, Normal Color, Warm Assessment and Plan - Assessment and Plan (Free Text) Assessment: 81 y/o male with PMHx significant for HTN, HLD, and dementia who had Cholangitis s/p Cholecystectomy with Intra-op Cholangiogram and T Tube placement after failed ERCP in July 2016 . He was admitted to our hospital one month ago b/c his T Tube was accidentally pulled out -T tube was removed. He came in [facility] for the last couple of days the patient has had a decreased appetite and feeling weak. The patient states that he had a low grade fever last night of 100.5, denies any chill or night sweats. He has also has had a cough x 4 days with nasal congestion. Denies any constipation or diarrhea. Pt has had several episodes non bloody vomits. 1) Sepsis of unclear etiology prob sec to Biliary Infection r/o Pneumonia - Pt had Fever, sl cough, multiple recent hospitalizations - also with right sided abd pain - Fever of 102 in the ER - WBC of 9.2 w/ a left shift on admission, lactic acid 2.3, elevated Procalcitonin - IV Antibiotics: Azithromycin daily, Zosyn Q8, Vancomycin one dose given in ER -F/u: Mycoplama, Legionella AG, Blood culture, Urine culture, Sputum culture - Influenza negative - GI and Surgery consulted 2) Choledocholithiasis s/p ERCP, Removal of Calculi, Sphincterotomy and placement of Stent - Surgery has been consulted- discussed case with Dr Jalloh -CT : Billiary ductal dilation w/ possible stone in distal common bile duct. 9 mm round density in region of common bile duct. -GI Dr De Jesus consulted- Pt underwent ERCP this am - start Clear liquid diet - rpt LFTs in am 3) DM2 - - Accucheck with low coverage 4. CKD stage III renally dose medications cont to monitor 5. HTN controlled -cont Coreg Prophylaxis Lovenox - restart in am
[2016-10-29] MEDS: Insulin Lispro (humaLOG) 100 Units/ml Inj SC SCH ×2 (16:45→22:01)
[2016-10-30] MEDS: Insulin Lispro (humaLOG) 100 Units/ml Inj SC SCH ×4 (06:37→22:06)
--- NOTE | 2016-10-30 07:38 | CP.PCM.PN ---
Subjective - Date & Time of Evaluation Date of Evaluation: 10/30/16 Time of Evaluation: 10:00 - Subjective Subjective: Patient seen and evaluated. Feeling much better. Denies any abdominal pain, nausea or vomiting. Hemodynamically stable, afebrile. Tolerating liquid diet. No acute issues overnight Objective - Vital Signs/Intake and Output Vital Signs (last 24 hours): Temp Pulse Resp BP Pulse Ox 97.4 F L 52 L 19 119/67 97 10/30/16 05:00 10/30/16 05:00 10/30/16 05:00 10/30/16 05:00 10/30/16 05:00 Intake and Output: 10/30/16 10/30/16 06:59 18:59 Intake Total 1810 Balance 1810 - Medications Medications: Current Medications Carvedilol (Coreg) 3.125 mg PO Q12H [facility] Last Admin: 10/29/16 22:26 Dose: 3.125 mg Cholecalciferol (Vitamin D) 5,000 iu PO DAILY [facility] Last Admin: 10/29/16 08:47 Dose: Not Given Donepezil HCl (Aricept) 10 mg PO DAILY [facility] Last Admin: 10/29/16 22:00 Dose: 10 mg Azithromycin 500 mg/ Sodium (Chloride) 250 mls @ 250 mls/hr IVPB DAILY [facility] Last Admin: 10/29/16 12:30 Dose: 250 mls/hr Piperacillin Sod/Tazobactam (Sod 2.25 gm/ Sodium Chloride) 100 mls @ 100 mls/ hr IVPB Q8 [facility] Last Admin: 10/30/16 01:08 Dose: 100 mls/hr Potassium Chloride/Dextrose/Sod Cl (Potassium Chl 20 Meq In D5-Ns) 1,000 mls @ 74.257 mls/hr IV .[id number] [facility] Last Admin: 10/29/16 22:01 Dose: 74.257 mls/hr Vancomycin HCl 1 gm/ Sodium (Chloride) 250 mls @ 166.667 mls/hr IVPB DAILY [facility] Insulin Human Lispro (Humalog) 0 units SC ACHS [facility] PRN Reason: Protocol Last Admin: 10/30/16 06:37 Dose: 1 units Pantoprazole Sodium (Protonix Ec Tab) 40 mg PO DAILY [facility] Last Admin: 10/29/16 12:58 Dose: 40 mg Temazepam (Restoril) 15 mg PO HS [facility] Last Admin: 10/29/16 22:02 Dose: 15 mg - Labs Labs: 10/29/16 06:45 10/29/16 06:45 PT 12.9 Seconds (9.8-13.1) 10/29/16 06:45 INR 1.1 (0.9-1.2) 10/29/16 06:45 APTT 24.5 Seconds (25.6-37.1) L 10/29/16 06:45 - Constitutional Appears: Non-toxic, No Acute Distress - Head Exam Head Exam: ATRAUMATIC, NORMAL INSPECTION, NORMOCEPHALIC - Eye Exam Eye Exam: EOMI, Normal appearance, PERRL Pupil Exam: NORMAL ACCOMODATION - ENT Exam ENT Exam: Mucous Membranes Moist, Normal Exam - Neck Exam Neck Exam: Full ROM, Normal Inspection - Respiratory Exam Respiratory Exam: Clear to Ausculation Bilateral, NORMAL BREATHING PATTERN. absent: Rales, Rhonchi, Wheezes - Cardiovascular Exam Cardiovascular Exam: REGULAR RHYTHM, RRR, +S1, +S2. absent: JVD - GI/Abdominal Exam GI & Abdominal Exam: Soft, Normal Bowel Sounds. absent: Distended, Guarding, Tenderness, Rebound - Rectal Exam Rectal Exam: Deferred - Extremities Exam Extremities Exam: Full ROM, Normal Capillary Refill, Normal Inspection. absent : Calf Tenderness, Pedal Edema - Back Exam Back Exam: NORMAL INSPECTION - Neurological Exam Neurological Exam: Alert, Awake, CN II-XII Intact, Oriented x3 - Psychiatric Exam Psychiatric exam: Normal Affect, Normal Mood - Skin Skin Exam: Dry, Intact, Normal Color, Warm Assessment and Plan - Assessment and Plan (Free Text) Assessment: 81 y/o male with PMHx significant for HTN, HLD, and dementia who had Cholangitis s/p Cholecystectomy with Intra-op Cholangiogram and T Tube placement after failed ERCP in July 2016 ,was admitted to our hospital one month ago b/c his T Tube was accidentally pulled out. Subsequently -T tube was removed. He came in [facility] for the last couple of days the patient has had a decreased appetite and feeling weak with low grade fever He has also had cough x 4 days with nasal congestion. CT head showed CBd dilatation with stone presence . Surgery and GI were consulted. He underwent ERCP yesterday with stent placement , sphincterectomy and removal of 4 black pigmented stones. 1. Sepsis prob sec to Biliary Infection Patient presented with fever of 102 ,WBC of 9.2 w/ a left shift on admission, lactic acid 2.3, elevated Procalcitonin CXR showed no pneumonia Continue Zosyn and Zithromax IV vancomycin x 1 dose given in ER 2. Choledocholithiasis s/p ERCP, Removal of Calculi, Sphincterotomy and placement of Stent surgery and GI on consult following Tolerating liquid diet . Will advance to heart healthy diet repeat CMP in Am possible d/c in Am if tolerates diet and remains stable 3.DM2 Accucheck with low coverage 4. CKD stage III renally dose medications cont to monitor 5. HTN controlled cont Coreg 6. Anemia Most likely anemia of chronic disease stable 7.Dementia on aricepot and Restoril for sleep 8. Prophylaxis scd lovenox on hold due to small bleed during ERCP
[2016-10-30 08:03] LABS: BASO % 0.5 % (0.0-2.0); EOS # 0.1 K/uL (0.0-0.7); EOS % 3.3 % (0.0-4.0); HEMATOCRIT 27.2 % (35.0-51.0); LYMPH # 2.1 K/uL (1.0-4.3); LYMPH % 47.4 % (20.0-40.0); MEAN CELL VOLUME 94.7 fl (80.0-94.0); MEAN CORPUSCULAR HEMOGLOBIN 31.4 pg (27.0-31.0); MEAN CORPUSCULAR HGB CONC 33.2 g/dL (33.0-37.0); MEAN PLATELET VOLUME 10.5 fl (7.2-11.7); MONO # 0.4 K/uL (0.0-0.8); MONO % 9.3 % (0.0-10.0); NEUT # 1.7 K/uL (1.8-7.0); NEUT % 39.5 % (50.0-75.0); NRBC % 0.1 % (0.0-0.0); RED CELL DISTRIBUTION WIDTH 13.9 % (11.5-14.5); WHITE BLOOD COUNT 4.3 K/uL (4.8-10.8)
[2016-10-30 08:28] LABS: BILIRUBIN,TOTAL 0.5 mg/dl (0.2-1.3); CALCIUM 7.9 mg/dL (8.4-10.2); POTASSIUM 4.1 MMOL/L (3.6-5.0); TOTAL PROTEIN 5.1 G/DL (6.3-8.2)
--- NOTE | 2016-10-30 08:52 | CP.PCM.PN ---
Addendum entered and electronically signed by Ky Noel DO 10/30/16 16: 14: Surgery will sign off, please reconsult if needed d/w attending Sadie PGY2 Original Note: <Paxton Brandt D - Last Filed: 10/30/16 08:49> Subjective - Date & Time of Evaluation Date of Evaluation: 10/30/16 Time of Evaluation: 06:20 - Subjective Subjective: SURGERY NOTE FOR DR. GUY 81M seen and examined at bedside. Patient denies pain, N/V/F/C. Objective - Vital Signs/Intake and Output Vital Signs (last 24 hours): Temp Pulse Resp BP Pulse Ox 97.8 F 58 L 18 126/66 97 10/30/16 08:00 10/30/16 08:00 10/30/16 08:00 10/30/16 08:00 10/30/16 08:00 Intake and Output: 10/30/16 10/30/16 06:59 18:59 Intake Total 1810 Balance 1810 - Medications Medications: Current Medications Carvedilol (Coreg) 3.125 mg PO Q12H [facility] Last Admin: 10/29/16 22:26 Dose: 3.125 mg Cholecalciferol (Vitamin D) 5,000 iu PO DAILY [facility] Last Admin: 10/29/16 08:47 Dose: Not Given Donepezil HCl (Aricept) 10 mg PO DAILY [facility] Last Admin: 10/29/16 22:00 Dose: 10 mg Azithromycin 500 mg/ Sodium (Chloride) 250 mls @ 250 mls/hr IVPB DAILY [facility] Last Admin: 10/29/16 12:30 Dose: 250 mls/hr Piperacillin Sod/Tazobactam (Sod 2.25 gm/ Sodium Chloride) 100 mls @ 100 mls/ hr IVPB Q8 [facility] Last Admin: 10/30/16 01:08 Dose: 100 mls/hr Potassium Chloride/Dextrose/Sod Cl (Potassium Chl 20 Meq In D5-Ns) 1,000 mls @ 74.257 mls/hr IV .[id number] [facility] Last Admin: 10/29/16 22:01 Dose: 74.257 mls/hr Vancomycin HCl 1 gm/ Sodium (Chloride) 250 mls @ 166.667 mls/hr IVPB DAILY [facility] Insulin Human Lispro (Humalog) 0 units SC ACHS [facility] PRN Reason: Protocol Last Admin: 10/30/16 06:37 Dose: 1 units Pantoprazole Sodium (Protonix Ec Tab) 40 mg PO DAILY [facility] Last Admin: 10/29/16 12:58 Dose: 40 mg Temazepam (Restoril) 15 mg PO HS [facility] Last Admin: 10/29/16 22:02 Dose: 15 mg - Labs Labs: 10/30/16 06:00 10/30/16 06:00 PT 12.9 Seconds (9.8-13.1) 10/29/16 06:45 INR 1.1 (0.9-1.2) 10/29/16 06:45 APTT 24.5 Seconds (25.6-37.1) L 10/29/16 06:45 - Constitutional Appears: Non-toxic, No Acute Distress - Respiratory Exam Respiratory Exam: Clear to Ausculation Bilateral, NORMAL BREATHING PATTERN - Cardiovascular Exam Cardiovascular Exam: REGULAR RHYTHM, +S1, +S2 - GI/Abdominal Exam GI & Abdominal Exam: Soft. absent: Distended, Firm, Guarding, Rigid, Tenderness , Rebound Assessment and Plan - Assessment and Plan (Free Text) Assessment: 81M ERCP with removal of 4 CBD stones LFTs within normal limits this morning - ADAT - cont Abx - continue GI/medical management - Further recs discuss with Dr. Carly Brandt, PGY1 <Des Guy - Last Filed: 11/01/16 22:10> Objective - Vital Signs/Intake and Output Vital Signs (last 24 hours): Temp Pulse Resp BP Pulse Ox 98.2 F 85 18 138/88 98 10/31/16 12:41 10/31/16 12:41 10/31/16 12:41 10/31/16 12:41 10/31/16 12:41 - Labs Labs: 10/31/16 05:30 10/31/16 05:30 PT 12.9 Seconds (9.8-13.1) 10/29/16 06:45 INR 1.1 (0.9-1.2) 10/29/16 06:45 APTT 24.5 Seconds (25.6-37.1) L 10/29/16 06:45 Attending/Attestation - Attestation I have personally seen and examined this patient.: Yes I have fully participated in the care of the patient.: Yes I have reviewed all pertinent clinical information, including history, physical exam and plan: Yes Notes (Text): 11/01/16 22:09 Pt was seen and examined at bedside on 10/30/16 Agree with above note and assessment Pt with retained CBD stone s/p ERCP Pt is improved symptomatically. DC plan Plan d.w pt in detail Risk and benefit explained in detail.
[2016-10-30] MEDS: Azithromycin 500 MG in Sodium Chloride 0.9% 250 ML IVPB SCH (08:58)
[2016-10-30] MEDS: Pantoprazole 40 mg EC Tab PO SCH (09:01)
[2016-10-30] MEDS: Potassium Chl 20 mEq in D5-NS 1,000 ML IV SCH ×2 (10:00→22:51)
[2016-10-31] MEDS: Insulin Lispro (humaLOG) 100 Units/ml Inj SC SCH ×2 (06:29→12:52)
[2016-10-31 07:20] LABS: BASO % 0.5 % (0.0-2.0); EOS # 0.1 K/uL (0.0-0.7); EOS % 2.4 % (0.0-4.0); HEMATOCRIT 31.3 % (35.0-51.0); LYMPH # 2.2 K/uL (1.0-4.3); LYMPH % 42.4 % (20.0-40.0); MEAN CELL VOLUME 95.4 fl (80.0-94.0); MEAN CORPUSCULAR HEMOGLOBIN 30.9 pg (27.0-31.0); MEAN CORPUSCULAR HGB CONC 32.4 g/dL (33.0-37.0); MEAN PLATELET VOLUME 10.9 fl (7.2-11.7); MONO # 0.4 K/uL (0.0-0.8); MONO % 7.6 % (0.0-10.0); NEUT # 2.4 K/uL (1.8-7.0); NEUT % 47.1 % (50.0-75.0); NRBC % 0.1 % (0.0-0.0); RED CELL DISTRIBUTION WIDTH 13.9 % (11.5-14.5); WHITE BLOOD COUNT 5.2 K/uL (4.8-10.8)
[2016-10-31 07:26] LABS: BILIRUBIN,TOTAL 0.5 mg/dl (0.2-1.3); CALCIUM 8.4 mg/dL (8.4-10.2); POTASSIUM 4.9 MMOL/L (3.6-5.0); TOTAL PROTEIN 5.7 G/DL (6.3-8.2)
[2016-10-31] MEDS: Pantoprazole 40 mg EC Tab PO SCH (08:48)
--- NOTE | 2016-10-31 08:52 | CP.PCM.DIS ---
Provider - Provider Date of Admission: 10/28/16 07:24 Attending physician: Christina Szymanski MD Primary care physician: Alejandro Joaquin MD Consults: Surgery consult Gi consult Time Spent in preparation of Discharge (in minutes): 20 Hospital Course - Lab Results Lab Results: Most Recent Lab Values WBC 5.2 K/uL (4.8-10.8) 10/31/16 05:30 RBC 3.28 Mil/uL (4.40-5.90) L 10/31/16 05:30 Hgb 10.1 g/dL (12.0-18.0) L 10/31/16 05:30 Hct 31.3 % (35.0-51.0) L 10/31/16 05:30 MCV 95.4 fl (80.0-94.0) H 10/31/16 05:30 MCH 30.9 pg (27.0-31.0) 10/31/16 05:30 MCHC 32.4 g/dL (33.0-37.0) L 10/31/16 05:30 RDW 13.9 % (11.5-14.5) 10/31/16 05:30 Plt Count 106 K/uL (130-400) L 10/31/16 05:30 MPV 10.9 fl (7.2-11.7) 10/31/16 05:30 Neut % (Auto) 47.1 % (50.0-75.0) L 10/31/16 05:30 Lymph % (Auto) 42.4 % (20.0-40.0) H 10/31/16 05:30 Story % (Auto) 7.6 % (0.0-10.0) 10/31/16 05:30 Eos % (Auto) 2.4 % (0.0-4.0) 10/31/16 05:30 Baso % (Auto) 0.5 % (0.0-2.0) 10/31/16 05:30 Neut # 2.4 K/uL (1.8-7.0) 10/31/16 05:30 Lymph # 2.2 K/uL (1.0-4.3) 10/31/16 05:30 Story # 0.4 K/uL (0.0-0.8) 10/31/16 05:30 Eos # 0.1 K/uL (0.0-0.7) 10/31/16 05:30 Baso # 0.0 K/uL (0.0-0.2) 10/31/16 05:30 Neutrophils % (Manual) 71 % (42-75) 10/28/16 02:35 Band Neutrophils % 8 % (0-2) H 10/28/16 02:35 Lymphocytes % (Manual) 13 % (20-50) L 10/28/16 02:35 Monocytes % (Manual) 8 % (0-10) 10/28/16 02:35 Platelet Estimate Markedly decreased (NORMAL) L 10/28/16 02:35 Hypochromasia (manual) Slight 10/28/16 02:35 Macrocytosis (manual) Slight 10/28/16 02:35 Rouleaux Slight 10/28/16 02:35 PT 12.9 Seconds (9.8-13.1) 10/29/16 06:45 INR 1.1 (0.9-1.2) 10/29/16 06:45 APTT 24.5 Seconds (25.6-37.1) L 10/29/16 06:45 pO2 63 mm/Hg (30-55) H 10/28/16 02:37 VBG pH 7.53 (7.32-7.43) H 10/28/16 02:37 VBG pCO2 33 mmHg (40-60) L 10/28/16 02:37 VBG HCO3 28.8 mmol/L 10/28/16 02:37 VBG Total CO2 28.6 mmol/L (22-28) H 10/28/16 02:37 VBG O2 Sat (Calc) 95.6 % (40-65) H 10/28/16 02:37 VBG Base Excess 5.1 mmol/L (0.0-2.0) H 10/28/16 02:37 VBG Potassium 3.4 mmol/L (3.6-5.2) L 10/28/16 02:37 Sodium 130.0 mmol/L (132-148) L 10/28/16 02:37 Chloride 98.0 mmol/L (98-107) 10/28/16 02:37 Glucose 216 mg/dL (75-110) H 10/28/16 02:37 Lactate 1.2 mmol/L (0.7-2.1) 10/28/16 02:37 FiO2 21.0 % 10/28/16 02:37 Sodium 140 mmol/l (132-148) 10/31/16 05:30 Potassium 4.9 MMOL/L (3.6-5.0) 10/31/16 05:30 Chloride 109 mmol/L (98-107) H 10/31/16 05:30 Carbon Dioxide 24 mmol/L (22-30) 10/31/16 05:30 Anion Gap 12 (10-20) 10/31/16 05:30 BUN 12 mg/dl (9-20) 10/31/16 05:30 Creatinine 1.7 mg/dL (0.8-1.5) H 10/31/16 05:30 Est GFR ( Amer) 47 10/31/16 05:30 Est GFR (Non-Af Amer) 39 10/31/16 05:30 POC Glucose (mg/dL) 223 mg/dL (65-110) H 10/31/16 05:28 Random Glucose 177 mg/dL (75-110) H 10/31/16 05:30 Lactic Acid 2.3 MMOL/L (0.7-2.1) H 10/28/16 15:30 Calcium 8.4 mg/dL (8.4-10.2) 10/31/16 05:30 Total Bilirubin 0.5 mg/dl (0.2-1.3) 10/31/16 05:30 Direct Bilirubin 0.3 mg/ml (0.0-0.4) 10/30/16 06:00 AST 30 U/L (17-59) 10/31/16 05:30 ALT 39 U/L (21-72) 10/31/16 05:30 Alkaline Phosphatase 70 U/L (38-126) 10/31/16 05:30 Lactate Dehydrogenase 507 U/L (313-618) 10/28/16 11:35 Troponin I 0.0460 ng/mL (0.00-0.120) 10/28/16 02:35 Total Protein 5.7 G/DL (6.3-8.2) L 10/31/16 05:30 Albumin 2.9 g/dL (3.5-5.0) L 10/31/16 05:30 Globulin 2.8 gm/dL (2.2-3.9) 10/31/16 05:30 Albumin/Globulin Ratio 1.0 (1.0-2.1) 10/31/16 05:30 Lipase 155 U/L (23-300) 10/30/16 06:00 Procalcitonin 3.45 NG/ML (0.19-0.49) H 10/28/16 11:35 Venous Blood Potassium 3.4 mmol/L (3.6-5.2) L 10/28/16 02:37 Urine Color Yellow (YELLOW) 10/28/16 04:47 Urine Clarity Clear (Clear) 10/28/16 04:47 Urine pH 6.0 (5.0-8.0) 10/28/16 04:47 Ur Specific [place] 1.014 (1.003-1.030) 10/28/16 04:47 Urine Protein 30 mg/dL (NEGATIVE) 10/28/16 04:47 Urine Glucose (UA) 50 mg/dL (Normal) 10/28/16 04:47 Urine Ketones Negative mg/dL (NEGATIVE) 10/28/16 04:47 Urine Blood Negative (NEGATIVE) 10/28/16 04:47 Urine Nitrate Negative (NEGATIVE) 10/28/16 04:47 Urine Bilirubin Negative (NEGATIVE) 10/28/16 04:47 Urine Urobilinogen 0.2-1.0 mg/dL (0.2-1.0) 10/28/16 04:47 Ur Leukocyte Esterase Neg Jessi/uL (Negative) 10/28/16 04:47 Urine RBC (Auto) 1 /hpf (0-3) 10/28/16 04:47 Urine Microscopic WBC 1 /hpf (0-5) 10/28/16 04:47 Random Vancomycin 5.7 ug/mL 10/29/16 06:45 Influenza Typ A,B (EIA) Negative for flu a/b (NEGATIVE) 10/28/16 11:44 Urine Legionella Ag Not detected (Not Detected) 10/28/16 10:00 Mycoplasma pneumon IgM 286 U/mL (<770) 10/28/16 11:35 - Hospital Course Hospital Course: 81 y/o male with PMHx significant for HTN, HLD, and dementia who had Cholangitis s/p Cholecystectomy with Intra-op Cholangiogram and T Tube placement after failed ERCP in July 2016 ,was admitted to our hospital one month ago b/c his T Tube was accidentally pulled out. Subsequently -T tube was removed. He came in [facility] for the last couple of days the patient has had a decreased appetite and feeling weak with low grade fever He has also had cough x 4 days with nasal congestion. CT head showed CBd dilatation with stone presence . Surgery and GI were consulted. He underwent ERCP with stent placement , sphincterectomy and removal of 4 black pigmented stones.Patient post procedure dpoing well, pain resolved.abdomen soft, hemodynamically stable, afebrile, tolerating diet Cleared by GI and surgerty will d/c home omn PO Flagyl and cipro for 5 more days 1. Sepsis prob sec to Biliary Infection Patient presented with fever of 102 ,WBC of 9.2 w/ a left shift on admission, lactic acid 2.3, elevated Procalcitonin CXR showed no pneumonia Received Vanco Zosyn and Zithromax IV Currently afebrile, hemodynamically stable, WBC-wnl Wlill d/c home on 5 more days of Po cipro and Flagyl 2. Choledocholithiasis s/p ERCP, Removal of Calculi, Sphincterotomy and placement of Stent surgery and GI on consult following Tolerated regular diet Continue Cipro and Flagyl Pofor 5 more days Follow up with Dr. De Jesus in 1 week 3.DM2 controlled Accucheck with low coverage resume kelsie emeds, amaryl and insulin upon discharge 4. CKD stage III stable renally dose medications cont to monitor 5. HTN controlled cont Coreg 6. Anemia Most likely anemia of chronic disease stable 7.Dementia on aricept and Restoril for sleep 8. Prophylaxis scd lovenox on hold due to small bleed during ERCP Discharge Exam - Head Exam Head Exam: ATRAUMATIC, NORMAL INSPECTION, NORMOCEPHALIC - Eye Exam Eye Exam: Normal appearance, PERRL Pupil Exam: NORMAL ACCOMODATION - ENT Exam ENT Exam: Mucous Membranes Moist, Normal Exam - Neck Exam Neck exam: Full Rom, Normal Inspection - Respiratory Exam Respiratory Exam: Clear to PA & Lateral, NORMAL BREATHING PATTERN. absent: Rales, Rhonchi, Wheezes - Cardiovascular Exam Cardiovascular Exam: REGULAR RHYTHM, +S1, +S2. absent: JVD - GI/Abdominal Exam GI & Abdominal Exam: Normal Bowel Sounds, Soft. absent: Distended, Guarding, Rebound, Tenderness - Rectal Exam Rectal Exam: Deferred - Extremities Exam Extremities exam: normal capillary refill, normal inspection, pedal pulses present - Back Exam Back exam: NORMAL INSPECTION - Psychiatric Exam Psychiatric exam: Normal Affect - Skin Skin Exam: Dry, Pallor, Warm Discharge Plan - Discharge Medications Prescriptions: Ciprofloxacin [Cipro] 500 mg PO BID #10 tab Metronidazole [Flagyl] 500 mg PO TID #15 tab - Follow Up Plan Condition: STABLE Disposition: HOME/ ROUTINE Patient education suggested?: Yes Instructions: Cholecystitis (DC) Referrals: Alejandro Joaquin [Primary Care Provider] -
--- NOTE | 2016-10-31 09:27 | CP.PCM.PN ---
Subjective - Date & Time of Evaluation Date of Evaluation: 10/31/16 Time of Evaluation: 09:22 - Subjective Subjective: Patient seen and examined, sitting in chair at bedside, appears comfortable. No acute events overnight, he denies abdominal pain, nausea, vomiting, fever/ chills. He does report 3 loose watery bowel movements overnight. He is tolerating PO diet without difficulty. Review of vitals from today shows elevated BP. 12 point review of systems performed, negative aside from mentioned above. Objective - Vital Signs/Intake and Output Vital Signs (last 24 hours): Temp Pulse Resp BP Pulse Ox 97.2 F L 69 20 172/73 H 99 10/31/16 08:54 10/31/16 08:54 10/31/16 08:54 10/31/16 08:54 10/31/16 08:54 - Medications Medications: Current Medications Carvedilol (Coreg) 3.125 mg PO Q12H [facility] Last Admin: 10/30/16 22:53 Dose: 3.125 mg Cholecalciferol (Vitamin D) 5,000 iu PO DAILY [facility] Last Admin: 10/31/16 08:50 Dose: 5,000 iu Donepezil HCl (Aricept) 10 mg PO DAILY [facility] Last Admin: 10/31/16 08:47 Dose: 10 mg Piperacillin Sod/Tazobactam (Sod 2.25 gm/ Sodium Chloride) 100 mls @ 100 mls/ hr IVPB Q8 [facility] Last Admin: 10/31/16 01:13 Dose: 100 mls/hr Potassium Chloride/Dextrose/Sod Cl (Potassium Chl 20 Meq In D5-Ns) 1,000 mls @ 74.257 mls/hr IV .[id number] [facility] Last Admin: 10/30/16 22:51 Dose: 74.257 mls/hr Vancomycin HCl 1 gm/ Sodium (Chloride) 250 mls @ 166.667 mls/hr IVPB DAILY [facility] Last Admin: 10/31/16 08:49 Dose: 166.667 mls/hr Azithromycin 500 mg/ Sodium (Chloride) 250 mls @ 250 mls/hr IVPB DAILY@1000 [facility] Insulin Human Lispro (Humalog) 0 units SC ACHS [facility] PRN Reason: Protocol Last Admin: 10/31/16 06:29 Dose: 2 units Pantoprazole Sodium (Protonix Ec Tab) 40 mg PO DAILY [facility] Last Admin: 10/31/16 08:48 Dose: 40 mg Temazepam (Restoril) 15 mg PO HS [facility] Last Admin: 10/30/16 22:04 Dose: 15 mg - Labs Labs: 10/31/16 05:30 10/31/16 05:30 PT 12.9 Seconds (9.8-13.1) 10/29/16 06:45 INR 1.1 (0.9-1.2) 10/29/16 06:45 APTT 24.5 Seconds (25.6-37.1) L 10/29/16 06:45 - Constitutional Appears: Non-toxic, No Acute Distress - Head Exam Head Exam: NORMAL INSPECTION - Eye Exam Eye Exam: EOMI, Normal appearance - ENT Exam ENT Exam: Mucous Membranes Moist - Respiratory Exam Respiratory Exam: Clear to Ausculation Bilateral - Cardiovascular Exam Cardiovascular Exam: REGULAR RHYTHM, +S1, +S2 - GI/Abdominal Exam GI & Abdominal Exam: Soft, Normal Bowel Sounds Additional comments: non tender to palpation in four quadrants - Extremities Exam Extremities Exam: Normal Inspection - Skin Skin Exam: Dry, Intact, Normal Color, Warm Assessment and Plan - Assessment and Plan (Free Text) Assessment: DM / HTN CKD Sepsis, choledocholithiasis - s/p ERCP with stone extraction, PD stent placement , sphincterotomy Plan: - Diet as tolerated - Pain control - LFTs stable, continue to monitor - Would continue antibiotic therapy to complete 7 day course - Obtain abdominal XR to evaluate for presence of PD stent which at times falls out following procedure - From GI standpoint, if patient tolerating diet, ok to discharge home with subsequent outpatient follow up with Dr. De Jesus. Will sign off case, please reconsult as necessary, thank you.
[2016-10-31] MEDS ORDERED: Azithromycin 500 MG in Sodium Chloride 0.9% 250 ML IVPB SCH (10:00)
[2016-10-31 12:42] VITALS: BP 138/88; PULSE 85; RESP 18; TEMP 98.2; O2SAT 98
== END 2016-10-31 15:00 | disposition home or self-care (01) | DRG 854 ==
LOC: H.ER 01:16 → H.EROBSV 03:07 → OBSVTOIN 07:24 → H.ERHOLD 07:24 → H.TEL 11:58
PROVIDERS: ADMIT Internal Medicine; ATTEND Internal Medicine
PROC: 0F9 Hepatobiliary System and Pancreas, Drainage (ICD-10-PCS; 2016-10-29)
PROC: 0FC98ZZ Extirpation of Matter from Common Bile Duct, Via Natural or Artificial Opening Endoscopic (ICD-10-PCS; 2016-10-29)
PROC: 0FCD8ZZ Extirpation of Matter from Pancreatic Duct, Via Natural or Artificial Opening Endoscopic (ICD-10-PCS; 2016-10-29)
PROC: 0F998ZZ Drainage of Common Bile Duct, Via Natural or Artificial Opening Endoscopic (ICD-10-PCS; principal; 2016-10-29 10:30)
DX: A41.9 Sepsis, unspecified organism (principal); E87.1 Hypo-osmolality and hyponatremia; E11.22 Type 2 diabetes mellitus with diabetic chronic kidney disease; D69.6 Thrombocytopenia, unspecified; E86.0 Dehydration; N18.3 Chronic kidney disease, stage 3 (moderate); F03.90 Unspecified dementia, unspecified severity, without behavioral disturbance, psychotic disturbance, mood disturbance, and anxiety; E03.9 Hypothyroidism, unspecified; E78.00 Pure hypercholesterolemia, unspecified; E78.5 Hyperlipidemia, unspecified; E87.6 Hypokalemia; I12.9 Hypertensive chronic kidney disease with stage 1 through stage 4 chronic kidney disease, or unspecified chronic kidney disease; K57.50 Diverticulosis of both small and large intestine without perforation or abscess without bleeding; K80.50 Calculus of bile duct without cholangitis or cholecystitis without obstruction; K29.70 Gastritis, unspecified, without bleeding; M19.90 Unspecified osteoarthritis, unspecified site; D63.8 Anemia in other chronic diseases classified elsewhere

== ENCOUNTER 2018-02-17 14:39 | Emergency (ER) | payer MEDICARE, MEDICAID ==
[2018-02-17 14:40] VITALS: BMI 31.8
[2018-02-17 15:22] VITALS: TEMP 98
--- NOTE | 2018-02-17 16:41 | US ---
Date of service: 02/17/2018 PROCEDURE: Bilateral lower extremity venous duplex Doppler. HISTORY: b/l leg pain s/p CABG COMPARISON: None available. TECHNIQUE: Bilateral common femoral, superficial femoral, popliteal and posterior tibial veins were evaluated. Flow was assessed with color Doppler, compressibility, assessment of phasic flow and augmentation response. FINDINGS: COMMON FEMORAL VEIN: Right CFV: Unremarkable. Left CFV: Unremarkable. SUPERFICIAL FEMORAL VEIN: Right SFV: Unremarkable. Left SFV: Unremarkable. POPLITEAL VEIN: Right Popliteal: Unremarkable. Left Popliteal: Unremarkable. POSTERIOR TIBIAL VEIN: Right PTV: Unremarkable. Left PTV: Unremarkable. OTHER FINDINGS: None. IMPRESSION: No evidence of deep venous thrombosis.
[2018-02-17 17:02] LABS: BASO % 0.5 % (0.0-2.0); EOS # 0.2 K/uL (0.0-0.7); EOS % 3.1 % (0.0-4.0); HEMOGLOBIN 12.9 g/dL (12.0-18.0); LYMPH % 29.6 % (20.0-40.0); MEAN CELL VOLUME 92.4 fl (80.0-94.0); MEAN CORPUSCULAR HEMOGLOBIN 30.1 pg (27.0-31.0); MEAN CORPUSCULAR HGB CONC 32.6 g/dL (33.0-37.0); MEAN PLATELET VOLUME 9.9 fl (7.2-11.7); MONO # 0.6 K/uL (0.0-0.8); MONO % 8.9 % (0.0-10.0); NEUT # 3.9 K/uL (1.8-7.0); NEUT % 57.9 % (50.0-75.0); RBC 4.29 Mil/uL (4.40-5.90); RED CELL DISTRIBUTION WIDTH 14.6 % (11.5-14.5); WHITE BLOOD COUNT 6.8 K/uL (4.8-10.8)
[2018-02-17 17:12] LABS: ALBUMIN 3.5 g/dL (3.5-5.0); CALCIUM 8.7 mg/dL (8.4-10.2)
[2018-02-17 17:18] LABS: INR 1.1; PROTHROMBIN TIME 12.1 Seconds (9.8-13.1)
[2018-02-17 17:21] LABS: PARTIAL THROMBOPLASTIN TIME 26.9 Seconds (25.6-37.1)
--- NOTE | 2018-02-17 18:09 | US ---
Date of service: 02/17/2018 PROCEDURE: Duplex ultrasound of the bilateral lower extremity arteries. HISTORY: b/l leg pain s/p CABG COMPARISON: None available. TECHNIQUE: Grayscale and duplex Doppler evaluation of the bilateral common femoral, superficial femoral, popliteal, posterior tibial and dorsalis pedis arteries was performed.. FINDINGS: RIGHT LOWER EXTREMITY: RIGHT COMMON FEMORAL ARTERY: Widely patent. Maximal flow velocity of 63.6 cm/s. RIGHT SUPERFICIAL FEMORAL ARTERY: Widely patent. Maximal flow velocity of 51.4 cm/s. RIGHT POPLITEAL ARTERY:Widely patent. Maximal flow velocity of 54.9 cm/s. RIGHT POSTERIOR TIBIAL ARTERY: Widely patent. Maximal flow velocity of 21.3 cm/s. RIGHT DORSALIS PEDIS ARTERY: Widely patent. Maximal flow velocity of 36.5 cm/s. LEFT LOWER EXTREMITY: LEFT COMMON FEMORAL ARTERY: Widely patent. Maximal flow velocity of 64.7 cm/s. LEFT SUPERFICIAL FEMORAL ARTERY: Widely patent. Maximal flow velocity of 55.9 cm/s. LEFT POPLITEAL ARTERY:Widely patent. Maximal flow velocity of 48.8 cm/s. LEFT POSTERIOR TIBIAL ARTERY: Widely patent. Maximal flow velocity of 35.5 cm/s. LEFT DORSALIS PEDIS ARTERY: Widely patent. Maximal flow velocity of 25.6 cm/s. OTHER FINDINGS: None. IMPRESSION: Intimal thickening and diffuse heterogeneous plaque formation. Findings are approximately symmetrical. No evidence of occlusive disease or critical arterial stenoses in the lower extremities.
--- NOTE | 2018-02-17 18:10 | RAD ---
Date of service: 02/17/2018 PROCEDURE: Right Knee Radiographs. HISTORY: R KNEE PAIN COMPARISON: None. FINDINGS: BONES: Normal. No fracture. JOINTS: Normal. No osteoarthritis. JOINT EFFUSION: None. OTHER FINDINGS: Vascular clips are seen in the soft tissues the medial aspect of the distal femur IMPRESSION: No acute abnormality.
--- NOTE | 2018-02-17 19:16 | ED PDOC ---
Lower Extremity Pain/Injury Time Seen by Provider: 02/17/18 15:24 Chief Complaint (Nursing): Lower Extremity Problem/Injury Chief Complaint (Provider): R leg pain History Per: Patient History/Exam Limitations: no limitations Onset/Duration Of Symptoms: Days (1 week ) Current Symptoms Are (Timing): Still Present Past Medical History Vital Signs: Last Vital Signs Temp 98 F 02/17/18 15:19 Pulse 75 02/17/18 15:19 Resp 18 02/17/18 15:19 BP 163/56 H 02/17/18 15:19 Pulse Ox 98 02/17/18 15:19 - Medical History PMH: Anemia, Arthritis, Dementia, Diabetes, Gastritis, Gall Bladder Disease, HTN, Hypercholesterolemia, Hyperlipidemia, Osteoporosis Denies: Chronic Kidney Disease - Surgical History Surgical History: Cholecystectomy - Family History Family History: States: Unknown Family Hx - Home Medications Home Medications: Ambulatory Orders Medication Instructions Recorded Carvedilol [Coreg] 3.125 mg PO Q12H 10/28/16 Donepezil HCl [Aricept] 10 mg PO DAILY 10/28/16 Insulin Degludec [Tresiba 28 unit SQ 1330 10/28/16 Flextouch U-100] Temazepam [Restoril] 15 mg PO HS 10/28/16 Cholecalciferol [Vitamin D 1000 IU] 5,000 iu PO DAILY tab 10/31/16 Losartan [Cozaar] 25 mg PO DAILY 06/08/17 Nateglinide 120 mg PO BID 06/08/17 Simvastatin 20 mg PO DAILY 06/08/17 Ascorbic Acid [Vitamin C] 1,000 mg PO DAILY 02/17/18 Linagliptin [Tradjenta] 5 mg PO DAILY 02/17/18 Mirtazapine [Remeron] 15 mg PO HS 02/17/18 Naproxen [Naprosyn Tab] 250 mg PO BID #14 tab 02/17/18 Ramelteon [Rozerem] 8 mg PO HS 02/17/18 - Allergies Allergies/Adverse Reactions: Allergies Allergy/AdvReac Type Severity Reaction Status Date / Time No Known Allergies Allergy Verified 02/17/18 15:19 - Laboratory Results Result Diagrams: 02/17/18 16:56 02/17/18 16:56 - ECG O2 Sat by Pulse Oximetry: 98 Disposition - Clinical Impression Clinical Impression: Leg pain - Patient ED Disposition Is Patient to be Admitted: No Counseled Patient/Family Regarding: Studies Performed, Diagnosis, Need For Followup - Disposition Disposition: Routine/Home Disposition Time: 19:18 Additional Instructions: Followup with PMD in 2-3 days, return to ER for any worse or new symptoms. Take naprosyn as needed for pain 2x daily. Prescriptions: Naproxen [Naprosyn Tab] 250 mg PO BID #14 tab Instructions: Muscle and Bone Pain (DC), Knee Pain (DC) Print Language: MALTESE
[2018-02-17 19:48] VITALS: BP 163/73; PULSE 80; RESP 17
[2018-02-17 19:49] VITALS: O2SAT 98
--- NOTE | 2018-02-18 10:35 | CARD ---
APPROVED REPORT Date of service: 02/17/2018 EKG Measurement Heart [id number] [id number] <Conclusion> Sinus rhythm with 1st degree AV block Low voltage QRS Abnormal ECG
== END 2018-02-17 19:48 | disposition home or self-care (01) ==
LOC: H.ER 14:39
DX: M79.604 Pain in right leg (principal); E11.9 Type 2 diabetes mellitus without complications; E78.00 Pure hypercholesterolemia, unspecified; F03.90 Unspecified dementia, unspecified severity, without behavioral disturbance, psychotic disturbance, mood disturbance, and anxiety; I10 Essential (primary) hypertension; M81.0 Age-related osteoporosis without current pathological fracture; Z95.1 Presence of aortocoronary bypass graft